=== PATIENT | female | born 1970 | race Caucasian/White ===

== ENCOUNTER 2017-02-07 19:49 | Inpatient (IN) ==
--- NOTE | 2017-02-07 20:43 | Emergency Department Note ---
Disposition Clinical Impression: Acute gallstone pancreatitis Disposition: Admitted As Inpatient Referrals: NO,PCP [Primary Care Provider] - Forms: Work/School Release, ED Satisfaction Letter General Adult HPI - General Chief complaint: ED Abdominal Pain Stated complaint: having gallbladder attack nausea Time Seen by Provider: 02/07/17 20:33 Source: patient, family Limitations: no limitations - History of Present Illness HPI Narrative: 46-year-old female reports emergency department with severe epigastric pain. She reports the pain started on Monday but then abated and now has become worse. She states she had an ultrasound of her gallbladder about 10 years ago which demonstrated stones. She has not had a cholecystectomy. The patient has had a hysterectomy remotely. There is no history of trauma. No fever. No vomiting or diarrhea but nausea is reported. The patient has no personal history of pancreatitis. There is no history of flank pain urinary problems vaginal discharge or bleeding or current . The patient denies any rashes or fevers. No chest pain or shortness of breath. She does not have a known history of cardiac disease she is not anticoagulated this time. The patient has had no previous history of gastritis or peptic ulcer disease no blackened or bloody stool is described. The patient points to the midepigastric area when describing her pain. There is no history of jaundice. No other complaints or concerns no syncope leg swelling or pain coughing up blood or fever. Pain Scale: 9 - Related Data Home Medications Medication Instructions Recorded Confirmed Cabergoline 05/15/15 05/15/15 Metformin 05/15/15 05/15/15 Somatuline Depot 05/15/15 05/15/15 Previous Rx's Medication Instructions Recorded Erythromycin OPTH Oint 0.5 gm BOTH EYES QID 7 Days 05/15/15 [Erythromycin] Allergies Allergy/AdvReac Type Severity Reaction Status Date / Time No Known Allergies Allergy Verified 02/07/17 19:54 All systems ED: reviewed and negative except as stated. Past Medical History - Past Medical History Medical history: Reports: other (Acromegaly, gallstones) Psychiatric history: Reports: no psych history - Social History Smoking Status: Never smoker Alcohol use: Reports: occasionally Drug use: Reports: none Physical Exam - General Limitations: no limitations General appearance: alert, in no apparent distress - Head Head exam: atraumatic, normocephalic, normal inspection - Eye Eye exam: Present: normal appearance, PERRL, EOMI. Absent: scleral icterus, conjunctival injection, miosis, mydriasis, periorbital swelling - ENT ENT exam: normal exam, normal oropharynx, mucous membranes moist, TM's normal bilaterally, normal external ear exam - Neck Neck exam: Present: normal inspection, full ROM, trachea midline. Absent: tenderness - Chest Chest inspection: Present: symmetric chest wall rise. Absent: tenderness - Respiratory Respiratory exam: Present: normal lung sounds bilaterally. Absent: respiratory distress, wheezes, stridor, accessory muscle use, prolonged expiratory phase - Cardiovascular Cardiovascular exam: Present: regular rate, normal rhythm, normal heart sounds - Abdominal Exam Abdominal exam: Present: soft, tenderness. Absent: distention, guarding, rebound, rigidity, Archer's sign, Rovsing's sign, tenderness at McBurney's Point , ascites, pulsatile mass Abdominal tenderness: Present: epigastrium, severe - Extremities Exam Extremities exam: Present: normal inspection, full ROM. Absent: tenderness, normal capillary refill, pedal edema, joint swelling, calf tenderness - Expanded Lower Extremity Exam Lower leg exam: Absent: Homans' sign Neurovascular/Tendon exam: Present: normal capillary refill. Absent: pulse deficit, motor deficit, sensory deficit, tendon deficit, extremity cold to touch , pallor - Back Exam Back exam: Present: normal inspection, full ROM. Absent: tenderness, CVA tenderness (R), CVA tenderness (L), vertebral tenderness - Neurological Exam Neurological exam: Present: alert, oriented X3, CN II-XII intact. Absent: motor sensory deficit - Psychiatric Psychiatric exam: Present: normal affect, normal mood - Skin Skin exam: Present: warm, dry, intact, normal color. Absent: rash, cyanosis, diaphoresis, erythema, pallor, mottled Course Vital Signs Temperature 98.1 F 02/07/17 19:50 Pulse Rate 79 02/07/17 19:50 Respiratory Rate 18 02/07/17 19:50 Blood Pressure 151/79 02/07/17 19:50 O2 Sat by Pulse Oximetry 99 02/07/17 19:50 Temperature 98.1 F 02/07/17 19:50 Pulse Rate 57 02/07/17 21:56 Respiratory Rate 12 02/07/17 21:56 Blood Pressure 111/68 02/07/17 21:56 O2 Sat by Pulse Oximetry 95 02/07/17 21:56 Oxygen Delivery Oxygen Delivery Room Air Medical Decision Making - MDM Narrative Medical decision making narrative: The patient has elevated liver function tests including direct bilirubin, lipase and amylase, her CT scan indicates ductal dilatation, it appears the patient has gallstone pancreatitis. She has no leukocytosis or fever. I discussed the case with Dr. Pitts, surgeon on-call, he recommends consulting Dr. Workman, machine erector as the primary toy consultant. Dr. Workman is not available this evening but is here tomorrow per Dr. Pitts and the call service verifies that he will be available tomorrow. I discussed the case with the hospitalist on-call regarding the patient's care, he feels comfortable admitting the patient to this facility and managing the patient with Dr. Workman as toy consultant tomorrow. The patient is currently stable. She was given IV fluids and antiemetics and pain medications. She is being admitted for further evaluation and management. Regarding antibiotic therapy, the hospitalist did not feel be required based on the patient's afebrile status with no leukocytosis. - Lab Data Lab results reviewed: Yes I reviewed the patient's lab results. Result diagrams: 02/07/17 21:05 02/07/17 21:05 Lab Results 02/07/17 02/07/17 02/07/17 Range/Units 20:38 21:05 21:05 WBC 7.4 (4.3-11.1) K/mcL RBC 4.11 (3.82-4.97) M/mcL Hgb 11.7 (11.5-15.4) g/dL Hct 36.2 (35.3-44.9) % MCV 88.1 (83.0-100.0) fL MCH 28.5 (28.0-33.3) pg MCHC 32.3 (31.6-35.5) g/dL RDW 14.4 (11.5-14.5) % Plt Count 212 (140-400) K/mcL MPV 11.8 (9.4-12.4) fL Immature Gran % 0.1 (0-4) % Seg Neutrophils % 81.5 % Lymphocytes % 9.3 % Monocytes % 8.0 % Eosinophils % 0.7 % Basophils % 0.4 % Neutrophils # 6.0 (1.6-8.9) K/mcL Lymphocytes # 0.7 (0.6-4.6) K/mcL Monocytes # 0.6 (0.0-1.3) K/mcL Eosinophils # 0.1 (0.0-0.6) K/mcL Basophils # 0.0 (0.0-0.2) K/mcL Sodium 143 (136-145) mEq/L Potassium 4.2 (3.5-4.5) mEq/L Chloride 108 (98-109) mEq/L Carbon Dioxide 26 (19-29) mEq/L BUN 21 H (7-20) mg/dL Creatinine 0.90 (0.57-1.11) mg/dL Est GFR ( Amer) > 60 (> 60) Est GFR (Non-Af Amer) > 60 (> 60) BUN/Creatinine Ratio 23 (6-26) Glucose 183 H (70-99) mg/dL Calculated Osmolality 304 H (280-300) Lactic Acid (0.5-2.2) mmol/L Calcium 10.0 (8.6-10.8) mg/dL Total Bilirubin 2.2 H (0.2-1.2) mg/dL Direct Bilirubin 1.7 H (0.0-0.5) mg/dL Indirect Bilirubin 0.5 (0.0-1.2) mg/dL AST 330 H (5-34) Units/L ALT 825 H (0-55) Units/L Alkaline Phosphatase 332 H (38-126) Units/L Troponin I (0-0.03) ng/mL C-Reactive Protein 4 (Less than 5) mg/L Serum Total Protein 7.3 (6.0-8.3) g/dL Albumin 3.8 (3.5-5.0) g/dL Globulin 3.5 (2.4-3.5) g/dL Albumin/Globulin Ratio 1.1 (1.1-2.2) Amylase 723 H (25-125) Units/L Lipase 2244 H (8-78) Units/L Urine Color Celeste A (Yellow) Urine Clarity Hazy A (Clear) Urine pH 5.5 (5.0-8.0) pH Units Ur Specific [place] > 1.030 H (1.010-1.025) Urine Protein Negative (Neg-Trace) mg/dL Urine Glucose (UA) Normal (Normal) mg/dL Urine Ketones 15 H (Negative) mg/dL Urine Blood Negative (Negative) Urine Nitrite Negative (Negative) Urine Bilirubin Moderate H (Negative) Urine Urobilinogen 2.0 H (Normal) mg/dL Ur Leukocyte Esterase Small H (Negative) Urine Microscopic RBC 0-3 (0-3) per hpf Urine Microscopic WBC 5-15 H (0-3) per hpf Ur Squamous Epith Cells Moderate H (None-Few) per lpf Calcium Oxalate Crystal Present Urine Bacteria None Seen (None-Few) per hpf Hyaline Casts None Seen (None-Few) per lpf Ur Culture Indicated? YES A (NO) 02/07/17 02/07/17 Range/Units 21:05 21:05 WBC (4.3-11.1) K/mcL RBC (3.82-4.97) M/mcL Hgb (11.5-15.4) g/dL Hct (35.3-44.9) % MCV (83.0-100.0) fL MCH (28.0-33.3) pg MCHC (31.6-35.5) g/dL RDW (11.5-14.5) % Plt Count (140-400) K/mcL MPV (9.4-12.4) fL Immature Gran % (0-4) % Seg Neutrophils % % Lymphocytes % % Monocytes % % Eosinophils % % Basophils % % Neutrophils # (1.6-8.9) K/mcL Lymphocytes # (0.6-4.6) K/mcL Monocytes # (0.0-1.3) K/mcL Eosinophils # (0.0-0.6) K/mcL Basophils # (0.0-0.2) K/mcL Sodium (136-145) mEq/L Potassium (3.5-4.5) mEq/L Chloride (98-109) mEq/L Carbon Dioxide (19-29) mEq/L BUN (7-20) mg/dL Creatinine (0.57-1.11) mg/dL Est GFR ( Amer) (> 60) Est GFR (Non-Af Amer) (> 60) BUN/Creatinine Ratio (6-26) Glucose (70-99) mg/dL Calculated Osmolality (280-300) Lactic Acid 1.9 (0.5-2.2) mmol/L Calcium (8.6-10.8) mg/dL Total Bilirubin (0.2-1.2) mg/dL Direct Bilirubin (0.0-0.5) mg/dL Indirect Bilirubin (0.0-1.2) mg/dL AST (5-34) Units/L ALT (0-55) Units/L Alkaline Phosphatase (38-126) Units/L Troponin I 0.00 (0-0.03) ng/mL C-Reactive Protein (Less than 5) mg/L Serum Total Protein (6.0-8.3) g/dL Albumin (3.5-5.0) g/dL Globulin (2.4-3.5) g/dL Albumin/Globulin Ratio (1.1-2.2) Amylase (25-125) Units/L Lipase (8-78) Units/L Urine Color (Yellow) Urine Clarity (Clear) Urine pH (5.0-8.0) pH Units Ur Specific [place] (1.010-1.025) Urine Protein (Neg-Trace) mg/dL Urine Glucose (UA) (Normal) mg/dL Urine Ketones (Negative) mg/dL Urine Blood (Negative) Urine Nitrite (Negative) Urine Bilirubin (Negative) Urine Urobilinogen (Normal) mg/dL Ur Leukocyte Esterase (Negative) Urine Microscopic RBC (0-3) per hpf Urine Microscopic WBC (0-3) per hpf Ur Squamous Epith Cells (None-Few) per lpf Calcium Oxalate Crystal Urine Bacteria (None-Few) per hpf Hyaline Casts (None-Few) per lpf Ur Culture Indicated? (NO) - Radiology Data Radiology results reviewed: Yes I reviewed the patient's radiology results.
[2017-02-07 21:06] LABS: Bilirubin,Urine Moderate (Negative); Blood,Urine Negative (Negative); Glucose,Urine (UA) Normal (Normal); Ketones,Urine 15 mg/dL (Negative); Leukocyte Esterase,Urine Small (Negative); Nitrite,Urine Negative (Negative); PH,Urine 5.5 pH Units (5.0-8.0); Protein,Urine Negative (Neg-Trace); Specific Gravity,Urine > 1.030 (1.010-1.025)
[2017-02-07 21:13] LABS: Bacteria,Urine None Seen per hpf (None-Few); Hyaline Casts,Urine None Seen per lpf (None-Few); Squamous Epithelial Cell,Urine Moderate per lpf (None-Few)
[2017-02-07 21:21] LABS: Basophils % 0.4 %; Eosinophils # 0.1 K/mcL (0.0-0.6); Eosinophils % 0.7 %; Hematocrit 36.2 % (35.3-44.9); Hemoglobin 11.7 g/dL (11.5-15.4); Immature Granulocytes % 0.1 % (0-4); Lymphocytes # 0.7 K/mcL (0.6-4.6); Lymphocytes % 9.3 %; Mean Corpuscular HGB Conc 32.3 g/dL (31.6-35.5); Mean Corpuscular Hemoglobin 28.5 pg (28.0-33.3); Mean Corpuscular Volume 88.1 fL (83.0-100.0); Mean Platelet Volume 11.8 fL (9.4-12.4); Monocytes # 0.6 K/mcL (0.0-1.3); Platelet Count 212 K/mcL (140-400); Red Blood Count 4.11 M/mcL (3.82-4.97); Red Cell Distribution Width 14.4 % (11.5-14.5); Segmented Neutrophils % 81.5 %
[2017-02-07 21:23] LABS: Clarity,Urine Hazy (Clear); Color,Urine Amber (Yellow)
[2017-02-07] MEDS ORDERED: *HR* HYDROmorphone (PF) 1 MG/ML SYRINGE IVP ONE (21:29)
[2017-02-07] MEDS ORDERED: Ondansetron 4 MG/2 ML VIAL IVP ONE (21:29)
[2017-02-07] MEDS ORDERED: 0.9 % Sodium Chloride 1,000 ML IVC ONE (21:30)
[2017-02-07 21:37] LABS: Alanine Aminotransferase 825 Units/L (0-55); Albumin 3.8 g/dL (3.5-5.0); Albumin/Globulin Ratio 1.1 (1.1-2.2); Alkaline Phosphatase 332 Units/L (38-126); Amylase 723 Units/L (25-125); Aspartate Amino Transferase 330 Units/L (5-34); BUN/Creatinine Ratio 23 (6-26); Bilirubin,Direct 1.7 mg/dL (0.0-0.5); Bilirubin,Indirect 0.5 mg/dL (0.0-1.2); Bilirubin,Total 2.2 mg/dL (0.2-1.2); Blood Urea Nitrogen 21 mg/dL (7-20); Carbon Dioxide 26 mEq/L (19-29); Chloride 108 mEq/L (98-109); Globulin 3.5 g/dL (2.4-3.5); Glucose 183 mg/dL (70-99); Osmolality,Calculated 304 (280-300); Potassium 4.2 mEq/L (3.5-4.5); Sodium 143 mEq/L (136-145); Total Protein 7.3 g/dL (6.0-8.3); eGFR For African Americans > 60 (> 60); eGFR For Non-African Americans > 60 (> 60)
[2017-02-07 21:38] LABS: Calcium Oxalate Crystals,Urine Present
[2017-02-07 21:39] LABS: RBC,Urine 0-3 per hpf (0-3)
[2017-02-07 22:08] LABS: C-Reactive Protein 4 mg/L (Less than 5)
[2017-02-07 22:12] LABS: Lipase 2244 Units/L (8-78)
[2017-02-08] MEDS ORDERED: *HR* HYDROmorphone (PF) 1 MG/ML SYRINGE IVP PRN (03:02)
[2017-02-08] MEDS ORDERED: Naloxone 0.4 MG/ML INJ IVP PRN ×2 (03:02)
[2017-02-08] MEDS ORDERED: *HR* Morphine 2 MG/ML SYRINGE IVP PRN (03:02)
[2017-02-08] MEDS ORDERED: Acetaminophen 325 MG TABLET PO PRN (03:02)
[2017-02-08] MEDS ORDERED: Ondansetron 4 MG/2 ML VIAL IVP PRN (03:02)
--- NOTE | 2017-02-08 03:09 | Internal Med History&Physical ---
Date of Encounter: 02/08/17 Time of Encounter: 03:06 Assessment and Plan (1) Acute gallstone pancreatitis Current visit: Yes Status: Acute Acute pancreatitis likely secondary to cholelithiasis Surgery and GI consult for possible ERCP and cholecystectomy at some point Keep nothing by mouth, IV fluids, Dilaudid as needed Follow lipase Protonix IV for GI prophylaxis and sequential compression devices for DVT prophylaxis. The patient will be admitted as inpatient, expected to stay more than 2 midnights. Full code. Time spent on this admission 40 minutes (2) Dehydration Current visit: Yes Status: Acute Secondary to pancreatitis (3) Acromegaly Current visit: Yes Status: Acute (4) Accelerated hypertension Current visit: Yes Status: Acute May use hydralazine as needed (5) Cholelithiasis Current visit: Yes Status: Acute Qualifiers: Cholelithiasis location: gallbladder Cholecystitis presence: without cholecystitis Biliary obstruction: with biliary obstruction Qualified Code(s ): K80.21 - Calculus of gallbladder without cholecystitis with obstruction (6) Hyperglycemia Current visit: Yes Status: Acute Likely related to pancreatitis next Consider insulin sliding scale Internal Medicine - H&P: HPI Chief complaint: Abdominal pain Admitted From: Emergency Dept History of present illness: Ms. Mcintosh is a 46 year old female with a past medical history of acromegaly, cholelithiasis, came complaining of severe abdominal pain that started on Monday. The patient says that she does not drink alcohol regularly but drank 1 beer on Monday she does not remember the last time that she drank before that time. She was diagnosed with gall bladder stones 10 years ago but did not have a cholecystectomy. Described the pain as 10 out of 10 in intensity sharp, epigastric radiating to the back, accompanied by nausea and vomiting. CT scan of the abdomen shows biliary duct dilatation with distended gallbladder containing sludge and multiple stones. Lipase is 2244 amylase 723 AST 330 ALT [address] Pitts was contacted by the ER physician and recommended to consult Dr. Workman for a possible ERCP. Bilirubin total is 2.2 direct is 1.7. She is dehydrated, received Dilaudid in the emergency room. Blood pressure is 151/79. 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), hysterectomy, other (Left knee surgeries 2, tonsillectomy, hysterectomy, transnasal surgery for hypophysis tumor) - Social History Smoking Status: Never smoker Alcohol use: occasionally Drug use: none - Family History Mother Living Status: Still Living Hx Family Cardiac Disorders: No (HTN) Hx Family Cancer: No (ovarian) - Additional Family History Additional family history: Mother with CAD and father with diabetes Internal Medicine - H&P: Meds Somatuline Depot 25 mg IM DAILY 05/15/15 [History] Allergies No Known Allergies Allergy (Verified 02/07/17 19:54) All Systems PM: A 10-system review of systems was performed and is negative for pertinent findings except as documented above in the HPI. Review of systems: Abdominal pain, other systems out of the 10 reviewed were negative UA shows 15 white blood cells but she denies any dysuria - Constitutional Vitals: Temp Pulse Resp BP Pulse Ox 97.6 F 56 15 113/77 95 02/08/17 01:21 02/08/17 01:21 02/08/17 01:21 02/08/17 01:21 02/08/17 01:21 General appearance: Present: A&O X 3 (Dry mucosa) - Head Head exam: Present: atraumatic, normocephalic - Eye Eye exam: Present: PERRL, conjuntiva pink, sclera anicteric Pupils: Present: PERRL - Neck Neck exam general surgery: Present: supple, trachea midline. Absent: lymphadenopathy - Respiratory Respiratory exam: Present: CTAB. Absent: accessory muscle use, rales, rhonchi, wheezes - Cardiovascular Cardiovascular exam: Present: RRR, +S1, +S2. Absent: diastolic murmur, gallop, rubs, systolic murmur - GI/Abdominal GI/Abdominal exam: Present: hypoactive bowel sounds, normal bowel sounds, soft, tenderness (Epigastric tenderness), no peritoneal signs. Absent: distended - Extremities Exam Extremities exam: Present: warm, radial pulses palpable and symetrical. Absent : calf tenderness, cyanotic, pedal edema - Neurological Exam Neurological exam: Present: CN II-XII intact, oriented X3, no focal deficits. Absent: pronater drift, facial droop, speech deficit - Skin Skin exam: Present: dry, intact Internal Med - H&P Results - Labs CBC & Chem 7: 02/07/17 21:05 02/07/17 21:05
[2017-02-08] MEDS ORDERED: D5% in Water 1,000 ML IVC PRN (03:15)
[2017-02-08] MEDS ORDERED: Dextrose Gel 15 GM PO PRN ×2 (03:15)
[2017-02-08] MEDS ORDERED: *HR* Dextrose 50 % in Water (Syg) 50 ML SYRINGE IVP PRN (03:15)
[2017-02-08] MEDS: 0.9 % Sodium Chloride 1,000 ML IVC SCH ×4 (03:29→20:51)
[2017-02-08 05:26] LABS: Hematocrit 32.6 % (35.3-44.9); Hemoglobin 10.5 g/dL (11.5-15.4); Mean Corpuscular HGB Conc 32.2 g/dL (31.6-35.5); Mean Corpuscular Hemoglobin 27.9 pg (28.0-33.3); Mean Corpuscular Volume 86.5 fL (83.0-100.0); Mean Platelet Volume 11.8 fL (9.4-12.4); Platelet Count 207 K/mcL (140-400); Red Blood Count 3.77 M/mcL (3.82-4.97); Red Cell Distribution Width 14.3 % (11.5-14.5)
[2017-02-08 05:45] LABS: Alanine Aminotransferase 713 Units/L (0-55); Albumin 3.2 g/dL (3.5-5.0); Albumin/Globulin Ratio 1.1 (1.1-2.2); Alkaline Phosphatase 305 Units/L (38-126); Aspartate Amino Transferase 335 Units/L (5-34); BUN/Creatinine Ratio 24 (6-26); Bilirubin,Total 2.2 mg/dL (0.2-1.2); Blood Urea Nitrogen 17 mg/dL (7-20); Calcium 9.1 mg/dL (8.6-10.8); Carbon Dioxide 22 mEq/L (19-29); Chloride 110 mEq/L (98-109); Chol/HDL Ratio 2.3 (0-4.9); Cholesterol 181 mg/dL (< 200); Globulin 2.9 g/dL (2.4-3.5); Glucose 143 mg/dL (70-99); HDL Cholesterol 78 mg/dL (40-59); LDL Cholesterol,Calculated 97 mg/dL (0-99); Osmolality,Calculated 294 (280-300); Potassium 3.9 mEq/L (3.5-4.5); Sodium 140 mEq/L (136-145); Total Protein 6.1 g/dL (6.0-8.3); Triglycerides 30 mg/dL (< 150); eGFR For African Americans > 60 (> 60); eGFR For Non-African Americans > 60 (> 60)
[2017-02-08 06:35] LABS: Lipase 1970 Units/L (8-78)
[2017-02-08] MEDS: Insulin LISPRO 300 UNITS/3 ML VIAL SQ SCH ×3 (07:38→19:32)
[2017-02-08] MEDS: Pantoprazole 40 MG VIAL IVP SCH (07:42)
--- NOTE | 2017-02-08 09:45 | Event Note ---
Date of Encounter: 02/08/17 Time of Encounter: 09:00 46 F presented with epigastric pain. Lipase >2000. bilirrubin 2.2. DB 1.7. AST 335. ALT 713. AL phos 305. triglycerides 30. CTAP shows distended gallbladder containing sludge or multiples tiny stones and biliary duct dilation, unremarkable pancreas. Started on IV fluids, IV dilaudid and NPO. Now, patient reports mild nausea and epigastric pain /10. no vomiting. No history of pancreatitis. abdomen soft, non-distended, mild tenderness in epigastric area. a/p 1. Acute pancreatitis. 2. Gallbladder stones. 3. Hyperbilirrubinemia IV fluids. IV dilaudid prn. NPO. Us gallbladder. MRCP. close monitor of LFTs. Surgery and GI consulted.
--- NOTE | 2017-02-08 10:43 | Electrocardiograph Report ---
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
--- NOTE | 2017-02-08 12:35 | Event Note ---
<Deniz Jones - Last Filed: 02/08/17 12:32> Date of Encounter: 02/08/17 Time of Encounter: 11:30 Attempted to see patient 3 times, and patient was unavailable. Chrat reviewed, full consult tomorrow. Plan for ERCP tomorrow. Keep NPO at midnight. <Amadeo Workman - Last Filed: 02/08/17 18:50> Date of Encounter: 02/08/17 Time of Encounter: 18:00 MRCP negative for any stone. pain has resolved. We will start the patient on clear nothing by mouth after midnight no ERCP gallbladder surgery as per Dr. Pitts
[2017-02-08] MEDS: SOMAVERT SQ SCH (12:41)
--- NOTE | 2017-02-08 15:15 | General Surgery Consult Note ---
<Shantel Lutz Rashmi - Last Filed: 02/08/17 15:10> Date of Encounter: 02/08/17 Time of Encounter: 14:30 Assessment and Plan (1) Acute gallstone pancreatitis Current Visit: Yes Status: Acute Nothing by mouth IV fluids Supportive care and pain control GI has been consulted for possible ERCP We will continue to follow and assess progress and plan for laparoscopic cholecystectomy with resolution of pancreatitis Repeat a.m. labs Incentive Spirometer every 1 hour while awake History of Present Illness Consult date: 02/08/17 Reason for consult: other (gallstone pancreatitis) Requesting physician: Jensen Hdez History of present illness: Mrs. Mcintosh is a 46 year old female with a history of acromegaly, pituitary tumor, iron deficiency anemia. She reported to the emergency department with a 48 hour history of epigastric abdominal pain. She states the pain was constant and severe and located in the epigastric region. She has never experienced pain like this in the past. The pain is sharp and stabbing. She did experience associated nausea without vomiting. She had loss of appetite. She admits to difficulty taking a deep breath due to abdominal discomfort. Denies any chest pains. She admits to passing dark urine despite being well hydrated. Denies any difficulty with urination. Her laboratory studies and radiologic studies are consistent with gallstone pancreatitis. We have been asked to see and evaluate the patient for recommendations. 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), hysterectomy, other (Left knee surgeries 2, T&A, hysterectomy, transnasal surgery for pituitary tumor, tubal ligation) - Social History Smoking Status: Never smoker Alcohol use: occasionally Drug use: none - Family History Mother Living Status: Still Living Hx Family Cardiac Disorders: No (HTN) Hx Family Cancer: No (ovarian) Medications and Allergies Pegvisomant [Somavert] 25 mg SQ DAILY 05/15/15 [History] Allergies No Known Allergies Allergy (Verified 02/07/17 19:54) Review of Systems All systems PM: reviewed and no additional remarkable complaints except as stated (in the HPI) All systems PM: A 10-system review of systems was performed and is negative for pertinent findings except as documented above in the HPI. General Surgery Exam Initial Vital Signs Temp Pulse Resp BP Pulse Ox 98.1 F 79 18 151/79 99 02/07/17 19:50 02/07/17 19:50 02/07/17 19:50 02/07/17 19:50 02/07/17 19:50 - General physical appearance well developed, well nourished, no distress - Eyes normal ocular movement - ENT normal mucosa, atraumatic, normocephalic - Neck trachea midline - Respiratory normal respiratory effort, clear to auscultation - Cardiovascular Cardiovascular exam: Present: RRR - Abdomen Abdomen general surgery: Present: bowel sounds present, soft, tender Abdominal Tenderness: Present: epigastic - Integumentary Integumentary general surgery: Present: warm and dry - Neurologic Present: CN 2-12 grossly intact - Musculoskeletal Present: normal gait, normal posture - Psychiatric Psychiatric general surgery: Present: appropriate, oriented to person, oriented to place, oriented to time, speech is normal, memory intact Exam Initial Vital Signs Temp Pulse Resp BP Pulse Ox 98.1 F 79 18 151/79 99 02/07/17 19:50 02/07/17 19:50 02/07/17 19:50 02/07/17 19:50 02/07/17 19:50 Results - Labs 02/08/17 04:55 02/08/17 04:55 Abnormal lab results RBC 3.77 M/mcL (3.82-4.97) L 02/08/17 04:55 Hgb 10.5 g/dL (11.5-15.4) L 02/08/17 04:55 Hct 32.6 % (35.3-44.9) L 02/08/17 04:55 MCH 27.9 pg (28.0-33.3) L 02/08/17 04:55 Chloride 110 mEq/L (98-109) H 02/08/17 04:55 Glucose 143 mg/dL (70-99) H 02/08/17 04:55 Total Bilirubin 2.2 mg/dL (0.2-1.2) H 02/08/17 04:55 Direct Bilirubin 1.7 mg/dL (0.0-0.5) H 02/07/17 21:05 AST 335 Units/L (5-34) H 02/08/17 04:55 ALT 713 Units/L (0-55) H 02/08/17 04:55 Alkaline Phosphatase 305 Units/L (38-126) H 02/08/17 04:55 Albumin 3.2 g/dL (3.5-5.0) L 02/08/17 04:55 HDL Cholesterol 78 mg/dL (40-59) H 02/08/17 04:55 Amylase 723 Units/L (25-125) H 02/07/17 21:05 Lipase 1970 Units/L (8-78) H 02/08/17 04:55 Urine Color Celeste (Yellow) A 02/07/17 20:38 Urine Clarity Hazy (Clear) A 02/07/17 20:38 Ur Specific Michael > 1.030 (1.010-1.025) H 02/07/17 20:38 Urine Ketones 15 mg/dL (Negative) H 02/07/17 20:38 Urine Bilirubin Moderate (Negative) H 02/07/17 20:38 Urine Urobilinogen 2.0 mg/dL (Normal) H 02/07/17 20:38 Ur Leukocyte Esterase Small (Negative) H 02/07/17 20:38 Urine Microscopic WBC 5-15 per hpf (0-3) H 02/07/17 20:38 Ur Squamous Epith Cells Moderate per lpf (None-Few) H 02/07/17 20:38 Ur Culture Indicated? YES (NO) A 02/07/17 20:38 Diabetes panel 02/08/17 Range/Units 04:55 Sodium 140 (136-145) mEq/L Potassium 3.9 (3.5-4.5) mEq/L Chloride 110 H (98-109) mEq/L Carbon Dioxide 22 (19-29) mEq/L BUN 17 (7-20) mg/dL Creatinine 0.71 (0.57-1.11) mg/dL Glucose 143 H (70-99) mg/dL Calcium 9.1 (8.6-10.8) mg/dL AST 335 H (5-34) Units/L ALT 713 H (0-55) Units/L Alkaline Phosphatase 305 H (38-126) Units/L Albumin 3.2 L (3.5-5.0) g/dL Triglycerides 30 (< 150) mg/dL HDL Cholesterol 78 H (40-59) mg/dL Calcium panel 02/08/17 Range/Units 04:55 Calcium 9.1 (8.6-10.8) mg/dL Albumin 3.2 L (3.5-5.0) g/dL Pituitary panel 02/08/17 Range/Units 04:55 Sodium 140 (136-145) mEq/L Potassium 3.9 (3.5-4.5) mEq/L Chloride 110 H (98-109) mEq/L Carbon Dioxide 22 (19-29) mEq/L BUN 17 (7-20) mg/dL Creatinine 0.71 (0.57-1.11) mg/dL Glucose 143 H (70-99) mg/dL Calcium 9.1 (8.6-10.8) mg/dL Adrenal panel 02/08/17 Range/Units 04:55 Sodium 140 (136-145) mEq/L Potassium 3.9 (3.5-4.5) mEq/L Chloride 110 H (98-109) mEq/L Carbon Dioxide 22 (19-29) mEq/L BUN 17 (7-20) mg/dL Creatinine 0.71 (0.57-1.11) mg/dL Glucose 143 H (70-99) mg/dL Calcium 9.1 (8.6-10.8) mg/dL Total Bilirubin 2.2 H (0.2-1.2) mg/dL AST 335 H (5-34) Units/L ALT 713 H (0-55) Units/L Alkaline Phosphatase 305 H (38-126) Units/L Albumin 3.2 L (3.5-5.0) g/dL All other labs normal. - Imaging CT scan - abdomen: report reviewed CT scan - pelvis: report reviewed US - abdomen: report reviewed Additional studies: Abdomen/Pelvis CT 02/07/17 21:32 IMPRESSION: Distended gallbladder containing sludge or multiple tiny stones and biliary ductal dilation but no scan evidence for acute cholecystitis. D/ / Artis Galeas MD / Artis Galeas MD Interpreting Provider: Artis Galeas MD Abdomen MRI 02/08/17 07:22 IMPRESSION: 1. Mild intra and extrahepatic biliary dilatation. Common bile duct measures 8 mm, previously [address] dated 02/07/2017. No choledocholithiasis. Findings may be secondary to a recently passed stone. 2. Cholelithiasis without definite MRI evidence of acute cholecystitis. D/ / 02/08/2017 12:45:47 Ayah Blanco MD / vonda Interpreting Provider: Ayah Blanco MD Gallbladder Ultrasound 02/08/17 07:23 IMPRESSION: 1. Cholelithiasis without evidence for acute cholecystitis. 2. Biliary ductal dilatation. Please refer to subsequent MRCP. D/ / Sesar Hunter MD / Sesar Hunter MD Interpreting Provider: Sesar Hunter MD Consult Discharge Plan - Plan Referrals: Eron Jackson MD [Partnered Physician] - 02/23/17 10:00 am (Please bring the new patient packet you will receive in the mail. You will also need to bring your photo ID, insurance card and a list of all meds you are taking. If you have to cancel, please give a 24 hour notice. Thank you) - Attending Attestation I examined this patient and my medical decision-making was reviewed with the COMMUNICATIONS PROFESSOR/PA/Advanced Practice Nurse/Resident Physician. I agree with the documented findings, disposition and treatment plan as described except to the extent set forth below. <Calixto Pitts M - Last Filed: 02/09/17 12:28> Date of Encounter: 02/09/17 Assessment and Plan (1) Acute gallstone pancreatitis Current Visit: Yes Status: Acute Review of Systems All systems PM: A 10-system review of systems was performed and is negative for pertinent findings except as documented above in the HPI. General Surgery Exam Initial Vital Signs Temp Pulse Resp BP Pulse Ox 98.1 F 79 18 151/79 99 02/07/17 19:50 02/07/17 19:50 02/07/17 19:50 02/07/17 19:50 02/07/17 19:50 Exam Initial Vital Signs Temp Pulse Resp BP Pulse Ox 98.1 F 79 18 151/79 99 02/07/17 19:50 02/07/17 19:50 02/07/17 19:50 02/07/17 19:50 02/07/17 19:50 Results - Labs 02/09/17 04:59 02/09/17 04:59 Abnormal lab results RBC 3.57 M/mcL (3.82-4.97) L 02/09/17 04:59 Hgb 10.1 g/dL (11.5-15.4) L 02/09/17 04:59 Hct 32.1 % (35.3-44.9) L 02/09/17 04:59 MCHC 31.5 g/dL (31.6-35.5) L 02/09/17 04:59 RDW 14.7 % (11.5-14.5) H 02/09/17 04:59 Chloride 111 mEq/L (98-109) H 02/09/17 04:59 Magnesium 1.5 mg/dL (1.6-2.6) L 02/09/17 04:59 Direct Bilirubin 0.6 mg/dL (0.0-0.5) H 02/09/17 04:59 AST 146 Units/L (5-34) H 02/09/17 04:59 ALT 517 Units/L (0-55) H 02/09/17 04:59 Alkaline Phosphatase 265 Units/L (38-126) H 02/09/17 04:59 Serum Total Protein 5.7 g/dL (6.0-8.3) L 02/09/17 04:59 Albumin 3.1 g/dL (3.5-5.0) L 02/09/17 04:59 HDL Cholesterol 78 mg/dL (40-59) H 02/08/17 04:55 Urine Color Celeste (Yellow) A 02/07/17 20:38 Urine Clarity Hazy (Clear) A 02/07/17 20:38 Ur Specific Michael > 1.030 (1.010-1.025) H 02/07/17 20:38 Urine Ketones 15 mg/dL (Negative) H 02/07/17 20:38 Urine Bilirubin Moderate (Negative) H 02/07/17 20:38 Urine Urobilinogen 2.0 mg/dL (Normal) H 02/07/17 20:38 Ur Leukocyte Esterase Small (Negative) H 02/07/17 20:38 Urine Microscopic WBC 5-15 per hpf (0-3) H 02/07/17 20:38 Ur Squamous Epith Cells Moderate per lpf (None-Few) H 02/07/17 20:38 Ur Culture Indicated? YES (NO) A 02/07/17 20:38 Diabetes panel 02/09/17 02/09/17 Range/Units 04:59 04:59 Sodium 142 (136-145) mEq/L Potassium 3.9 (3.5-4.5) mEq/L Chloride 111 H (98-109) mEq/L Carbon Dioxide 25 (19-29) mEq/L BUN 10 (7-20) mg/dL Creatinine 0.71 (0.57-1.11) mg/dL Glucose 83 (70-99) mg/dL Calcium 8.6 (8.6-10.8) mg/dL AST 144 H 146 H (5-34) Units/L ALT 509 H 517 H (0-55) Units/L Alkaline Phosphatase 268 H 265 H (38-126) Units/L Albumin 3.1 L 3.1 L (3.5-5.0) g/dL Calcium panel 02/09/17 02/09/17 Range/Units 04:59 04:59 Calcium 8.6 (8.6-10.8) mg/dL Albumin 3.1 L 3.1 L (3.5-5.0) g/dL Pituitary panel 02/09/17 Range/Units 04:59 Sodium 142 (136-145) mEq/L Potassium 3.9 (3.5-4.5) mEq/L Chloride 111 H (98-109) mEq/L Carbon Dioxide 25 (19-29) mEq/L BUN 10 (7-20) mg/dL Creatinine 0.71 (0.57-1.11) mg/dL Glucose 83 (70-99) mg/dL Calcium 8.6 (8.6-10.8) mg/dL Adrenal panel 02/09/17 02/09/17 Range/Units 04:59 04:59 Sodium 142 (136-145) mEq/L Potassium 3.9 (3.5-4.5) mEq/L Chloride 111 H (98-109) mEq/L Carbon Dioxide 25 (19-29) mEq/L BUN 10 (7-20) mg/dL Creatinine 0.71 (0.57-1.11) mg/dL Glucose 83 (70-99) mg/dL Calcium 8.6 (8.6-10.8) mg/dL Total Bilirubin 1.0 D 1.0 (0.2-1.2) mg/dL AST 144 H 146 H (5-34) Units/L ALT 509 H 517 H (0-55) Units/L Alkaline Phosphatase 268 H 265 H (38-126) Units/L Albumin 3.1 L 3.1 L (3.5-5.0) g/dL All other labs normal. - Attending Attestation I reviewed the assessment and evaluation with the nurse practitioner present. Patient with recent onset of epigastric abdominal pain has been sharp in nature. She states that she has had a history of some mild discomfort that has been going on for a year or 2 that was intermittent in nature. Currently states her pain is improved (absent). She denies any nausea or vomiting and is nontender to palpation. Agree with evaluation for possible ERCP due to her gallstone pancreatitis. Discussed with the patient about the possibility of performing a laparoscopic cholecystectomy during this admission depending upon how she fares doing in the next several days with regards to her pancreatitis and whether or not she has an ERCP.
[2017-02-09] MEDS: Insulin LISPRO 300 UNITS/3 ML VIAL SQ SCH ×4 (01:51→18:15)
[2017-02-09] MEDS: 0.9 % Sodium Chloride 1,000 ML IVC SCH ×2 (01:55→07:03)
[2017-02-09 05:48] LABS: Basophils % 0.5 %; Eosinophils # 0.1 K/mcL (0.0-0.6); Eosinophils % 2.7 %; Hematocrit 32.1 % (35.3-44.9); Hemoglobin 10.1 g/dL (11.5-15.4); Immature Granulocytes % 0.2 % (0-4); Lymphocytes # 1.4 K/mcL (0.6-4.6); Lymphocytes % 30.9 %; Mean Corpuscular HGB Conc 31.5 g/dL (31.6-35.5); Mean Corpuscular Hemoglobin 28.3 pg (28.0-33.3); Mean Corpuscular Volume 89.9 fL (83.0-100.0); Mean Platelet Volume 12.2 fL (9.4-12.4); Monocytes # 0.4 K/mcL (0.0-1.3); Monocytes % 8.6 %; Neutrophils # 2.5 K/mcL (1.6-8.9); Platelet Count 174 K/mcL (140-400); Red Blood Count 3.57 M/mcL (3.82-4.97); Red Cell Distribution Width 14.7 % (11.5-14.5); Segmented Neutrophils % 57.1 %
[2017-02-09 06:11] LABS: Albumin 3.1 g/dL (3.5-5.0); Albumin/Globulin Ratio 1.2 (1.1-2.2); Bilirubin,Direct 0.6 mg/dL (0.0-0.5); Bilirubin,Indirect 0.4 mg/dL (0.0-1.2); Globulin 2.6 g/dL (2.4-3.5); Magnesium 1.5 mg/dL (1.6-2.6); Total Protein 5.7 g/dL (6.0-8.3)
[2017-02-09 06:12] LABS: Alanine Aminotransferase 509 Units/L (0-55); Albumin 3.1 g/dL (3.5-5.0); Albumin/Globulin Ratio 1.2 (1.1-2.2); Alkaline Phosphatase 268 Units/L (38-126); Aspartate Amino Transferase 144 Units/L (5-34); BUN/Creatinine Ratio 14 (6-26); Blood Urea Nitrogen 10 mg/dL (7-20); Calcium 8.6 mg/dL (8.6-10.8); Carbon Dioxide 25 mEq/L (19-29); Chloride 111 mEq/L (98-109); Globulin 2.6 g/dL (2.4-3.5); Glucose 83 mg/dL (70-99); Lipase 49 Units/L (8-78); Osmolality,Calculated 292 (280-300); Potassium 3.9 mEq/L (3.5-4.5); Sodium 142 mEq/L (136-145); Total Protein 5.7 g/dL (6.0-8.3); eGFR For African Americans > 60 (> 60); eGFR For Non-African Americans > 60 (> 60)
[2017-02-09 06:28] LABS: Hepatitis A Antibody IgM Nonreactive (Nonreactive); Hepatitis B Core IgM Nonreactive (Nonreactive); Hepatitis B Surface Antigen Nonreactive (Nonreactive); Hepatitis C Virus Antibody Nonreactive (Nonreactive)
[2017-02-09] MEDS ORDERED: Magnesium Sulfate 1 GM in D5% in Water 100 ML IVPB ONE (08:34)
--- NOTE | 2017-02-09 08:43 | Internal Med Progress Note ---
<Ayah Garcia - Last Filed: 02/09/17 13:37> Date of Encounter: 02/09/17 Time of Encounter: 08:43 - Assessment and plan (1) Acute gallstone pancreatitis Current Visit: Yes Status: Acute Assessment and plan: Patient presented with signs and symptoms of acute gallstone pancreatitis with physical exam correlated to imaging as below. Common bile duct initially [address] decrease to 8 mm on MRI suggestive of passage of stone. On admission , laboratory results demonstrated elevated total bilirubin at 2.2, elevated direct bilirubin at 1.7, AST 330, ALT 825, alkaline phosphatase 332, amylase 723, lipase 2244. Laboratories today demonstrate trending downward further suggestive of stone passage. Total bilirubin 1.0, direct bilirubin 0.6 , AST 146, ALT 517, alkaline phosphatase 265, amylase 102, lipase 49. Given patient's downtrending labs in improving clinical status plan is to proceed with laparoscopic cholecystectomy with intraoperative cholangiogram as ERCP is not required at this time. On physical exam, patient's abdomen is soft nontender nondistended no peritoneal signs. Patient denies any nausea, vomiting , abdominal pain she is Asymptomatic at this time. Vital stable. Afebrile. Nonfocal neuro exam. Abdomen/Pelvis CT 02/07/17 21:32 IMPRESSION: Distended gallbladder containing sludge or multiple tiny stones and biliary ductal dilation but no scan evidence for acute cholecystitis. Abdomen MRI 02/08/17 07:22 IMPRESSION: 1. Mild intra and extrahepatic biliary dilatation. Common bile duct measures 8 mm, previously [address] dated 02/07/2017. No choledocholithiasis. Findings may be secondary to a recently passed stone. 2. Cholelithiasis without definite MRI evidence of acute cholecystitis. Gallbladder Ultrasound 02/08/17 07:23 IMPRESSION: 1. Cholelithiasis without evidence for acute cholecystitis. 2. Biliary ductal dilatation. Please refer to subsequent MRCP. Supportive care and pain control Nothing by mouth Decrease IV fluids at 100 mL per hour Incentive spirometer every 1 hour while awake PPI therapy: Patoprazole 40 mg IVP daily Anti-emetic: Zofran for nausea Hyperglycemia secondary to pancreatitis: Continue sliding scale insulin as needed per protocol. Surgery is following. Plan for cholecystectomy in next 12-[address] Pitts. Pending surgery recommendations for discharge. The assessment and plan as outlined above was discussed with the patient and/or family members who expressed understanding and agreement. All questions were answered. (2) Acromegaly Current Visit: Yes Status: Chronic Assessment and plan: Resume home medications/injections: Somavert SQ Daily. (3) Cholelithiasis Current Visit: Yes Status: Acute Assessment and plan: Laparoscopic cholecystectomy with intraoperative cholangiogram planned for today. Qualifiers: Cholelithiasis location: gallbladder Cholecystitis presence: without cholecystitis Biliary obstruction: with biliary obstruction Qualified Code(s ): K80.21 - Calculus of gallbladder without cholecystitis with obstruction (4) Dehydration Current Visit: Yes Status: Resolved Assessment and plan: On admission patient had dark urine and volume contraction. Patient was given IV fluid rehydration at 200 mils an hour over the past 2 days and has subsequently been making urine without difficulty that is "normal in color ". Her laboratory results now demonstrate slight overhydration. Will decrease fluids to 100 mils an hour. Continue to monitor. - Subjective Interval history: Patient was seen and examined. She reports no acute events overnight. She does express that she has had multiple bowel movements today and is urinating without difficulty and her urine color is back to normal. She denies any nausea or vomiting. She states that her pain is very well controlled at a 0 out of 10 today. Patient's partner is at bedside and is requesting to give her her medication. Expressed will discuss with pharmacy for clearance of injection for acromegaly status post transsphenoidectomy of pituitary tumor. Nurse was informed. Patient is in good spirits is conversant and pleasant. - Constitutional Vitals: Temp Pulse Resp BP Pulse Ox 97.5 F L 63 16 111/68 98 02/09/17 07:00 02/09/17 07:00 02/09/17 07:00 02/09/17 07:00 02/09/17 07:00 General appearance: Present: A&O X 3 (Dry mucosa) Exam: General: Cooperative, pleasant, no acute distress, alert and oriented 3, answers questions appropriately HEENT: Normocephalic, atraumatic, neck supple, trachea midline, Conjunctiva pink , sclera anicteric, EOMI, PERRL, oral mucosa moist, no orophargeal erythema or exudates Respiratory: No accessory muscle usage, clear to auscultation bilaterally, no wheezes/rhonchi/rales appreciated Cardiovascular: Regular rate and rhythm, S1 and S2 present, no murmurs/rubs/ gallops/clicks appreciated GI/abdominal: Nondistended, nontender, soft, normal bowel sounds, no peritoneal signs Extremities: No calf tenderness, noncyanotic, no pedal edema appreciated, warm, lower extremity pulses palpable and symmetrical Neurological: Alert and oriented 3, no facial droop, no focal deficits Skin: Dry, intact, normal color Internal Medicine: Result - Labs CBC & Chem 7: 02/09/17 04:59 02/09/17 04:59 Labs: Short CBC 02/09/17 Range/Units 04:59 WBC 4.4 (4.3-11.1) K/mcL Hgb 10.1 L (11.5-15.4) g/dL Hct 32.1 L (35.3-44.9) % Plt Count 174 (140-400) K/mcL Neutrophils # 2.5 (1.6-8.9) K/mcL BMP 02/09/17 04:59 Sodium 142 Potassium 3.9 Chloride 111 H Carbon Dioxide 25 BUN 10 Creatinine 0.71 Glucose 83 Calcium 8.6 Liver Function 02/09/17 02/09/17 Range/Units 04:59 04:59 Total Bilirubin 1.0 D 1.0 (0.2-1.2) mg/dL Direct Bilirubin 0.6 H (0.0-0.5) mg/dL AST 144 H 146 H (5-34) Units/L ALT 509 H 517 H (0-55) Units/L Alkaline Phosphatase 268 H 265 H (38-126) Units/L Albumin 3.1 L 3.1 L (3.5-5.0) g/dL - Impressions Impressions Abdomen MRI 02/08/17 07:22 IMPRESSION: 1. Mild intra and extrahepatic biliary dilatation. Common bile duct measures 8 mm, previously [address] dated 02/07/2017. No choledocholithiasis. Findings may be secondary to a recently passed stone. 2. Cholelithiasis without definite MRI evidence of acute cholecystitis. D/ / 02/08/2017 12:45:47 Ayah Blanco MD / vonda Interpreting Provider: Ayah Blanco MD Gallbladder Ultrasound 02/08/17 07:23 IMPRESSION: 1. Cholelithiasis without evidence for acute cholecystitis. 2. Biliary ductal dilatation. Please refer to subsequent MRCP. D/ / Sesar Hunter MD / Sesar Hunter MD Interpreting Provider: Sesar Hunter MD Consult Discharge Plan - Plan Referrals: Eron Jackson MD [Partnered Physician] - 02/23/17 10:00 am (Please bring the new patient packet you will receive in the mail. You will also need to bring your photo ID, insurance card and a list of all meds you are taking. If you have to cancel, please give a 24 hour notice. Thank you) <Renée Epps E - Last Filed: 02/09/17 15:47> Date of Encounter: 02/09/17 - Constitutional Vitals: Temp Pulse Resp BP Pulse Ox 98.4 F 73 17 116/64 96 02/09/17 14:53 02/09/17 14:53 02/09/17 14:53 02/09/17 14:53 02/09/17 14:53 Internal Medicine: Result - Labs CBC & Chem 7: 02/09/17 04:59 02/09/17 04:59 Labs: Short CBC 02/09/17 Range/Units 04:59 WBC 4.4 (4.3-11.1) K/mcL Hgb 10.1 L (11.5-15.4) g/dL Hct 32.1 L (35.3-44.9) % Plt Count 174 (140-400) K/mcL Neutrophils # 2.5 (1.6-8.9) K/mcL BMP 02/09/17 04:59 Sodium 142 Potassium 3.9 Chloride 111 H Carbon Dioxide 25 BUN 10 Creatinine 0.71 Glucose 83 Calcium 8.6 Liver Function 02/09/17 02/09/17 Range/Units 04:59 04:59 Total Bilirubin 1.0 D 1.0 (0.2-1.2) mg/dL Direct Bilirubin 0.6 H (0.0-0.5) mg/dL AST 144 H 146 H (5-34) Units/L ALT 509 H 517 H (0-55) Units/L Alkaline Phosphatase 268 H 265 H (38-126) Units/L Albumin 3.1 L 3.1 L (3.5-5.0) g/dL - Attending Attestation I examined this patient and reviewed laboratory, imaging and all diagnostic data. My medical decision-making was reviewed with Dr Ayah Garcia - Resident Physician. I agree with the documented findings, disposition and treatment plan as described above.
[2017-02-09] MEDS: Pantoprazole 40 MG VIAL IVP SCH (09:06)
[2017-02-09] MEDS: SOMAVERT SQ SCH (10:41)
--- NOTE | 2017-02-09 11:45 | Gastroenterology Consult Note ---
<Deniz Jones - Last Filed: 02/09/17 11:43> Date of Encounter: 02/09/17 Time of Encounter: 10:35 - Assessment and plan (1) Acute gallstone pancreatitis Current Visit: Yes Status: Acute Assessment and plan: Lipase on admission 2244 and this AM 49. Pt denies any nausea, vomiting, or abdominal pain. MRCP completed yesterday negative for stone, no indication for ERCP at this time. Pt to have gallbladder surgery per Dr. Pitts today, keep pt NPO. (2) Cholelithiasis Current Visit: Yes Status: Acute Assessment and plan: Pt to have gallbladder surgery per Dr. Pitts today. Keep NPO. Qualifiers: Cholelithiasis location: gallbladder Cholecystitis presence: without cholecystitis Biliary obstruction: with biliary obstruction Qualified Code(s ): K80.21 - Calculus of gallbladder without cholecystitis with obstruction - Time Spent With Patient Total time spent is greater than 50% in coordination of care (as documented) at patient's floor/unit and/or counseling patient: GI History of Present Illness - Data of Consult Patient: new to practice Consult date: 02/08/17 Requesting Physician: Renée Epps - Consult Narrative Reason for consult: ERCP History of present illness: Ms. Mcintosh is a 46 year old female with PMHx of acromegaly, pituitary tumor, and cholelithiasis presented to the ED with severe abdominal pain that started on Monday. The patient says that she does not drink alcohol regularly but drank 1 beer on Monday she does not remember the last time that she drank before that time. She was diagnosed with gallbladder stones 10 years ago but did not have a cholecystectomy. Described the pain as 10 out of 10 in intensity sharp, epigastric radiating to the back, accompanied by nausea and vomiting. CT scan of the abdomen shows biliary duct dilatation with distended gallbladder containing sludge and multiple stones. On admission lipase 2244, amylase 723, TB 2.2, AST 330, ALT 825, and alk phos 332. We have been consulted for possible ERCP. MRCP completed yesterday with CBD 8 mm, no choledocholithiasis. Today she denies abdominal pain, nausea, or vomiting. Procedures: None NSAIDs: None Anticoagulation: None Past Med Surg Social Fam HX - Past Medical History Medical history: other (Acromegaly, pituitary tumor, iron deficiency anemia and cholelithiasis) Psychiatric history: no psych history - Past Surgical History Surgical History: breast surgery (Left breast surgery due to benign tumor), hysterectomy, other (Left knee surgeries 2, T&A, hysterectomy, transnasal surgery for pituitary tumor, tubal ligation) - Social History Smoking Status: Never smoker Alcohol use: occasionally Drug use: none - Family History Mother Living Status: Still Living Hx Family Cardiac Disorders: No (HTN) Hx Family Cancer: No (ovarian) - Gastrointestinal Gastrointestinal: Present: as per HPI - Constitutional Constitutional: as per HPI - EENT Eyes: as per HPI Ears: Present: as per HPI Nose, mouth and throat: Present: as per HPI - Cardiovascular Cardiovascular ROS: Present: as per HPI - Respiratory Respiratory IM: Present: as per HPI - Genitourinary Genitourinary: Absent: change in color, Urinary frequency - Neurological ROS Neurological GI: Present: as per HPI - Hematologic/Lymphatic Hematologic/Lymphatic pediatric: Present: as per HPI - Musculoskeletal Musculoskeletal ROS GI: Present: as per HPI - Integumentary Integumentary GI: Present: as per HPI - Psychiatric ROS Psychiatric GI: Present: as per HPI - Endocrine Endocrine IM: Present: as per HPI - Constitutional Vitals: Temp Pulse Resp BP Pulse Ox 98.1 F 60 16 110/72 99 02/09/17 10:58 02/09/17 10:58 02/09/17 10:58 02/09/17 10:58 02/09/17 10:58 General appearance: Present: cooperative, A&O X 3, no acute distress, answers questions appropriately - Head Head exam: Present: atraumatic, normocephalic - Eye Eye exam: Present: normal appearance, sclera anicteric - ENT ENT exam: Present: mucous membranes dry - Neck Neck exam general surgery: Present: normal inspection, trachea midline - Respiratory Respiratory exam: Present: CTAB. Absent: rales, rhonchi - Cardiovascular Cardiovascular exam: Present: RRR, +S1, +S2 - GI/Abdominal GI/Abdominal exam: Present: soft, no peritoneal signs. Absent: distended, firm , guarding, tenderness - Rectal Rectal exam: Present: deferred - Extremities Exam Extremities exam: Present: warm - Neurological Exam Neurological exam: Present: no focal deficits - Psychiatric Psychiatric exam: Present: normal affect, normal mood - Skin Skin exam: Present: dry, intact, normal color, warm Results - Labs CBC & Chem 7: 02/09/17 04:59 02/09/17 04:59 Labs: Last Result Calcium 8.6 mg/dL (8.6-10.8) 02/09/17 04:59 Troponin I 0.00 ng/mL (0-0.03) 02/07/17 21:05 C-Reactive Protein 4 mg/L (Less than 5) 02/07/17 21:05 Triglycerides 30 mg/dL (< 150) 02/08/17 04:55 Entire Visit Hgb 10.1 g/dL (11.5-15.4) L 02/09/17 04:59 Hct 32.1 % (35.3-44.9) L 02/09/17 04:59 Total Bilirubin 1.0 mg/dL (0.2-1.2) 02/09/17 04:59 AST 146 Units/L (5-34) H 02/09/17 04:59 ALT 517 Units/L (0-55) H 02/09/17 04:59 Amylase 102 Units/L (25-125) 02/09/17 04:59 Lipase 49 Units/L (8-78) 02/09/17 04:59 - Impressions Impressions Abdomen MRI 02/08/17 07:22 IMPRESSION: 1. Mild intra and extrahepatic biliary dilatation. Common bile duct measures 8 mm, previously [address] dated 02/07/2017. No choledocholithiasis. Findings may be secondary to a recently passed stone. 2. Cholelithiasis without definite MRI evidence of acute cholecystitis. D/ / 02/08/2017 12:45:47 Ayah Blanco MD / vonda Interpreting Provider: Ayah Blanco MD Gallbladder Ultrasound 02/08/17 07:23 IMPRESSION: 1. Cholelithiasis without evidence for acute cholecystitis. 2. Biliary ductal dilatation. Please refer to subsequent MRCP. D/ / Sesar Hunter MD / Sesar Hunter MD Interpreting Provider: Sesar Hunter MD Consult Discharge Plan - Plan Referrals: Eron Jackson MD [Partnered Physician] - 02/23/17 10:00 am (Please bring the new patient packet you will receive in the mail. You will also need to bring your photo ID, insurance card and a list of all meds you are taking. If you have to cancel, please give a 24 hour notice. Thank you) <Amadeo Workman - Last Filed: 02/09/17 14:06> Date of Encounter: 02/08/17 Time of Encounter: 18:00 - Time Spent With Patient Total time spent is greater than 50% in coordination of care (as documented) at patient's floor/unit and/or counseling patient: GI History of Present Illness - Data of Consult Requesting Physician: Renée Epps - Consult Narrative History of present illness: Ms. Mcintosh is a 46 year old female - Constitutional Vitals: Temp Pulse Resp BP Pulse Ox 98.1 F 60 16 110/72 99 02/09/17 10:58 02/09/17 10:58 02/09/17 10:58 02/09/17 10:58 02/09/17 10:58 Results - Labs CBC & Chem 7: 02/09/17 04:59 02/09/17 04:59 Labs: Last Result Calcium 8.6 mg/dL (8.6-10.8) 02/09/17 04:59 Troponin I 0.00 ng/mL (0-0.03) 02/07/17 21:05 C-Reactive Protein 4 mg/L (Less than 5) 02/07/17 21:05 Triglycerides 30 mg/dL (< 150) 02/08/17 04:55 Entire Visit Hgb 10.1 g/dL (11.5-15.4) L 02/09/17 04:59 Hct 32.1 % (35.3-44.9) L 02/09/17 04:59 Total Bilirubin 1.0 mg/dL (0.2-1.2) 02/09/17 04:59 AST 146 Units/L (5-34) H 02/09/17 04:59 ALT 517 Units/L (0-55) H 02/09/17 04:59 Amylase 102 Units/L (25-125) 02/09/17 04:59 Lipase 49 Units/L (8-78) 02/09/17 04:59 - Attending Attestation I examined this patient and my medical decision-making was reviewed with the BRUSH MACHINE SETTER/PA/Advanced Practice Nurse/Resident Physician. I agree with the documented findings, disposition and treatment plan as described except to the extent set forth below.
--- NOTE | 2017-02-09 12:13 | General Surgery Progress Note ---
Date of Encounter: 02/09/17 Time of Encounter: 12:12 - Assessment and Plan (1) Acute gallstone pancreatitis Current Visit: Yes Status: Acute I explained to the patient that since her amylase and lipase values normalized and her bilirubin is normal and she has no pain symptoms she does not require an ERCP. I do think it would be appropriate to go ahead and proceed with a laparoscopic cholecystectomy with cholangiogram. Risks and benefits have been discussed with the patient and she agrees to the above plan. Subjective Patient reports: no new complaints, other (feels better. No pain.) Objective Vital Signs - Last 8 Hours Temp Pulse Resp BP Pulse Ox 02/09/17 10:58 98.1 F 60 16 110/72 99 02/09/17 07:00 97.5 F L 63 16 111/68 98 02/09/17 04:49 97.5 F L 51 14 108/70 99 Intake and Output 02/08/17 02/09/17 02/09/17 23:59 07:59 15:59 Intake Total 1000 / 1000 2000 / 2000 0 / 0 Output Total 1000 / 1000 2250 / 2250 900 / 900 Balance 0 / 0 -250 / -250 -900 / -900 Intake: IV Fluids 1000 / 1000 2000 / 2000 0.9 % Sodium Chloride 1, 1000 / 1000 2000 / 2000 000 ML @ 200 mls/hr IVC . Q5H [facility] Rx#:[id number] Oral 0 / 0 0 / 0 Output: Urine 1000 / 1000 2250 / 2250 900 / 900 Other: Meal NPO Percent of Meal Consumed 0% Weight 77.201 kg Blood Glucose* 82 82 84 Patient Weight 02/09/17 23:59 Weight 77.201 kg - General physical appearance well developed, well nourished, no distress - Abdomen Abdomen: Present: non tender - Labs 02/09/17 04:59 02/09/17 04:59 Diabetes panel 02/09/17 02/09/17 Range/Units 04:59 04:59 Sodium 142 (136-145) mEq/L Potassium 3.9 (3.5-4.5) mEq/L Chloride 111 H (98-109) mEq/L Carbon Dioxide 25 (19-29) mEq/L BUN 10 (7-20) mg/dL Creatinine 0.71 (0.57-1.11) mg/dL Glucose 83 (70-99) mg/dL Calcium 8.6 (8.6-10.8) mg/dL AST 144 H 146 H (5-34) Units/L ALT 509 H 517 H (0-55) Units/L Alkaline Phosphatase 268 H 265 H (38-126) Units/L Albumin 3.1 L 3.1 L (3.5-5.0) g/dL Calcium panel 02/09/17 02/09/17 Range/Units 04:59 04:59 Calcium 8.6 (8.6-10.8) mg/dL Albumin 3.1 L 3.1 L (3.5-5.0) g/dL Pituitary panel 02/09/17 Range/Units 04:59 Sodium 142 (136-145) mEq/L Potassium 3.9 (3.5-4.5) mEq/L Chloride 111 H (98-109) mEq/L Carbon Dioxide 25 (19-29) mEq/L BUN 10 (7-20) mg/dL Creatinine 0.71 (0.57-1.11) mg/dL Glucose 83 (70-99) mg/dL Calcium 8.6 (8.6-10.8) mg/dL Adrenal panel 02/09/17 02/09/17 Range/Units 04:59 04:59 Sodium 142 (136-145) mEq/L Potassium 3.9 (3.5-4.5) mEq/L Chloride 111 H (98-109) mEq/L Carbon Dioxide 25 (19-29) mEq/L BUN 10 (7-20) mg/dL Creatinine 0.71 (0.57-1.11) mg/dL Glucose 83 (70-99) mg/dL Calcium 8.6 (8.6-10.8) mg/dL Total Bilirubin 1.0 D 1.0 (0.2-1.2) mg/dL AST 144 H 146 H (5-34) Units/L ALT 509 H 517 H (0-55) Units/L Alkaline Phosphatase 268 H 265 H (38-126) Units/L Albumin 3.1 L 3.1 L (3.5-5.0) g/dL Consult Discharge Plan - Plan Referrals: Eron Jackson MD [Partnered Physician] - 02/23/17 10:00 am (Please bring the new patient packet you will receive in the mail. You will also need to bring your photo ID, insurance card and a list of all meds you are taking. If you have to cancel, please give a 24 hour notice. Thank you)
[2017-02-09] MEDS ORDERED: 0.9 % Sodium Chloride 1,000 ML IVC SCH (13:21)
--- NOTE | 2017-02-09 16:29 | Anesthesia Evaluation PreOp ---
Date of Encounter: 02/09/17 Time of Encounter: 18:15 - Past History Planned Operation: Lap. Yanna Cardiac History: HTN Pulmonary History: Denies Any Significant HX [facility]P [employer]EARCH [employer] STRATEGIC ANALYSIS History: Denies Any Significant HX Other Medical History: Other (Acromegall) Anesthesia History: Past Anesthesia (Breast sx, JOVAN< left Knee x 2, Transnasal hypophysis tumor) : No (JOVAN) Alcohol Use: occasionally Drug use: none Medications and Allergies Pegvisomant [Somavert] 25 mg SQ DAILY 05/15/15 [History] Allergies No Known Allergies Allergy (Verified 02/07/17 19:54) - Meds/Allergy Pre-op Review Medications Reviewed: Yes Allergies Reviewed: Yes Beta Blockers on Current Med List: No Anesthesia Results - Labs 02/09/17 04:59 02/09/17 04:59 - Imaging EKG: image reviewed (SR, swetha old ant. [place]) Anesthesia Exam O2 Sat Weight 77.201 kg O2 Sat by Pulse Oximetry 96 O2 Sat by Pulse Oximetry 99 O2 Sat by Pulse Oximetry 98 O2 Sat by Pulse Oximetry 99 O2 Sat by Pulse Oximetry 98 O2 Sat by Pulse Oximetry 94 Vital Signs Temp Pulse Resp BP Pulse Ox 98.1 F 79 18 151/79 99 02/07/17 19:50 02/07/17 19:50 02/07/17 19:50 02/07/17 19:50 02/07/17 19:50 Vital Signs/O2 Sat, Most Current Temp Pulse Resp BP Pulse Ox 98.4 F 73 17 116/64 96 02/09/17 14:53 02/09/17 14:53 02/09/17 14:53 02/09/17 14:53 02/09/17 14:53 Height: 5'6'' Weight: 170# NPO (# of Hours): > 8 hrs Pain Scale: 0 Pain Scale Used: Numeric (1 - 10) - HEENT Pupil (Motor): Pupils equal, EOMI Mallampati: II Teeth: Normal Oral Opening: Greater than 3 - SVP RESEARCH AND STRATEGIC ANALYSIS LOC: Oriented SVP [employer] STRATEGIC ANALYSIS Motor: Normal RUE, Normal LUE, Normal RLE, Normal LLE, Normal Face SVP [employer] STRATEGIC ANALYSIS Sensory: Normal: RUE, LUE, RLE, LLE, Face - Cardiac Rhythm: Regular Murmur: None JVD: No Carotid Bruit: No - Pulmonary Breath Sounds: bilateral Clear Respiratory Effort: Symmetrical Anesthesia Assess/Plan ASA Score: 2 Modified Stebbins Scale for Level of Consciousness: Cooperative, oriented, and tranquil Anesthetic Plan: General Autologous Blood: Yes Monitoring Plan: Standard Monitors Recovery Plan: PACU
[2017-02-09] MEDS ORDERED: *HR* Rocuronium Bromide 50 MG/5 ML VIAL ONE ×2 (18:30→19:27)
[2017-02-09] MEDS ORDERED: Ondansetron 4 MG/2 ML VIAL ONE (18:30)
[2017-02-09] MEDS ORDERED: Dexamethasone 4 MG/ML VIAL ONE (18:30)
[2017-02-09] MEDS ORDERED: Neostigmine Methylsulfate 3 MG/3 ML SYRINGE ONE ×3 (18:30→19:54)
[2017-02-09] MEDS ORDERED: *HR* FentaNYL (PF) 100 MCG/2 ML VIAL ONE (18:30)
[2017-02-09] MEDS ORDERED: Lidocaine -MPF 2% 2 ML VIAL ONE (18:30)
[2017-02-09] MEDS ORDERED: *HR* Propofol 200 MG/20 ML VIAL IVP ONE (18:31)
[2017-02-09] MEDS ORDERED: *HR* Midazolam HCl 2 MG/2 ML VIAL ONE (18:31)
[2017-02-09] MEDS ORDERED: Lidocaine -MPF 4% 5 ML AMPUL ONE (18:36)
[2017-02-09] MEDS ORDERED: *HR* Labetalol 20 MG/4 ML SYRINGE IVP PRN (18:48)
[2017-02-09] MEDS ORDERED: *HR* Promethazine 25 MG/ML VIAL IVP PRN (18:48)
[2017-02-09] MEDS ORDERED: *HR* HYDROmorphone (PF) 1 MG/ML SYRINGE IVP PRN ×2 (18:48→21:29)
[2017-02-09] MEDS ORDERED: Ondansetron 4 MG/2 ML VIAL IVP ONE (18:48)
[2017-02-09] MEDS ORDERED: Ringers Solution, Lactated 1,000 ML IVC SCH (19:00)
[2017-02-09] MEDS ORDERED: Acetaminophen IV 1,000 MG/100 ML INFUS..BTL ONE (19:21)
[2017-02-09] MEDS ORDERED: Ketorolac 30 MG/ML VIAL ONE (19:43)
--- NOTE | 2017-02-09 19:47 | Operative Note ---
Date of procedure: 02/09/17 Pre-op diagnosis: Gallstone pancreatitis Post-op diagnosis: same Procedure: Laparoscopic cholecystectomy with intraoperative cholangiogram Anesthesia: LISET Surgeon: Calixto Pitts Pt Escort: Kristy Hunt Estimated blood loss (cc): 20 Specimen: gallbladder and contents Condition: stable Disposition: PACU Procedure in Detail: Date of surgery; 02/09/17 After properly identifying the patient, the patient was brought to the operating room and placed in the supine position. After proper IV sedation was achieved followed by general endotracheal intubation, the patient's abdomen was prepped and draped in a normal sterile fashion. A timeout was performed noting the patient's name and type of procedure to be performed. A supraumbilical incision with an 11 blade scalpel was made down to the level of the rectus fascia. The rectus fascia was incised and the abdomen was entered and a 12 mm port was placed through the incision and the abdomen was insufflated with carbon dioxide. A laparoscopic camera was placed the port which showed no injury to the intra-abdominal organs upon entry. A subxiphoid 5 mm port and a right subcostal margin 5 mm port were then placed under direct camera visualization. The patient was placed in a reverse Trendelenburg position and the gallbladder was examined and retracted superiorly/anteriorly. The peritoneal covering overlying the cystic duct and artery was bluntly dissected free with a [place] dissector. Once the cystic duct was isolated a laparoscopic clip was placed on the distal end of the duct near the infundibulum. The nontraumatic grasper was exchanged for a Min grasper and a cholangiogram catheter was introduced to the side port of the device. Laparoscopic scissors were used to make an incision just proximal to the clip on the cystic duct and the catheter was then placed through this opening and secured with a clip. Intraoperative cholangiogram demonstrated a dilated common bile duct with flow into the small bowel and no filling defect. There was retrograde filling of the hepatic radicals with no evidence of a filling defect. The cholangiocatheter was then removed and the cystic duct was formally clipped with laparoscopic clips and incised with laparoscopic scissors. The cystic artery was likewise isolated, clipped, and incised with scissors. The gallbladder was dissected off of the gallbladder fossa with Bovie cauterization. Bovie cauterization was also used to maintain hemostasis during the dissection. During the dissection the gallbladder was iatrogenically entered with spillage of bile which was immediately suctioned. Once the gallbladder was dissected free, it was removed from the abdomen via an Endobag. Reinspection of the right upper quadrant demonstrated maintenance of hemostasis and the right upper quadrant was copiously irrigated with normal saline solution until the effluent was clear. All ports were then removed from the abdomen after the abdomen was desufflated. The rectus fascia for the supraumbilical incision was reapproximated with a [id number] 0 Vicryl suture. The subcutaneous tissue was reapproximated with interrupted 3-0 Vicryl sutures. The epidermal and dermal layers for the remaining incisions were reapproximated with 4-0 Monocryl sutures. Needle, sponge, and instrument counts were correct 2 and the incisions were covered with Steri-Strips and Band-Aids. The patient was aroused from IV sedation, extubated in the operating room without complication, and transported to the recovery room in stable condition.
[2017-02-09] MEDS ORDERED: *HR* Morphine 10 MG/ML VIAL ONE (20:01)
--- NOTE | 2017-02-09 20:26 | Anesthesia Evaluation Post Op ---
Date of Encounter: 02/09/17 Time of Encounter: 20:25 - Vital Signs Vital Signs: Vital Signs/O2 Sat/Glucose, Most Current Temp Pulse Resp BP Pulse Ox 02/09/17 20:19 47 16 137/74 100 02/09/17 20:10 97.0 F L 48 18 134/74 100 - Lungs Lungs: Clear Ascult./Percussion - Airway Airway: Non-obstructed - Cardiovascular Regular Rate - Mental Status Mental Status: Alert & Oriented, Answers Appropriately - Pain Pain Scale: 0 - Nausea Vomiting Nausea Vomiting: Not Present - Hydration Hydration: NPO - Discharge PostOp Status: Transfer Patient to floor
[2017-02-09] MEDS ORDERED: *HR* Morphine 2 MG/ML SYRINGE IVP PRN (20:35)
[2017-02-09] MEDS ORDERED: *HR* Morphine 2 MG/ML SYRINGE ONE (20:37)
[2017-02-09] MEDS ORDERED: Naloxone 0.4 MG/ML INJ IVP PRN (21:29)
[2017-02-09] MEDS ORDERED: Acetaminophen 325 MG TABLET PO PRN (21:29)
[2017-02-09] MEDS ORDERED: Dextrose Gel 15 GM PO PRN ×2 (21:29)
[2017-02-09] MEDS ORDERED: Ondansetron 4 MG/2 ML VIAL IVP PRN (21:29)
[2017-02-09] MEDS ORDERED: *HR* Dextrose 50 % in Water (Syg) 50 ML SYRINGE IVP PRN (21:29)
[2017-02-09] MEDS ORDERED: D5% in Water 1,000 ML IVC PRN (21:29)
[2017-02-09] MEDS: *HR* OxyCODONE/APAP 10/325 TABLET PO PRN (22:09)
[2017-02-10] MEDS: Insulin LISPRO 300 UNITS/3 ML VIAL SQ SCH ×2 (01:56→08:33)
[2017-02-10] MEDS: *HR* OxyCODONE/APAP 10/325 TABLET PO PRN (05:47)
[2017-02-10] MEDS ORDERED: *HR* Heparin 5,000 UNIT/ML VIAL SQ SCH (06:00)
[2017-02-10 06:59] VITALS: BP 110/69
[2017-02-10 08:34] LABS: Basophils % 0.1 %; Eosinophils % 0.3 %; Hematocrit 33.9 % (35.3-44.9); Hemoglobin 11.1 g/dL (11.5-15.4); Immature Granulocytes % 0.1 % (0-4); Lymphocytes # 1.2 K/mcL (0.6-4.6); Lymphocytes % 16.7 %; Mean Corpuscular HGB Conc 32.7 g/dL (31.6-35.5); Mean Corpuscular Volume 88.5 fL (83.0-100.0); Mean Platelet Volume 11.7 fL (9.4-12.4); Monocytes # 0.6 K/mcL (0.0-1.3); Monocytes % 8.1 %; Neutrophils # 5.2 K/mcL (1.6-8.9); Platelet Count 187 K/mcL (140-400); Red Blood Count 3.83 M/mcL (3.82-4.97); Red Cell Distribution Width 14.6 % (11.5-14.5); Segmented Neutrophils % 74.7 %
[2017-02-10 08:50] LABS: Alanine Aminotransferase 447 Units/L (0-55); Albumin 3.3 g/dL (3.5-5.0); Albumin/Globulin Ratio 1.1 (1.1-2.2); Alkaline Phosphatase 273 Units/L (38-126); Aspartate Amino Transferase 134 Units/L (5-34); BUN/Creatinine Ratio 15 (6-26); Bilirubin,Direct 0.5 mg/dL (0.0-0.5); Bilirubin,Indirect 0.4 mg/dL (0.0-1.2); Bilirubin,Total 0.9 mg/dL (0.2-1.2); Blood Urea Nitrogen 11 mg/dL (7-20); Calcium 9.3 mg/dL (8.6-10.8); Carbon Dioxide 29 mEq/L (19-29); Chloride 106 mEq/L (98-109); Globulin 3.1 g/dL (2.4-3.5); Glucose 91 mg/dL (70-99); Lipase 21 Units/L (8-78); Osmolality,Calculated 291 (280-300); Potassium 4.5 mEq/L (3.5-4.5); Sodium 141 mEq/L (136-145); Total Protein 6.4 g/dL (6.0-8.3); eGFR For African Americans > 60 (> 60); eGFR For Non-African Americans > 60 (> 60)
[2017-02-10] MEDS ORDERED: SOMAVERT SQ SCH (09:00)
[2017-02-10] MEDS ORDERED: Pantoprazole 40 MG VIAL IVP SCH (09:00)
--- NOTE | 2017-02-10 09:13 | Discharge Summary ---
Date of Encounter: 02/10/17 Time of Encounter: 09:11 - Discharge Diagnosis (1) Acute gallstone pancreatitis Priority: Primary Status: Acute (2) Cholelithiasis Priority: Primary Status: Acute Qualifiers: Cholelithiasis location: gallbladder Cholecystitis presence: without cholecystitis Biliary obstruction: with biliary obstruction Qualified Code(s ): K80.21 - Calculus of gallbladder without cholecystitis with obstruction (3) Dehydration Priority: Primary Status: Resolved (4) Acromegaly Priority: Secondary Status: Chronic - Discharge Medications Prescriptions: OxyCODONE/APAP 10/325 [Percocet 10/325 MG] 1 each PO Q6HR PRN #20 tablet PRN Reason: Moderate Pain Home Medications: Pegvisomant [Somavert] 25 mg SQ DAILY 05/15/15 [History] OxyCODONE/APAP 10/325 [Percocet 10/325 MG] 1 each PO Q6HR PRN #20 tablet [Rx] Allergies/Adverse Reactions: Allergies No Known Allergies Allergy (Verified 02/07/17 19:54) Procedures/tests Complete & Pending: Procedures Performed prior 72 hours Category Date Time Status US gall bladder [US] Routine Exams 02/08/17 07:23 Completed MRCP [MR abdomen wo con] [MR] Routine MRI 02/08/17 07:22 Completed Date of admission: 02/08/17 03:02 Primary care physician: PCP NO Consults: 02/08/17 03:14 Consult to Surgery [CONS] Routine Consulting Provider: Calixto Pitts Reason for Consult: gallstones / pancreatitis, called by ER Call Completed: Yes - Patient Status Disposition: Home, Self-Care Condition: Good Functional capacity at discharge: independent ambulation Overall status at discharge: patient is progressing back to baseline - Discharge Instructions Instructions: Oxycodone/Acetaminophen (By mouth), Narcotic-Analgesic/ Acetaminophen (By mouth), Pancreatitis (DC) Follow Up With: Eron Jackson MD [Partnered Physician] - 02/23/17 10:00 am (Please bring the new patient packet you will receive in the mail. You will also need to bring your photo ID, insurance card and a list of all meds you are taking. If you have to cancel, please give a 24 hour notice. Thank you) Additional Instructions: pls provide s/p lap javier instructions. take blood test next Monday. follow up with primary care doctor as scheduled. - Diet and Activity Activity: resume usual activities as tolerated, other (no heavy activitities for a month) Diet: low fat, low cholesterol Interval History: she is tolerating her diet well. no nausea. no vomiting. mild abdominal pain, expected after surgery. Hospital course: Ms. Mcintosh is a 46 year old female with past medical history of acromegaly who presents with severe abdominal pain. On admission 02/07/17, laboratory results demonstrated elevated total bilirubin at 2.2, elevated direct bilirubin at 1.7, AST 330, ALT 825, alkaline phosphatase 332, amylase 723, lipase 2244. CT abdomen showed colelithiasis. She was diagnosed with acute gallstone pancreatitis and was started on NPO, IV fluids and pain control with clinical improvement. Her lipase normalized. Common bile duct initially [address] decrease to 8 mm on MRI suggestive of passage of stone. Patient underwent cholecystectomy without complications. Her bilirrubin normalized and rest of LFTs were trending down PLAN: low fat diet. f/u in the surgery clinic. - Time Spent with Patient Total time spent providing and/or coordinating discharge services: - Constitutional Vitals: Temp Pulse Resp BP Pulse Ox 97.9 F 60 16 110/69 97 02/10/17 06:58 02/10/17 06:58 02/10/17 06:58 02/10/17 06:58 02/10/17 06:58 General appearance: Present: cooperative, A&O X 3 (Dry mucosa), pleasant, no acute distress, answers questions appropriately - Eye Eye exam: Present: PERRL, sclera anicteric - Neck Neck exam general surgery: Present: supple, trachea midline. Absent: lymphadenopathy - Respiratory Respiratory exam: Present: CTAB - Cardiovascular Cardiovascular exam: Present: RRR - GI/Abdominal GI/Abdominal exam: Present: distended (mild abdominal distension, expected after lap javier), normal bowel sounds, soft, tenderness (mild diffuse tenderness , expected post surgery) - Extremities Exam Extremities exam: Absent: pedal edema - Back Exam Back exam: Absent: CVA tenderness (L), CVA tenderness (R) - Neurological Exam Neurological exam: Present: alert, oriented X3, no focal deficits, strengths equal and symetr throughout. Absent: facial droop, speech deficit - Skin Skin exam: Absent: rash - VTE Documentation of Mechanical Device: Intermittent pneumatic compression device
== END 2017-02-10 10:53 | disposition home or self-care (01) | DRG 418 ==
LOC: 3ANU 19:49 → EMEROO 19:49 → 3ANU 02-08 00:45 → SUATTDRO 02-08 03:02
PROVIDERS: ADMIT Internal Medicine; ATTEND Internal Medicine

== ENCOUNTER 2019-04-24 18:50 | Inpatient (IN) ==
--- NOTE | 2019-04-24 19:07 | Emergency Department Note ---
Disposition Clinical Impression: Facial swelling, Swelling of right ear Cellulitis Qualifiers: Site of cellulitis: face Qualified Code(s): L03.211 - Cellulitis of face Sepsis Qualifiers: Sepsis type: sepsis due to unspecified organism Sepsis acute organ dysfunction status: unspecified Qualified Code(s): A41.9 - Sepsis, unspecified organism Disposition: Admitted As Inpatient Referrals: Eron Jackson MD [Primary Care Provider] - Forms: ED Satisfaction Letter, Work/School Release Time of Disposition: 21:37 General Adult HPI - General Chief complaint: ED General Medical Stated complaint: facial/neck swelling Time Seen by Provider: 04/24/19 19:04 Source: patient Mode of arrival: private vehicle Limitations: no limitations Nursing Notes Reviewed: Yes Vital Signs Reviewed: Yes - History of Present Illness HPI Narrative: Patient is a 48-year-old female with past medical history who presents with right-sided facial swelling onset yesterday. She recently was seen at [facility] on 04/19 for sore throat and diagnosed with viral pharyngitis, she was prescribed oral prednisone. She took her last dose of prednisone today. She states that her throat soreness has improved. She complains of right sided facial swelling involving her right ear since yesterday. Patient states that she has associated pain which she described as tightness and rates as a 9 out of 10. Pain is relieved somewhat with Tylenol, but this right sided facial swelling has been worsening. She denies feeling like her throat is closing, shortness of breath, hoarse voice, denies ear pain, drainage from the ear, or changes in hearing. Patient admits to subjective fevers and chills at home. She denies chest pain, shortness of breath, abdominal pain, diarrhea, constipation, dysuria, urinary frequency. Denies history of IV drug use, history of oral teeth abscesses Pain Scale: 9 - Related Data Home Medications Medication Instructions Recorded Confirmed Pegvisomant [Somavert] 25 mg SQ DAILY 05/15/15 08/06/17 Cabergoline 0.25 mg PO 04/19/19 Previous Rx's Medication Instructions Recorded predniSONE [PredniSONE] 60 mg PO DAILY #15 tablet 04/19/19 Allergies Allergy/AdvReac Type Severity Reaction Status Date / Time No Known Allergies Allergy Verified 08/06/17 11:31 All systems ED: reviewed and negative except as stated. Review of Systems: As Per HPI Constitutional: Reports: fever, chills. Denies: weakness ENT ED: Reports: ear pain, other (Swelling and erythema to the right external ear with indurated mass to right cheek). Denies: dental pain, hearing loss, congestion, dysphagia Cardiovascular: Denies: chest pain, palpitations Respiratory: Denies: cough, dyspnea, wheezes Gastrointestinal: Denies: abdominal pain, nausea, vomiting, diarrhea, constipation Genitourinary: Denies: urgency, dysuria, frequency Neurological: Denies: headache, weakness, numbness Past Medical History - Past Medical History Attestation: Yes The following information was validated with the patient. 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 Indurated swelling and erythema of the right cheek and extending into the right auricle. Right and left tympanic membrane are normal without erythema or bulging, no right ear drainage, no tenderness to palpation of the right mastoid process however there is tenderness to palpation overlying the right ear, inferior portion of the ear and the right cheek. No tenderness or swelling below the tongue. No tenderness or swelling of the submandibular gland) - Neck Neck exam: Present: full ROM, trachea midline, other (No cervical adenopathy, pain to palpation). Absent: tenderness, meningismus - Chest Chest inspection: Present: normal inspection, symmetric chest wall rise - Respiratory Respiratory exam: Present: normal lung sounds bilaterally. Absent: respiratory distress, wheezes - Cardiovascular Cardiovascular exam: Present: regular rate, normal rhythm, normal heart sounds - Abdominal Exam Abdominal exam: Present: soft, Non-Tender. Absent: distention - Extremities Exam Extremities exam: Present: normal capillary refill. Absent: pedal edema, calf tenderness - Neurological Exam Neurological exam: Present: alert, oriented X3, CN II-XII intact - Psychiatric Psychiatric exam: Present: normal affect, normal mood - Skin Skin exam: Present: warm, dry. Absent: diaphoresis, pallor Course Vital Signs Temperature 103 F H 04/24/19 18:53 Pulse Rate 100 04/24/19 18:53 Respiratory Rate 18 04/24/19 18:53 Blood Pressure 165/93 04/24/19 18:53 O2 Sat by Pulse Oximetry 99 04/24/19 18:53 Temperature 103 F H 04/24/19 18:53 Pulse Rate 100 04/24/19 20:37 Respiratory Rate 21 04/24/19 19:12 Blood Pressure 124/71 04/24/19 20:37 O2 Sat by Pulse Oximetry 97 04/24/19 20:37 Oxygen Delivery Oxygen Delivery Room Air Medical Decision Making - [facility] Narrative Medical decision making narrative: Patient has significant swelling, induration, erythema concerning for cellulitis and soft tissue infection involving the right cheek and right ear. She is febrile and so we will give Tylenol. Mildly tachycardic. We will give her a liter of IV fluids, obtain CBC, BMP, lactate, blood cultures. We will empirically start IV Zosyn and vancomycin to cover strep, staph, Pseudomonas for sepsis likely secondary to cellulitis. We will obtain CT facial bones with IV contrast. She may need ENT consultation pending results of the CT. No evidence of otitis media or otitis externa 21:05 CT imaging results reviewed. There is cellulitis seen around the right ear region and right cheek with no evidence for abscess. Glands appear normal. ENT paged for inpatient consult. We will limit hospitalist for sepsis secondary to cellulitis and pain control. 21:[address] Lau, ENT. He states he agrees with admission and current management. No further recommendations at this time. Admit to hospitalist and consult as needed. Hospitalist has been paged for admission. 21:[address] Hooks, hospitalist, who accepts admission. - Medical Records Medical records reviewed: Yes I reviewed the patient's medical records. - Lab Data Lab results reviewed: Yes I reviewed the patient's lab results. Result diagrams: 04/24/19 19:15 04/24/19 19:15 Lab Results 04/24/19 04/24/19 04/24/19 Range/Units 19:15 19:15 19:15 WBC 11.5 H (4.3-11.1) K/mcL RBC 3.92 (3.82-4.97) M/mcL Hgb 11.3 L (11.5-15.4) g/dL Hct 34.7 L (35.3-44.9) % MCV 88.5 (83.0-100.0) fL MCH 28.8 (28.0-33.3) pg MCHC 32.6 (31.6-35.5) g/dL RDW 14.0 (11.5-14.5) % Plt Count 241 (140-400) K/mcL MPV 11.0 (9.4-12.4) fL Immature Gran % 0.8 (0-4) % Seg Neutrophils % 80.5 % Lymphocytes % 9.8 % Monocytes % 8.6 % Eosinophils % 0.1 % Basophils % 0.2 % Neutrophils # 9.3 H (1.6-8.9) K/mcL Lymphocytes # 1.1 (0.6-4.6) K/mcL Monocytes # 1.0 (0.0-1.3) K/mcL Eosinophils # 0.0 (0.0-0.6) K/mcL Basophils # 0.0 (0.0-0.2) K/mcL Sodium 138 (136-145) mEq/L Potassium 3.3 L (3.5-5.1) mEq/L Chloride 103 (98-107) mEq/L Carbon Dioxide 25 (23-29) mEq/L BUN 18 (6-20) mg/dL Creatinine 0.90 (0.60-1.20) mg/dL Est GFR ( Amer) > 60 (> 60) Est GFR (Non-Af Amer) > 60 (> 60) BUN/Creatinine Ratio 20 (6-26) Glucose 171 H (70-105) mg/dL Calculated Osmolality 292 (280-300) Lactic Acid 2.8 H (0.5-2.2) mmol/L Calcium 9.1 (8.6-10.3) mg/dL - Radiology Data Radiology results reviewed: Yes I reviewed the patient's radiology results. Face CT 04/24/19 19:14 IMPRESSION: Cellulitis seen around the right year region on the right with no evidence for abscess. D/ / Tavo Farah MD / Tavo Farah MD Interpreting Provider: Tavo Farah MD
[2019-04-24] MEDS ORDERED: 0.9 % Sodium Chloride 1,000 ML IVC ONE ×2 (19:13→19:58)
[2019-04-24] MEDS ORDERED: Isovue-370 500 ML BOTTLE IVP ONE (19:14)
[2019-04-24] MEDS ORDERED: Piperacillin/Tazobactam 3.375 GM in 0.9 % Sodium Chloride Mini Bag 100 ML IVPB ONE (19:16)
[2019-04-24] MEDS ORDERED: *HR* HYDROmorphone (PF) 1 MG/ML SYRINGE IVP ONE (19:22)
[2019-04-24 19:37] LABS: Basophils % 0.2 %; Eosinophils % 0.1 %; Hematocrit 34.7 % (35.3-44.9); Hemoglobin 11.3 g/dL (11.5-15.4); Immature Granulocytes % 0.8 % (0-4); Lymphocytes # 1.1 K/mcL (0.6-4.6); Lymphocytes % 9.8 %; Mean Corpuscular HGB Conc 32.6 g/dL (31.6-35.5); Mean Corpuscular Hemoglobin 28.8 pg (28.0-33.3); Mean Corpuscular Volume 88.5 fL (83.0-100.0); Monocytes % 8.6 %; Neutrophils # 9.3 K/mcL (1.6-8.9); Platelet Count 241 K/mcL (140-400); Red Blood Count 3.92 M/mcL (3.82-4.97); Segmented Neutrophils % 80.5 %; White Blood Count 11.5 K/mcL (4.3-11.1)
--- NOTE | 2019-04-24 19:46 | Emergency Department Note ---
Disposition Clinical Impression: Facial swelling, Swelling of right ear Cellulitis Qualifiers: Site of cellulitis: face Qualified Code(s): L03.211 - Cellulitis of face Sepsis Qualifiers: Sepsis type: sepsis due to unspecified organism Sepsis acute organ dysfunction status: unspecified Qualified Code(s): A41.9 - Sepsis, unspecified organism Disposition: Admitted As Inpatient Condition: Fair Time of Disposition: 21:37 General Adult HPI - General Chief complaint: ED General Medical Stated complaint: facial/neck swelling Time Seen by Provider: 04/24/19 19:04 Source: patient Mode of arrival: private vehicle Limitations: no limitations - History of Present Illness Pain Scale: 9 - Related Data Home Medications Medication Instructions Recorded Confirmed Pegvisomant [Somavert] 30 mg SQ DAILY 05/15/15 04/24/19 Cabergoline 0.5 mg PO QWEEK 04/19/19 04/24/19 Allergies Allergy/AdvReac Type Severity Reaction Status Date / Time No Known Allergies Allergy Verified 08/06/17 11:31 Constitutional: Reports: fever, chills. Denies: weakness ENT ED: Reports: ear pain, other (Swelling and erythema to the right external ear with indurated mass to right cheek). Denies: dental pain, hearing loss, congestion, dysphagia Cardiovascular: Denies: chest pain, palpitations Respiratory: Denies: cough, dyspnea, wheezes Gastrointestinal: Denies: abdominal pain, nausea, vomiting, diarrhea, constipation Genitourinary: Denies: urgency, dysuria, frequency Neurological: Denies: headache, weakness, numbness Past Medical History - Past Medical History Medical history: Reports: other Surgical history: Reports: breast surgery (Left breast surgery due to benign tumor), hysterectomy, other (Left knee surgeries 2, T&A, hysterectomy, t ransnasal surgery for pituitary tumor, tubal ligation) 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 history: 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 - Social History Smoking Status: Former smoker Smokeless Tobacco Status: No Alcohol use: Reports: occasionally Drug use: Reports: none Physical Exam - General Limitations: no limitations General appearance: alert, in no apparent distress Course Vital Signs Temperature 103 F H 04/24/19 18:53 Pulse Rate 100 04/24/19 18:53 Respiratory Rate 18 04/24/19 18:53 Blood Pressure 165/93 04/24/19 18:53 O2 Sat by Pulse Oximetry 99 04/24/19 18:53 Temperature 100.5 F H 04/24/19 22:29 Pulse Rate 92 04/24/19 22:29 Respiratory Rate 15 04/24/19 22:29 Blood Pressure 128/77 04/24/19 22:29 O2 Sat by Pulse Oximetry 94 04/24/19 22:29 Oxygen Delivery Oxygen Delivery Room Air Medical Decision Making - Lab Data Result diagrams: 04/24/19 19:15 04/24/19 19:15 Lab Results 04/24/19 04/24/19 04/24/19 Range/Units 19:15 19:15 19:15 WBC 11.5 H (4.3-11.1) K/mcL RBC 3.92 (3.82-4.97) M/mcL Hgb 11.3 L (11.5-15.4) g/dL Hct 34.7 L (35.3-44.9) % MCV 88.5 (83.0-100.0) fL MCH 28.8 (28.0-33.3) pg MCHC 32.6 (31.6-35.5) g/dL RDW 14.0 (11.5-14.5) % Plt Count 241 (140-400) K/mcL MPV 11.0 (9.4-12.4) fL Immature Gran % 0.8 (0-4) % Seg Neutrophils % 80.5 % Lymphocytes % 9.8 % Monocytes % 8.6 % Eosinophils % 0.1 % Basophils % 0.2 % Neutrophils # 9.3 H (1.6-8.9) K/mcL Lymphocytes # 1.1 (0.6-4.6) K/mcL Monocytes # 1.0 (0.0-1.3) K/mcL Eosinophils # 0.0 (0.0-0.6) K/mcL Basophils # 0.0 (0.0-0.2) K/mcL Sodium 138 (136-145) mEq/L Potassium 3.3 L (3.5-5.1) mEq/L Chloride 103 (98-107) mEq/L Carbon Dioxide 25 (23-29) mEq/L BUN 18 (6-20) mg/dL Creatinine 0.90 (0.60-1.20) mg/dL Est GFR ( Amer) > 60 (> 60) Est GFR (Non-Af Amer) > 60 (> 60) BUN/Creatinine Ratio 20 (6-26) Glucose 171 H (70-105) mg/dL Calculated Osmolality 292 (280-300) Lactic Acid 2.8 H (0.5-2.2) mmol/L Calcium 9.1 (8.6-10.3) mg/dL Attestation Statement - Attestation Attestation: I examined this patient and my medical decision-making was reviewed with the Resident Physician. I agree with the documented findings, disposition and treatment plan as described except to the extent set forth below. Patient a 48-year-old female presents to department with chief complaint of right-sided facial and ear swelling. The patient reports that recently she was seen for a sore throat treated with by mouth prednisone noticed she started have swelling in the parotid area of her face. Patient also noticed that its extended to the auricle and has significant pain and pain with movement and touching of her ear. Exam the patient is awake alert in mild pain distress she has erythema and swelling of the right are all there is swelling of the right parotid gland region. Medical decision management will undergo laboratory testing as well as helical imaging of the facial bones with IV contrast to evaluate for abscess/infection. Patient will be treated with IV Zosyn in the emergency department and the patient will require admission.
[2019-04-24 19:50] LABS: BUN/Creatinine Ratio 20 (6-26); Blood Urea Nitrogen 18 mg/dL (6-20); Calcium 9.1 mg/dL (8.6-10.3); Carbon Dioxide 25 mEq/L (23-29); Chloride 103 mEq/L (98-107); Glucose 171 mg/dL (70-105); Osmolality,Calculated 292 (280-300); Potassium 3.3 mEq/L (3.5-5.1); Sodium 138 mEq/L (136-145); eGFR For African Americans > 60 (> 60); eGFR For Non-African Americans > 60 (> 60)
[2019-04-24] MEDS ORDERED: Ondansetron 4 MG/2 ML VIAL IVP PRN (22:04)
[2019-04-24] MEDS ORDERED: Ketorolac 15 MG/ML VIAL IVP PRN (22:04)
[2019-04-24] MEDS ORDERED: Naloxone 0.4 MG/ML INJ IVP PRN (22:04)
[2019-04-24] MEDS ORDERED: 0.9 % Sodium Chloride 1,000 ML IVC SCH (22:15)
--- NOTE | 2019-04-24 22:17 | Internal Med History&Physical ---
Date of Encounter: 04/24/19 Time of Encounter: 22:14 Internal Medicine - H&P: HPI Chief complaint: Facial Swelling History of present illness: Ms. Mcintosh is a 48 year old female with past medical history of Acromegaly who presents with right-sided facial swelling. Patient states that she was recently evaluated at [facility] on 04/19 for sore throat. Strep throat had been ruled and patient was diagnosed with viral pharyngitis and was prescribed oral prednisone. Patient denied any swelling at that time. She took her last dose of prednisone today. Her symptoms of sore throat have improved, however, she complains of right sided facial swelling involving her right ear since yesterday which became progressively worse today. Denies any trauma or injury to that a jorgito of her face. Patient has associated pain which she described as tightness and rates as a 9 out of 10. She denies feeling like her throat is closing, shortness of breath, hoarse voice, denies ear pain, drainage from the ear, or changes in hearing. Patient admits to subjective fevers and chills at home. She denies chest pain, shortness of breath, abdominal pain, diarrhea, constipation, dysuria, urinary frequency. Reports sick contacts consisting of her daughter and granddaughter both had strep. 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 On initial valuation patient was found to be febrile with a temperature of 103. She was mildly hypertensive with a heart rate in the 90s to 100s. CT imaging with contrast showed cellulitis seen around the right ear region and right cheek with no evidence for abscess. Glands appear normal. Case was discussed with Dr. Lau, ENT who agreed with admission and current management. No further recommendations at this time. Past Med Surg Social Fam HX - Past Medical History Medical history: other Additional medical history: Acromegally. 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 brain - Social History Smoking Status: Former smoker Smokeless Tobacco Status: No Alcohol use: occasionally Drug use: none - Family History Mother Living Status: Still Living Hx Family Cardiac Disorders: No (HTN) Hx Family Cancer: No (ovarian) Internal Medicine - H&P: Meds Pegvisomant [Somavert] 30 mg SQ DAILY 05/15/15 [History] Cabergoline 0.5 mg PO QWEEK 04/19/19 [History] Allergy/AdvReac Type Severity Reaction Status Date / Time No Known Allergies Allergy Verified 08/06/17 11:31 All Systems PM: A 10-system review of systems was performed and is negative for pertinent findings except as documented above in the HPI. - Constitutional Constitutional: no chills, no fever(s), no night sweats - EENT Eyes: no change in vision, no discharge, no pain, no photophobia Ears: no ear discharge, no ear pain, no tinnitus Nose, mouth and throat: no dysphagia, no nasal discharge, no neck pain, no sore throat - Cardiovascular Cardiovascular ROS IM: no chest pain, no diaphoresis, no dyspnea, no lightheadedness, no palpitations, no syncope - Respiratory Respiratory: no cough, no dyspnea, no wheezing, no excessive phlegm production - Gastrointestinal Gastrointestinal: no abdominal pain, no diarrhea, no hematemesis, no hematochezia, no melena, no nausea, no vomiting - Genitourinary Genitourinary: no change in urinary stream, no dysuria, no flank pain, no hematuria - Musculoskeletal Musculoskeletal ROS IM: no numbness, no tingling - Integumentary Integumentary IM: no rash, no unusual bruising - Neurological Neurological ROS: no confusion, no convulsions, no focal weakness, no numbness, no tingling, no tremor(s) - Hematologic/Lymphatic Hematologic/Lymphatic: no easy bruising - Constitutional Vitals: Temp Pulse Resp BP Pulse Ox 102.8 F H 99 21 145/80 96 04/24/19 21:37 04/24/19 21:37 04/24/19 19:12 04/24/19 21:37 04/24/19 21:37 Exam: General: Alert and oriented 3 Skin:Normal color, no rash, no lesions. HEENT:EOM, pupils equal, round and reactive. Edema of the right side of the face over the mandible and extending to the right ear Cardiovascular:Normal S1 & S2, no rubs, murmurs or gallops. No JVD. Pulse regular. Lungs:Normal breath sounds, no wheezes or crackles. Abdomen:Soft, non-tender, no rigidity. Extremities:No deformity, no edema or tenderness, no joint swelling or clubbing. Neurological:Normal cognition and motor skills. Pulses:Carotid and radial pulses normal +2. Rest of the physical exam is non contributory Internal Med - H&P Results - Labs CBC & Chem 7: 04/25/19 04:45 04/25/19 05:57 Labs: Short CBC 04/24/19 Range/Units 19:15 WBC 11.5 H (4.3-11.1) K/mcL Hgb 11.3 L (11.5-15.4) g/dL Hct 34.7 L (35.3-44.9) % Plt Count 241 (140-400) K/mcL Neutrophils # 9.3 H (1.6-8.9) K/mcL BMP 04/24/19 19:15 Sodium 138 Potassium 3.3 L Chloride 103 Carbon Dioxide 25 BUN 18 Creatinine 0.90 Glucose 171 H Calcium 9.1 - Impressions ITS Impressions Face CT 04/24/19 19:14 IMPRESSION: Cellulitis seen around the right year region on the right with no evidence for abscess. D/ / Tavo Farah MD / Tavo Farah MD Interpreting Provider: Tavo Farah MD - Assessment and Plan (1) Cellulitis Current Visit: Yes Status: Acute Assessment and plan: Patient presenting with 2 day history of right-sided swelling and pain in the setting of fever and leukocytosis concerning for right-sided facial cellulitis. Area of swelling is tender to palpation and nonfluctuant. CT scan of the head with contrast consistent with cellulitis around the right ear region with no evidence for abscess. Case was discussed with ENT who recommended continuing current management. Patient started on vancomycin and Zosyn. -Continue current antibiotic regimen -Follow-up blood cultures -Consider ENT/ID consult if symptoms do not improve Qualifiers: Site of cellulitis: face Qualified Code(s): L03.211 - Cellulitis of face (2) Severe sepsis Current Visit: Yes Status: Acute Assessment and plan: Patient presenting with Fever, tachycardia, and Leukocytosis. Found to have a lactic acid of 2.8. Patient received 2 L of fluid bolus in the ED. Repeat lactic acid 1.0. Currently hemodynamically stable -Continue fluid support -Continue antibiotics -Follow up cultures (3) Hypokalemia Current Visit: Yes Status: Acute Assessment and plan: Mild hypokalemia of 3.3. We will replete with oral potassium (4) Facial swelling Current Visit: Yes Status: Acute Assessment and plan: See Cellulitis above (5) Swelling of right ear Current Visit: Yes Status: Acute (6) Acromegaly Current Visit: No Status: Chronic Assessment and plan: Continue patient's home regimen (7) DVT prophylaxis Current Visit: Yes Status: Acute - Time Spent With Patient Total time spent is greater than 50% in coordination of care (as documented) at patient's floor/unit and/or counseling patient:
[2019-04-25 05:16] LABS: Basophils % 0.2 %; Hematocrit 34.8 % (35.3-44.9); Hemoglobin 10.9 g/dL (11.5-15.4); Immature Granulocytes % 0.7 % (0-4); Lymphocytes # 0.7 K/mcL (0.6-4.6); Lymphocytes % 5.4 %; Mean Corpuscular HGB Conc 31.3 g/dL (31.6-35.5); Mean Corpuscular Hemoglobin 28.8 pg (28.0-33.3); Mean Corpuscular Volume 91.8 fL (83.0-100.0); Mean Platelet Volume 10.7 fL (9.4-12.4); Monocytes # 0.7 K/mcL (0.0-1.3); Monocytes % 5.4 %; Neutrophils # 11.4 K/mcL (1.6-8.9); Platelet Count 237 K/mcL (140-400); Red Blood Count 3.79 M/mcL (3.82-4.97); Red Cell Distribution Width 14.1 % (11.5-14.5); Segmented Neutrophils % 88.3 %; White Blood Count 12.9 K/mcL (4.3-11.1)
[2019-04-25 05:26] LABS: INR 1.2; Prothrombin Time 14.1 Seconds (9.4-12.1)
[2019-04-25 05:29] LABS: Activated Partial Thrombo Time 29.9 Seconds (26.0-36.0)
[2019-04-25 06:37] LABS: Alanine Aminotransferase 22 Units/L (7-52); Albumin 3.5 g/dL (3.5-5.7); Albumin/Globulin Ratio 1.3 (1.1-2.2); Alkaline Phosphatase 84 Units/L (34-104); Aspartate Amino Transferase 16 Units/L (13-39); BUN/Creatinine Ratio 17 (6-26); Bilirubin,Total 0.3 mg/dL (0.3-1.0); Blood Urea Nitrogen 11 mg/dL (6-20); Calcium 8.5 mg/dL (8.6-10.3); Carbon Dioxide 23 mEq/L (23-29); Chloride 110 mEq/L (98-107); Globulin 2.7 g/dL (2.4-3.5); Glucose 175 mg/dL (70-105); Osmolality,Calculated 298 (280-300); Sodium 142 mEq/L (136-145); Total Protein 6.2 g/dL (6.4-8.9); eGFR For African Americans > 60 (> 60); eGFR For Non-African Americans > 60 (> 60)
[2019-04-25] MEDS: *HR* Heparin 5,000 UNIT/ML VIAL SQ SCH ×3 (06:46→21:18)
[2019-04-25] MEDS: Piperacillin/Tazobactam 3.375 GM in 0.9 % Sodium Chloride Mini Bag 100 ML IVPB SCH ×2 (09:43→17:49)
[2019-04-25] MEDS: PEGVISOMANT SQ SCH (09:44)
[2019-04-25] MEDS ORDERED: traMADol 50 MG TABLET PO PRN (10:56)
--- NOTE | 2019-04-25 10:58 | Internal Med Progress Note ---
Hospitalist Progress Note - Encounter Date of Encounter: 04/25/19 Time of Encounter: 08:15 - Subjective Interval History: Patient seen the bedside. Mentions increase in the pain at the site of cellulitis. Denies fever, chills, rigors. Denies shortness of breath. Mentioned that she had sore throat almost one week there, she was negative for strep, sore throat almost went away but then she developed a cellulitis. Did not have any injury or trauma. No previous episodes. Denies hearing loss, ear infections. - Exam Vitals: Temp Pulse Resp BP Pulse Ox 97.8 F 58 14 112/68 95 04/25/19 06:34 04/25/19 06:34 04/25/19 06:34 04/25/19 06:34 04/25/19 06:34 Exam: General: Alert and oriented 3 Skin:Normal color, no rash, no lesions. HEENT:EOM, pupils equal, round and reactive. Edema of the right side of the face over the mandible and extending to the right ear, erythema noted, tenderness to palpation. Cardiovascular:Normal S1 & S2, no rubs, murmurs or gallops. No JVD. Pulse regular. Lungs:Normal breath sounds, no wheezes or crackles. Abdomen:Soft, non-tender, no rigidity. Extremities:No deformity, no edema or tenderness, no joint swelling or clubbing. Neurological:Normal cognition and motor skills. Pulses:Carotid and radial pulses normal +2. - Assessment and Plan (1) Cellulitis Current Visit: Yes Status: Acute Assessment and Plan: Today history of right sided swelling and pain along with fever. Leukocytosis of 11.5, 12.9 today. Afebrile. Hemodynamic stable. CT scan of the head with contrast consistent with cellulitis around the right ear region with no evidence for abscess. Blood cultures have been sent. Continue the current antibiotic regimen. ID consult placed as it seems patient swelling and erythema has worsened since last night. Patient is clinical severe pain, we will adjust up in the medication regimen. (2) Facial swelling Current Visit: Yes Status: Acute Assessment and Plan: Likely cellulitis. Management mentioned above. (3) Acromegaly Current Visit: No Status: Chronic Assessment and Plan: Continue patient's home regimen (4) Swelling of right ear Current Visit: Yes Status: Acute Assessment and Plan: Secondary to cellulitis. Does not seem to be having any ear discharge. (5) Severe sepsis Current Visit: Yes Status: Acute Assessment and Plan: Patient presenting with Fever, tachycardia, and Leukocytosis. Found to have a lactic acid of 2.8. Patient received 2 L of fluid bolus in the ED. Repeat lactic acid 1.0. Currently hemodynamically stable Continue antibiotics Follow up cultures (6) Hypokalemia Current Visit: Yes Status: Acute Assessment and Plan: Resolved. Potassium of 4.0 (7) DVT prophylaxis Current Visit: Yes Status: Acute Assessment and Plan: Subcutaneous heparin. - Time Spent with Patient Total time spent is greater than 50% in coordination of care (as documented) at patient's floor/unit and/or counseling patient: Internal Medicine: Result - Labs CBC & Chem 7: 04/25/19 04:45 04/25/19 05:57 Labs: Short CBC 04/24/19 04/25/19 Range/Units 19:15 04:45 WBC 11.5 H 12.9 H (4.3-11.1) K/mcL Hgb 11.3 L 10.9 L (11.5-15.4) g/dL Hct 34.7 L 34.8 L (35.3-44.9) % Plt Count 241 237 (140-400) K/mcL Neutrophils # 9.3 H 11.4 H (1.6-8.9) K/mcL BMP 04/24/19 04/25/19 19:15 05:57 Sodium 138 142 Potassium 3.3 L 4.0 Chloride 103 110 H Carbon Dioxide 25 23 BUN 18 11 Creatinine 0.90 0.64 Glucose 171 H 175 H Calcium 9.1 8.5 L Liver Function 04/25/19 Range/Units 05:57 Total Bilirubin 0.3 (0.3-1.0) mg/dL AST 16 (13-39) Units/L ALT 22 (7-52) Units/L Alkaline Phosphatase 84 (34-104) Units/L Albumin 3.5 (3.5-5.7) g/dL - ABG Interpretation ABG results: PT/INR, D-dimer PT 14.1 Seconds (9.4-12.1) H 04/25/19 04:45 - Impressions Impressions Face CT 04/24/19 19:14 IMPRESSION: Cellulitis seen around the right year region on the right with no evidence for abscess. D/ / Tavo Farah MD / Tavo Farah MD Interpreting Provider: Tavo Farah MD Consult Discharge Plan - Plan Referrals: Eron Jackson MD [Primary Care Provider] - (1) Cellulitis Qualifiers: Site of cellulitis: face Qualified Code(s): L03.211 - Cellulitis of face
--- NOTE | 2019-04-25 14:53 | Infectious Disease Consult ---
Infectious Disease-Consult - Encounter Date/Time Date of Encounter: 04/25/19 Time of Encounter: 14:50 - Data of Consult Patient: new to practice Reason for consult: facial cellulitis Consult date: 04/25/19 Requesting Physician: Victor M Stallings Primary Care Provider: Eron Jackson MD - HPI HPI: Patient is a 48-year-old woman who presented to [place] last night with facial swelling.. We are consulted today for facial swelling is getting worse. Patient is a 48-year-old woman who has a past medical history significant for acromegaly and mitral valve prolapse presented to the patient with right sided facial swelling. Briefly, patient tells me that she lives with her , child and grandchild at home. 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 Patient states that about 3 weeks prior to admission both her grandchild and her child had sore throat and were diagnosed with strep t hroat. About 1 week prior to admission she has some throat pain and she was concerned that she could have strep throat as well. Patient was seen as an outpatient on 04/19/2019 and a swab for strep group a strep was negative. She was told that this was viral. On the Monday prior to admission patient started having right facial pain and right by her ear. She denies any earache she denies any ear fullness she denied any ear discharge. Pain was localized and did not shoot up to the forehead down to the jaw line or to her inside her mouth. One day prior to admission the pain got so severe and she started having fevers chills and rigors. Patient came in to the hospital for evaluation. Since admission, patient has been febrile with a MAXIMUM TEMPERATURE of 103 Fahrenheit, tachycardic and thick. Presenting labs revealed a WBC of 11.5 junk to 12.9 with 80% neutrophils no bands. Chemistry was within normal limits BUN 11 creatinine 0.64. Blood cultures were obtained and are no growth to date. CT facial previous cellulitis seen around the right ear region on the right with no evidence for abscess. Patient was started on Vancomycin and Zosyn we were asked to evaluate the patient's make further recommendations. - ROS Review of Systems: 10 point review of systems done, pertinent positives and negatives mentioned in the history of present illness. - Results CBC & Chem 7: 04/25/19 04:45 04/25/19 05:57 - Exam Vitals: Temp Pulse Resp BP Pulse Ox 98.3 F 61 16 130/75 95 04/25/19 12:26 04/25/19 12:26 04/25/19 12:26 04/25/19 12:26 04/25/19 12:26 Exam: GENERAL: Laying in bed, appears comfortable. HEAD: Normocephalic atraumatic EYES: PERRLA, EOMI, no conjunctival hemorrhage, sclera anicteric ENT: Mucous membranes moist, no oral thrush. Patient has her own teeth. No dental abscess noted. She has a firm very tender mass anterior to the right ear that is very warm to touch. There is some mild erythema over. I did not appreciate any cervical or submandibular lymphadenopathy. NECK: Supple. No meningeal signs. No masses LUNGS: Chest expanding symmetrically. Lungs sounds audible both lung bowens. No wheezing, no rhonchi CV: RRR, S1S2, ABDOMEN: Soft, nontender, nondistended. Bowel sounds audible EXTREMITY: Adequate perfusion. No joint effusion. SKIN: Normal color. No rash. NEURO: Awake alert oriented 3. No obvious focal deficit PSYCH: Calm and appropriate. No agitation. Pegvisomant [Somavert] 30 mg SQ DAILY 05/15/15 [History] Cabergoline 0.5 mg PO TUFR 04/19/19 [History] Allergy/AdvReac Type Severity Reaction Status Date / Time No Known Allergies Allergy Verified 08/06/17 11:31 - Assessment and Plan (1) Sepsis Current Visit: Yes Status: Acute Patient had 3 SIRS criteria on admission Secondary to facial cellulitis/mass Also concern for bacteremia but blood cultures pending Qualifiers: Sepsis type: sepsis due to unspecified organism Sepsis acute organ dysfunction status: unspecified Qualified Code(s): A41.9 - Sepsis, unspecified organism SNOMED Code(s): 02313735 (2) Facial swelling Current Visit: Yes Status: Acute Symptoms started 2 days prior to admission associated with fevers chills and rigors CT face 04/24/2019: Cellulitis seen around the right ear region with no evidence for abscess Blood cultures obtained 09/29 sets 04/24/2019. No growth to date. Causative organism or etiology unknown. Patient had her mumps vaccine when she was young. SNOMED Code(s): 206463432 (3) Swelling of right ear Current Visit: Yes Status: Acute SNOMED Code(s): 888993505 (4) Acromegaly Current Visit: No Status: Chronic Status post pituitary surgery SNOMED Code(s): 88599847 - Recommendations Recommendations: Continue vancomycin Continue Zosyn Consult ENT; notify the hospitalist of recommendation Check amylase Follow up on blood cultures Goal vancomycin trough around 10 Monitor labs and for drug toxicity. Past Med Surg Social Fam HX - Past Medical History Medical history: other Additional medical history: Acromegally. Pre diabetic Psychiatric history: no psych history - Past Surgical History Surgical History: breast surgery (Left breast surgery due to benign tumor), h ysterectomy, other (Left knee surgeries 2, T&A, hysterectomy, transnasal surgery for pituitary tumor, tubal ligation) Additional surgical history: lump removed from L breast, L knee surgery. brain - Social History Smoking Status: Former smoker Smokeless Tobacco Status: No Alcohol use: occasionally Drug use: none - Family History Mother Living Status: Still Living Hx Family Cardiac Disorders: No (HTN) Hx Family Cancer: No (ovarian) Consult Discharge Plan - Plan Referrals: Eron Jackson MD [Primary Care Provider] -
--- NOTE | 2019-04-25 19:23 | ENT - Consult Note ---
Date of Encounter: 04/25/19 Time of Encounter: 16:15 Assessment and Plan (1) Cellulitis Current Visit: Yes Status: Acute She presents with extensive cellulitis of the right periparotid and malar regions. Does not appear to be from a salivary or otologic origin. No identifiable abscess to drain. Currently on Vanc/Zosyn. Subjectively slowly improving. Has not yet been on abx for 24 hours. -Agree with ID input -Continue to monitor closely. Signs such as crepitus or bluish/price discoloration of skin would be worrisome for necrotizing fascitis. This would be a surgical emergency. -low threshold to reimage. I would obtain a CT neck and face with contrast if she spikes a fever, or clinically worsens. -Monitior her neck symptoms closely as she is at risk of developing a deep neck space abscess. -would demarcate limit of erythema -aggresive blood sugar control -I will continue to follow along Qualifiers: Site of cellulitis: face Qualified Code(s): L03.211 - Cellulitis of face (2) Sepsis Current Visit: Yes Status: Acute Appears to be resloved as he is no longer febrile or tachycardic. Contniue broad spectrum abx and supportive care per primary. Qualifiers: Sepsis type: sepsis due to unspecified organism Sepsis acute organ dysfunction status: without acute organ dysfunction Qualified Code(s): A41.9 - Sepsis, unspecified organism History of Present Illness Consult date: 04/25/19 Reason for ENT Consult: other (Facial Cellulitis) Requesting physician: Victor M Stallings History of present illness: This is a 48 year old female who presented to the ED yesterday afternoon with right sided facial swelling and erythema. Patient states she was diagnosed with viral pharyngitis last week. She was evaluated for sore throat and had a negative strep test. She was treated with steroids. She was not placed on antibiotics. She came to the ED yesterday after her right cheek, preauricular and post-auricular regions became swollen and red. The area is very tender. She was septic and febrile to 103 with a WBC of 11.9. She was also tachycardic. She was started on Vanc/Zosyn. CT was done which showed cellulitis without abscess. Today she is feeling slightly better. She has been afebrile with a normal heart rate. Her WBC was up slightly to 12.9. Although her face is feeling somewhat better, she is now having pain into her neck. She has prediabetes. Denies history of otitis externa. Denies preceding otitis media. Denies trauma to the area. No precedent folliculitis. No history of parotitis. Past Med Surg Social Fam HX - Past Medical History Medical history: other Additional medical history: Acromegally. Pre diabetic Psychiatric history: no psych history - Past Surgical History Surgical History: breast surgery (Left breast surgery due to benign tumor), hys terectomy, other (Left knee surgeries 2, T&A, hysterectomy, transnasal surgery for pituitary tumor, tubal ligation) Additional surgical history: lump removed from L breast, L knee surgery. brain - Social History Smoking Status: Former smoker Smokeless Tobacco Status: No Alcohol use: occasionally Drug use: none - Family History Mother Living Status: Still Living Hx Family Cardiac Disorders: No (HTN) Hx Family Cancer: No (ovarian) Medications and Allergies Cabergoline 0.5 mg PO TUFR 04/19/19 [History] Pegvisomant [Somavert] 30 mg SQ DAILY 04/25/19 [History] Allergy/AdvReac Type Severity Reaction Status Date / Time No Known Allergies Allergy Verified 08/06/17 11:31 ENT Exam Initial Vital Signs Temp Pulse Resp BP Pulse Ox 103 F H 100 18 165/93 99 04/24/19 18:53 04/24/19 18:53 04/24/19 18:53 04/24/19 18:53 04/24/19 18:53 - Additional Findings General: Well-developed, well-nourished. No distress. Communication and Voice: Clear pitch and clarity Respiratory Respiratory effort: Equal inspiration and expiration without stridor Auscultation: Equal breath sounds bilaterally Cardiovascular Heart: regular rate and rhythm Peripheral Vascular: Warm extremities with equal pulses Neuro: Patient oriented to person, place, and time; Appropriate mood and affect; Gait is intact with no imbalance; Cranial nerves II-XII are intact Head and Face Inspection: Normocephalic and atraumatic. Significant erythema and edema involving the right post-auricuar region, pre-auricular region and right malar region. Palpation: Area of eythema and edema very tender to palpation. No fluctuance appreciated. Facial Strength: Facial motility symmetric and full bilaterally Eyes: PERRLA. No nystagmus with normal extraocular motion bilaterally ENT Pinna: External ear intact and fully developed External canal: Canal is patent with intact skin, no signs of otitis externa Tympanic Membrane: Clear and mobile bilatearlly External nose: No scar or anatomic deformity Internal Nose: Septum intact and midline. No edema, polyp, or rhinorrhea. TMJ: No pain to palpation with full mobility Salivary Glands: No mass or tenderness. Area of over right parotid tender and red. Able to express clear saliva for right cece's duct. Lips: No lesion. Oral cavity: No mass or lesion. Oropharynx: No mass or lesion. Tonsillar fossa symmetric. Base of tongue soft without mass or induration. Nasopharynx: unable to visualize Hypopharynx: unable to visualize Larynx: unable to visualize Neck Full range of motion although pain with right lateral movement Trachea: Midline trachea. Thyroid: No mass or nodularity. Lymphatics: No lymphadenopathy. Exam Initial Vital Signs Temp Pulse Resp BP Pulse Ox 103 F H 100 18 165/93 99 04/24/19 18:53 04/24/19 18:53 04/24/19 18:53 04/24/19 18:53 04/24/19 18:53 Results - Labs 04/25/19 04:45 04/25/19 05:57 Abnormal lab results WBC 12.9 K/mcL (4.3-11.1) H 04/25/19 04:45 RBC 3.79 M/mcL (3.82-4.97) L 04/25/19 04:45 Hgb 10.9 g/dL (11.5-15.4) L 04/25/19 04:45 Hct 34.8 % (35.3-44.9) L 04/25/19 04:45 MCHC 31.3 g/dL (31.6-35.5) L 04/25/19 04:45 Neutrophils # 11.4 K/mcL (1.6-8.9) H 04/25/19 04:45 PT 14.1 Seconds (9.4-12.1) H 04/25/19 04:45 Potassium 3.3 mEq/L (3.5-5.1) L 04/24/19 19:15 Chloride 110 mEq/L (98-107) H 04/25/19 05:57 Glucose 175 mg/dL (70-105) H 04/25/19 05:57 Lactic Acid 2.8 mmol/L (0.5-2.2) H 04/24/19 19:15 Calcium 8.5 mg/dL (8.6-10.3) L 04/25/19 05:57 Serum Total Protein 6.2 g/dL (6.4-8.9) L 04/25/19 05:57 Diabetes panel 04/24/19 04/25/19 Range/Units 19:15 05:57 Sodium 138 142 (136-145) mEq/L Potassium 3.3 L 4.0 (3.5-5.1) mEq/L Chloride 103 110 H (98-107) mEq/L Carbon Dioxide 25 23 (23-29) mEq/L BUN 18 11 (6-20) mg/dL Creatinine 0.90 0.64 (0.60-1.20) mg/dL Glucose 171 H 175 H (70-105) mg/dL Calcium 9.1 8.5 L (8.6-10.3) mg/dL AST 16 (13-39) Units/L ALT 22 (7-52) Units/L Alkaline Phosphatase 84 (34-104) Units/L Albumin 3.5 (3.5-5.7) g/dL Calcium panel 04/24/19 04/25/19 Range/Units 19:15 05:57 Calcium 9.1 8.5 L (8.6-10.3) mg/dL Albumin 3.5 (3.5-5.7) g/dL Pituitary panel 04/24/19 04/25/19 Range/Units 19:15 05:57 Sodium 138 142 (136-145) mEq/L Potassium 3.3 L 4.0 (3.5-5.1) mEq/L Chloride 103 110 H (98-107) mEq/L Carbon Dioxide 25 23 (23-29) mEq/L BUN 18 11 (6-20) mg/dL Creatinine 0.90 0.64 (0.60-1.20) mg/dL Glucose 171 H 175 H (70-105) mg/dL Calcium 9.1 8.5 L (8.6-10.3) mg/dL Adrenal panel 04/24/19 04/25/19 Range/Units 19:15 05:57 Sodium 138 142 (136-145) mEq/L Potassium 3.3 L 4.0 (3.5-5.1) mEq/L Chloride 103 110 H (98-107) mEq/L Carbon Dioxide 25 23 (23-29) mEq/L BUN 18 11 (6-20) mg/dL Creatinine 0.90 0.64 (0.60-1.20) mg/dL Glucose 171 H 175 H (70-105) mg/dL Calcium 9.1 8.5 L (8.6-10.3) mg/dL Total Bilirubin 0.3 (0.3-1.0) mg/dL AST 16 (13-39) Units/L ALT 22 (7-52) Units/L Alkaline Phosphatase 84 (34-104) Units/L Albumin 3.5 (3.5-5.7) g/dL All other labs normal. - Imaging Additional studies: CT neck reviewed: extensive inflammation of the right malar and periparotid region. No clear abscess. Several lymph nodes in the right cervical basin. Consult Discharge Plan - Plan Referrals: Eron Jackson MD [Primary Care Provider] -
[2019-04-25] MEDS: *HR* HYDROcodone/Acet 5/325 mg TABLET PO PRN (21:17)
[2019-04-26] MEDS: Piperacillin/Tazobactam 3.375 GM in 0.9 % Sodium Chloride Mini Bag 100 ML IVPB SCH ×4 (00:37→22:58)
[2019-04-26] MEDS: *HR* Heparin 5,000 UNIT/ML VIAL SQ SCH ×3 (05:47→20:40)
--- NOTE | 2019-04-26 08:20 | ENT - Progress Note ---
Date of Encounter: 04/26/19 Time of Encounter: 08:17 - Assessment and Plan (1) Cellulitis Current Visit: Yes Status: Acute She appears to be slowly improving. Will require close monitoring. -ok for diet -encourage right parotid massages, and sour candies to treat potential parotitis -low threshold for repeat CT (CT face/neck WITH contrast) -Abx and supportive care per ID and primary team -ENT will continue to follow Qualifiers: Site of cellulitis: face Qualified Code(s): L03.211 - Cellulitis of face (2) Sepsis Current Visit: Yes Status: Acute Qualifiers: Sepsis type: sepsis due to unspecified organism Sepsis acute organ dysfunction status: without acute organ dysfunction Qualified Code(s): A41.9 - Sepsis, unspecified organism Subjective Narrative: She had an uneventful night. Remains afebrile. No subjective changes. Objective Initia Vital Signs 04/26/19 03:59 04/26/19 06:26 Temperature 97.8 F 99.5 F Pulse Rate 64 71 Respiratory Rate 17 16 Blood Pressure 130/83 119/72 O2 Sat by Pulse Oximetry 96 93 l Vital Signs Temp Pulse Resp BP Pulse Ox 103 F H 100 18 165/93 99 04/24/19 18:53 04/24/19 18:53 04/24/19 18:53 04/24/19 18:53 04/24/19 18:53 - Additional Exam AAOx3, non-labored breathing Right EAC without edema or signs of OE Stable edema, mildly improved over the right post-auricular area. Still significant over parotid regions Full neck ROM OC/OP clear, no palatal fullness. No signs of peritonsillar or RP abscess No trismus Unable to express saliva from right cece's duct this am - Labs 04/25/19 04:45 04/25/19 05:57 No WBC resulted today at time of my evaluation Consult Discharge Plan - Plan Referrals: Eron Jackson MD [Primary Care Provider] -
[2019-04-26 08:28] LABS: Basophils % 0.3 %; Eosinophils % 0.4 %; Hematocrit 37.1 % (35.3-44.9); Hemoglobin 11.9 g/dL (11.5-15.4); Immature Granulocytes % 2.1 % (0-4); Lymphocytes # 1.7 K/mcL (0.6-4.6); Mean Corpuscular HGB Conc 32.1 g/dL (31.6-35.5); Mean Corpuscular Hemoglobin 28.6 pg (28.0-33.3); Mean Corpuscular Volume 89.2 fL (83.0-100.0); Mean Platelet Volume 10.5 fL (9.4-12.4); Monocytes % 8.7 %; Neutrophils # 8.3 K/mcL (1.6-8.9); Platelet Count 247 K/mcL (140-400); Red Blood Count 4.16 M/mcL (3.82-4.97); Segmented Neutrophils % 73.5 %; White Blood Count 11.2 K/mcL (4.3-11.1)
[2019-04-26 08:36] LABS: BUN/Creatinine Ratio 10 (6-26); Blood Urea Nitrogen 7 mg/dL (6-20); Calcium 9.1 mg/dL (8.6-10.3); Carbon Dioxide 27 mEq/L (23-29); Chloride 104 mEq/L (98-107); Glucose 121 mg/dL (70-105); Osmolality,Calculated 295 (280-300); Potassium 3.5 mEq/L (3.5-5.1); Sodium 143 mEq/L (136-145); eGFR For African Americans > 60 (> 60); eGFR For Non-African Americans > 60 (> 60)
[2019-04-26] MEDS: CABERGOLINE 0.5 MG PO SCH (08:55)
[2019-04-26] MEDS: PEGVISOMANT SQ SCH (08:55)
[2019-04-26] MEDS: *HR* HYDROcodone/Acet 5/325 mg TABLET PO PRN ×2 (08:57→22:28)
[2019-04-26] MEDS ORDERED: PEGVISOMANT SQ SCH (09:00)
--- NOTE | 2019-04-26 11:12 | Internal Med Progress Note ---
Hospitalist Progress Note - Encounter Date of Encounter: 04/26/19 Time of Encounter: 09:10 - Subjective Interval History: Patient was seen at bedside. Mention improvement in the swelling. Mentions improvement in the pain. Denies fever, chills, rigors. Has been feeling better than yesterday. No other acute overnight events. ENT was consulted, no lisbeth gical intervention at this point. Start the patient on diet. - Exam Vitals: Temp Pulse Resp BP Pulse Ox 98.2 F 78 16 113/71 95 04/26/19 10:11 04/26/19 10:11 04/26/19 10:11 04/26/19 10:11 04/26/19 10:11 Exam: General: Alert and oriented 3 Skin:Normal color, no rash, no lesions. HEENT:EOM, pupils equal, round and reactive. Edema of the right side of the face over the mandible and extending to the right ear, erythema noted, tenderness to palpation, mild improvement as compated to yesterday per markings. Cardiovascular:Normal S1 & S2, no rubs, murmurs or gallops. No JVD. Pulse regular. Lungs:Normal breath sounds, no wheezes or crackles. Abdomen:Soft, non-tender, no rigidity. Extremities:No deformity, no edema or tenderness, no joint swelling or clubbing. Neurological:Normal cognition and motor skills. Pulses:Carotid and radial pulses normal +2. - Assessment and Plan (1) Cellulitis Current Visit: Yes Status: Acute Assessment and Plan: 2 day history of right sided swelling and pain along with fever. Leukocytosis of 11.2 today, improving Afebrile. Hemodynamic stable. CT scan of the head with contrast consistent with cellulitis around the right ear region with no evidence for abscess. Blood cultures have been sent. Awaiting results Patient had the phone last night and she was able to swallow the food without any difficulty. Denies any problem with the breathing. No suspicion of any abscess in the neck but cannot be ruled out. Low threshold for CT scan. Continue the current antibiotic regimen. ID on board appreciate recommendations ENT on board, no surgical intervention at this point. (2) Facial swelling Current Visit: Yes Status: Acute Assessment and Plan: Likely cellulitis. Management mentioned above. (3) Acromegaly Current Visit: No Assessment and Plan: Continue patient's home regimen (4) Swelling of right ear Current Visit: Yes Status: Acute Assessment and Plan: Secondary to cellulitis. Does not seem to be having any ear discharge. ENT on board, apprciate recommnedations (5) Severe sepsis Current Visit: Yes Status: Acute Assessment and Plan: Patient presenting with Fever, tachycardia, and Leukocytosis. Found to have a lactic acid of 2.8. Patient received 2 L of fluid bolus in the ED. Repeat lactic acid 1.0. Currently hemodynamically stable Continue antibiotics Follow up cultures (6) Hypokalemia Current Visit: Yes Status: Acute Assessment and Plan: Resolved. Potassium normal (7) DVT prophylaxis Current Visit: Yes Status: Acute Assessment and Plan: Subcutaneous heparin. - Time Spent with Patient Total time spent is greater than 50% in coordination of care (as documented) at patient's floor/unit and/or counseling patient: Internal Medicine: Result - Labs CBC & Chem 7: 04/26/19 07:48 04/26/19 07:48 Labs: Short CBC 04/26/19 Range/Units 07:48 WBC 11.2 H (4.3-11.1) K/mcL Hgb 11.9 (11.5-15.4) g/dL Hct 37.1 (35.3-44.9) % Plt Count 247 (140-400) K/mcL Neutrophils # 8.3 (1.6-8.9) K/mcL BMP 04/26/19 07:48 Sodium 143 Potassium 3.5 Chloride 104 Carbon Dioxide 27 BUN 7 Creatinine 0.68 Glucose 121 H Calcium 9.1 - ABG Interpretation ABG results: PT/INR, D-dimer PT 14.1 Seconds (9.4-12.1) H 04/25/19 04:45 Consult Discharge Plan - Plan Referrals: Eron Jackson MD [Primary Care Provider] - (1) Cellulitis Qualifiers: Site of cellulitis: face Qualified Code(s): L03.211 - Cellulitis of face
--- NOTE | 2019-04-26 17:42 | Infectious Disease Progress No ---
ID Progress Note Date of Encounter: 04/26/19 Time of Encounter: 17:41 - Subjective Subjective: Agency and examined. Clinically doing significantly better. Less pain and swelling in the right face. No hearing problem. Patient denies any chest pain or shortness of breath. No diarrhea no urinary symptoms. She has not had a bowel movement since admission which is over 48 hours now. Vital signs reviewed continues to be afebrile labs noted - Objective CBC & Chem 7: 04/26/19 07:48 04/26/19 07:48 - Exam Vitals: Temp Pulse Resp BP Pulse Ox 98.2 F 65 16 116/75 94 04/26/19 13:51 04/26/19 13:51 04/26/19 13:51 04/26/19 13:51 04/26/19 13:51 Exam: GENERAL: Comfortable. Laying in bed NAD HEENT: LUIS EDUARDO, EOMI. Right facial cellulitis with less swelling and the not is not as hard. Erythema is subsiding LUNGS: Good air sounds bilaterally, no wheezing or rhonchi CV: RRR, S1 S2 ABDOMEN: Soft, nontender, + bowel sounds EXT: Adequate perfusion. No edema NEURO: A&OX3; no focal deficit - Assessment and Plan (1) Sepsis Current Visit: Yes Status: Acute Patient had 3 SIRS criteria on admission Secondary to facial cellulitis/mass Also concern for bacteremia but blood cultures pending Qualifiers: Sepsis type: sepsis due to unspecified organism Sepsis acute organ dysfunction status: without acute organ dysfunction Qualified Code(s): A41.9 - Sepsis, unspecified organism SNOMED Code(s): 65047388 (2) Facial swelling Current Visit: Yes Status: Acute Symptoms started 2 days prior to admission associated with fevers chills and rigors CT face 04/24/2019: Cellulitis seen around the right ear region with no evidence for abscess Blood cultures obtained 09/29 sets 04/24/2019. No growth to date. Causative organism or etiology unknown. Patient had her mumps vaccine when she was young. SNOMED Code(s): 775756402 (3) Swelling of right ear Current Visit: Yes Status: Acute SNOMED Code(s): 842758849 (4) Acromegaly Current Visit: No Status: Chronic Status post pituitary surgery SNOMED Code(s): 68708424 - Recommendations Recommendations: I would continue vancomycin/Zosyn for now Vancomycin trough 11 goal vancomycin trough between 06/11 In 2448 hours if patient continues to improve significantly and is okay with ENT, I will switch the patient to combination of Augmentin and Bactrim to treat through 05/04/2019 Monitor labs for drug toxicity Consult Discharge Plan - Plan Referrals: Eron Jackson MD [Primary Care Provider] -
[2019-04-26] MEDS: Acetaminophen 325 MG TABLET PO PRN (20:41)
[2019-04-27] MEDS: *HR* Heparin 5,000 UNIT/ML VIAL SQ SCH ×3 (05:28→23:37)
[2019-04-27 05:29] LABS: Basophils % 0.3 %; Eosinophils # 0.1 K/mcL (0.0-0.6); Hematocrit 38.1 % (35.3-44.9); Hemoglobin 11.9 g/dL (11.5-15.4); Immature Granulocytes % 1.3 % (0-4); Lymphocytes # 1.8 K/mcL (0.6-4.6); Lymphocytes % 18.6 %; Mean Corpuscular HGB Conc 31.2 g/dL (31.6-35.5); Mean Corpuscular Hemoglobin 27.9 pg (28.0-33.3); Mean Corpuscular Volume 89.4 fL (83.0-100.0); Mean Platelet Volume 10.6 fL (9.4-12.4); Monocytes # 1.1 K/mcL (0.0-1.3); Monocytes % 10.7 %; Neutrophils # 6.8 K/mcL (1.6-8.9); Platelet Count 256 K/mcL (140-400); Red Blood Count 4.26 M/mcL (3.82-4.97); Red Cell Distribution Width 14.2 % (11.5-14.5); Segmented Neutrophils % 68.1 %; White Blood Count 9.9 K/mcL (4.3-11.1)
[2019-04-27 05:51] LABS: Potassium 3.7 mEq/L (3.5-5.1)
[2019-04-27] MEDS: Piperacillin/Tazobactam 3.375 GM in 0.9 % Sodium Chloride Mini Bag 100 ML IVPB SCH ×2 (08:30→08:38)
[2019-04-27] MEDS: PEGVISOMANT SQ SCH (08:32)
[2019-04-27] MEDS: 0.9 % Sodium Chloride 1,000 ML IVC SCH ×2 (08:32→19:30)
[2019-04-27 08:40] LABS: Calcium 8.8 mg/dL (8.6-10.3); Potassium 3.5 mEq/L (3.5-5.1)
[2019-04-27 08:57] LABS: Sodium, Urine 59.6 mEq/L
[2019-04-27 09:18] LABS: Bacteria,Urine None Seen per hpf (None-Few); Bilirubin,Urine Negative (Negative); Blood,Urine Negative (Negative); Clarity,Urine Clear (Clear); Color,Urine Yellow (Yellow); Glucose,Urine (UA) Normal (Normal); Hyaline Casts,Urine None Seen per lpf (None-Few); Ketones,Urine Negative (Negative); Leukocyte Esterase,Urine Negative (Negative); Nitrite,Urine Negative (Negative); Protein,Urine 30 mg/dL (Neg-Trace); RBC,Urine 0-3 per hpf (0-3); Squamous Epithelial Cell,Urine Moderate per lpf (None-Few); Urobilinogen,Urine Normal (Normal); WBC,Urine 0-3 per hpf (0-3)
--- NOTE | 2019-04-27 10:48 | Internal Med Progress Note ---
Hospitalist Progress Note - Encounter Date of Encounter: 04/27/19 Time of Encounter: 08:15 - Subjective Interval History: Patient seen at bedside. Mentions improvement in the pain. Denies fever, chills, rigors. Is feeling a lot better. On the review of the labs, it was found that the patient creatinine went up to 2.21 from a baseline of 0.68. Patient has had a total urine output output of 2.25 L yesterday. Denies any pain with history of kidney problems. No other overnight events. - Exam Vitals: Temp Pulse Resp BP Pulse Ox 98.3 F 61 15 130/84 95 04/27/19 07:04 04/27/19 07:04 04/27/19 07:04 04/27/19 07:04 04/27/19 07:04 Exam: General: Alert and oriented 3 Skin:Normal color, no rash, no lesions. HEENT: Edema of the right side of the face over the mandible and extending to the right ear, erythema improved, mild tenderness to palpation, swelling is also improved.. Abdomen:Soft, nontender. Cardiovascular:Normal S1 & S2, no rubs, murmurs or gallops. No JVD. Pulse regular. Lungs:Normal breath sounds, no wheezes or crackles., non-tender, no rigidity. Extremities:No deformity, no edema or tenderness, no joint swelling or clubbing. Neurological:Normal cognition and motor skills. Pulses:Carotid and radial pulses normal +2. - Assessment and Plan (1) Cellulitis Current Visit: Yes Status: Acute Assessment and Plan: History of right sided swelling and pain along with fever . WBC count improving Afebrile. Hemodynamic stable. CT scan of the head with contrast consistent with cellulitis around the right ear region with no evidence for abscess. Blood cultures have been sent. Awaiting results Able to swallow the food without any difficulty. Denies any problem with the breathing. No suspicion of any abscess compromising the respiratory tract in the neck but cannot be ruled out. Low threshold for CT scan. Worsening in the kidney functions, likley due to antibiotics. D/W Dr. Haji, antibioitcs changed to Daptomycin and cefepime, dosing d/w pharmacy ENT on board, no surgical intervention at this point. (2) Facial swelling Current Visit: Yes Status: Acute Assessment and Plan: Likely cellulitis. Management mentioned above. (3) Acromegaly Current Visit: No Assessment and Plan: Continue patient's home regimen (4) Swelling of right ear Current Visit: Yes Status: Acute Assessment and Plan: Secondary to cellulitis. Does not seem to be having any ear discharge. ENT on board, apprciate recommnedations (5) Severe sepsis Current Visit: Yes Status: Acute Assessment and Plan: Patient presenting with Fever, tachycardia, and Leukocytosis. Found to have a lactic acid of 2.8. Patient received 2 L of fluid bolus in the ED. Repeat lactic acid 1.0. Currently hemodynamically stable Continue antibiotics Follow up cultures (6) Hypokalemia Current Visit: Yes Status: Acute Assessment and Plan: Resolved. Potassium normal (7) DVT prophylaxis Current Visit: Yes Status: Acute Assessment and Plan: Subcutaneous heparin. (8) Acute kidney injury Current Visit: Yes Status: Acute Assessment and Plan: Patient creatinine went up to 2.21 from 0.71 negative baseline. Likely etiology seems to be use of vancomycin and Zosyn. FeNA calculated to be 2.3%, consistent with intrinsic pathology. Patient seems to be hypovolemic, started the patient on IV fluids. U/O of 1100 for today Discontinue vancomycin and Zosyn. After discussion with ID, patient has been started on daptomycin and cefepime. Renally dosed. Nephrology consulted. Urine studies sent. - Time Spent with Patient Total time spent is greater than 50% in coordination of care (as documented) at patient's floor/unit and/or counseling patient: Internal Medicine: Result - Labs CBC & Chem 7: 04/27/19 04:15 04/27/19 08:08 Labs: Short CBC 04/27/19 Range/Units 04:15 WBC 9.9 (4.3-11.1) K/mcL Hgb 11.9 (11.5-15.4) g/dL Hct 38.1 (35.3-44.9) % Plt Count 256 (140-400) K/mcL Neutrophils # 6.8 (1.6-8.9) K/mcL BMP 04/27/19 04/27/19 04:15 08:08 Sodium 143 144 Potassium 3.7 3.5 Chloride 103 106 Carbon Dioxide 26 26 BUN 16 17 Creatinine 2.12 H 2.21 H Glucose 114 H 120 H Calcium 9.0 8.8 Urine 04/27/19 Range/Units 08:20 Urine Color Yellow (Yellow) Urine Clarity Clear (Clear) Urine pH 7.0 (5.0-8.0) pH Units Ur Specific [place] 1.010 (1.010-1.025) Urine Protein 30 H (Neg-Trace) mg/dL Urine Glucose (UA) Normal (Normal) mg/dL - ABG Interpretation ABG results: PT/INR, D-dimer PT 14.1 Seconds (9.4-12.1) H 04/25/19 04:45 Consult Discharge Plan - Plan Referrals: Eron Jackson MD [Primary Care Provider] - (1) Cellulitis Qualifiers: Site of cellulitis: face Qualified Code(s): L03.211 - Cellulitis of face
[2019-04-27] MEDS: Cefepime HCl 1,000 MG in 0.9 % Sodium Chloride Mini Bag 100 ML IVPB SCH (11:27)
[2019-04-27] MEDS ORDERED: Aminoglycoside Consult 1 EACH MC ONE (12:02)
[2019-04-27] MEDS: DAPTOmycin 350 MG in 0.9 % Sodium Chloride 100 ML IVPB SCH (12:38)
--- NOTE | 2019-04-27 13:09 | Nephrology Consult Note ---
Date of Encounter: 04/27/19 Time of Encounter: 13:04 Assessment and Plan (1) Acute kidney injury Current Visit: Yes Status: Acute The patient has multifactorial acute kidney injury. She was exposed to both iodinated contrast along with intravenous vancomycin at a time that she carried the diagnosis of sepsis. Of concern is the rapid rise in her creatinine, however she is not oliguric. While she had Toradol listed as a medication to be given if needed I do not see that she received any Toradol. At this time I am hopeful that her renal function will recover given her good urine output. Since she has been volume negative for last 2 days I agree with intravenous fluid to make sure she is at least euvolemic. At the time my evaluation she does not need hemodialysis nor a renal biopsy. I recommend avoiding any unnecessary nephrotoxic agents. Adjust medications for renal function. Thank you for this interesting consult we will continue to follow with you. (2) Cellulitis Current Visit: Yes Status: Acute Per the primary team. Infectious disease has been consult and is following. Qualifiers: Site of cellulitis: face Qualified Code(s): L03.211 - Cellulitis of face (3) Hypokalemia Current Visit: Yes Status: Acute Potassium is normal. (4) Sepsis Current Visit: Yes Status: Acute Per the primary team. Seems to be improving. Qualifiers: Sepsis type: sepsis due to unspecified organism Sepsis acute organ dysfunction status: without acute organ dysfunction Qualified Code(s): A41.9 - Sepsis, unspecified organism (5) Accelerated hypertension Current Visit: No Status: Acute Her blood pressures currently control. History of Present Illness - Reason for Consult Consult date: 04/27/19 Acute Kidney Injury - Chief Complaint marla - History of Present Illness Ms. Mcintosh is a 48 yo woman who presents for the evaluation of facial swelling. She was diagnosed with cellulitis along with severe sepsis. She was treated with antibiotics and fluid after receiving a CT scan with contrast. The patient does not have a history of kidney disease. She states she currently feels better and denies chest pain, shortness of breath, nausea, or vomiting. [facility] was consult to investigate the acute kidney injury. Past Med Surg Social Fam HX - Past Medical History Medical history: other Additional medical history: Acromegally. 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 brain - Social History Smoking Status: Former smoker Smokeless Tobacco Status: No Alcohol use: occasionally Drug use: none - Family History Mother Living Status: Still Living Hx Family Cardiac Disorders: No (HTN) Hx Family Cancer: No (ovarian) Medications and Allergies Cabergoline 0.25 mg PO TUFR 04/19/19 [History] Pegvisomant [Somavert] 30 mg SQ DAILY 04/25/19 [History] Allergy/AdvReac Type Severity Reaction Status Date / Time No Known Allergies Allergy Verified 08/06/17 11:31 Review of Systems All Systems: reviewed and no additional remarkable complaints except as stated (As documented in the history of present illness) Exam - Vital Signs Vital signs: Initial Vital Signs Temp Pulse Resp BP Pulse Ox 103 F H 100 18 165/93 99 04/24/19 18:53 04/24/19 18:53 04/24/19 18:53 04/24/19 18:53 04/24/19 18:53 Vital Signs - Last 8 Hours Temp Pulse Resp BP Pulse Ox 04/27/19 11:12 98.7 F 58 15 135/84 95 04/27/19 07:04 98.3 F 61 15 130/84 95 Intake and Output 04/26/19 04/27/19 04/27/19 23:59 07:59 15:59 Intake Total 100 / 1150 350 / 450 100 / 450 Output Total 450 / 2250 0 / 1100 1100 / 1100 Balance -350 / -1100 350 / -650 -1000 / -650 Intake: IV Fluids 100 / 550 350 / 450 100 / 450 Maxipime 1,000 MG In 0.9 % 100 / 100 Sodium Chloride (Mini-Bag +) 100 ML @ 200 mls/hr IVPB Q24H [facility] Rx#:[id number] Zosyn 3.375 GM In 0.9 % Sodium 100 / 300 100 / 100 Chloride (Mini-Bag +) 100 ML @ 25 mls/hr IVPB Q8HR GEORGE Rx#: [id number] Vancocin 1,250 MG In 0.9 % 250 / 250 Sodium Chloride 250 ML @ 166.67 mls/hr IVPB Q12H GEORGE Rx#: [id number] Oral 0 / 600 Output: Urine 450 / 2250 0 / 1100 1100 / 1100 Other: Stool Size Moderate Stool Consistency formed Stool Characteristics Normal for Patient Stool Color Brown # Bowel Movements 2 - General Appearance General appearance: well-developed, well-nourished EENT: ATNC Neck: supple Respiratory: course breath sounds Cardiology: no edema, regular rate Gastrointestinal: no tenderness Integumentary: no rash, warm and dry Neurologic: alert and oriented x3 Musculoskeletal: no cyanosis Psychiatric: mood/affect appropriate Results - Lab Results 04/27/19 04:15 04/27/19 08:08 Most recent lab results 04/27/19 04/27/19 04/27/19 04:15 08:08 08:20 Calcium 9.0 8.8 Urine Creatinine 39 Urine Sodium 59.6 Consult Discharge Plan - Plan Referrals: Eron Jackson MD [Primary Care Provider] -
--- NOTE | 2019-04-27 16:47 | ENT - Progress Note ---
Date of Encounter: 04/27/19 Time of Encounter: 04:30 - Assessment and Plan (1) Facial swelling Current Visit: Yes Status: Acute Resolving preauricular cellulitis much less severe than yesterday much less tender patient has been afebrile for several days creatinine elevation concerning for nephrotoxicity patient clinically improving antibiotics have been changed because of possible nephrotoxicity I think this patient will continue to do well there is no identifiable source for the cellulitis need for further evaluation at this point continued ENT surveillance certainly if patient worsens we should be notified Subjective Patient reports: no new complaints, feels better, still having pain, pain is less, afebrile Objective Initial Vital Signs Temp Pulse Resp BP Pulse Ox 103 F H 100 18 165/93 99 04/24/19 18:53 04/24/19 18:53 04/24/19 18:53 04/24/19 18:53 04/24/19 18:53 - General physical appearance well developed, well nourished, no distress, moderate pain - Eyes PERRL - ENT normal pinna, normal nares, normal mucosa - Neck no masses, no lymphadectomy, other (There is a minor amount of swelling in the preauricular region the erythema and swelling are markedly reduced in the area of its demarcated with a marking pen the patient feels much better there was no pain on the intraoral examination on palpation of the tonsil tongue base or the submandibular area intraorally) - Respiratory normal expansion, normal respiratory effort - Abdomen soft - Integumentary no rash, other (Slight erythema of right preauricular area markedly decreased from previous evaluations on the other days markedly less painful) - Neurologic CN 2-12 grossly intact - Labs 04/27/19 04:15 04/27/19 08:08 Diabetes panel 04/27/19 04/27/19 Range/Units 04:15 08:08 Sodium 143 144 (136-145) mEq/L Potassium 3.7 3.5 (3.5-5.1) mEq/L Chloride 103 106 (98-107) mEq/L Carbon Dioxide 26 26 (23-29) mEq/L BUN 16 17 (6-20) mg/dL Creatinine 2.12 H 2.21 H (0.60-1.20) mg/dL Glucose 114 H 120 H (70-105) mg/dL Calcium 9.0 8.8 (8.6-10.3) mg/dL Calcium panel 04/27/19 04/27/19 Range/Units 04:15 08:08 Calcium 9.0 8.8 (8.6-10.3) mg/dL Pituitary panel 04/27/19 04/27/19 Range/Units 04:15 08:08 Sodium 143 144 (136-145) mEq/L Potassium 3.7 3.5 (3.5-5.1) mEq/L Chloride 103 106 (98-107) mEq/L Carbon Dioxide 26 26 (23-29) mEq/L BUN 16 17 (6-20) mg/dL Creatinine 2.12 H 2.21 H (0.60-1.20) mg/dL Glucose 114 H 120 H (70-105) mg/dL Calcium 9.0 8.8 (8.6-10.3) mg/dL Adrenal panel 04/27/19 04/27/19 Range/Units 04:15 08:08 Sodium 143 144 (136-145) mEq/L Potassium 3.7 3.5 (3.5-5.1) mEq/L Chloride 103 106 (98-107) mEq/L Carbon Dioxide 26 26 (23-29) mEq/L BUN 16 17 (6-20) mg/dL Creatinine 2.12 H 2.21 H (0.60-1.20) mg/dL Glucose 114 H 120 H (70-105) mg/dL Calcium 9.0 8.8 (8.6-10.3) mg/dL Consult Discharge Plan - Plan Referrals: Eron Jackson MD [Primary Care Provider] -
[2019-04-28] MEDS: 0.9 % Sodium Chloride 1,000 ML IVC SCH ×2 (05:53→14:26)
[2019-04-28] MEDS: *HR* Heparin 5,000 UNIT/ML VIAL SQ SCH ×3 (05:53→21:34)
[2019-04-28 08:32] LABS: Basophils % 0.2 %; Eosinophils % 0.3 %; Hematocrit 35.7 % (35.3-44.9); Hemoglobin 11.4 g/dL (11.5-15.4); Immature Granulocytes % 0.9 % (0-4); Lymphocytes # 1.1 K/mcL (0.6-4.6); Lymphocytes % 9.7 %; Mean Corpuscular HGB Conc 31.9 g/dL (31.6-35.5); Mean Corpuscular Hemoglobin 28.1 pg (28.0-33.3); Mean Corpuscular Volume 88.1 fL (83.0-100.0); Mean Platelet Volume 10.2 fL (9.4-12.4); Monocytes # 1.2 K/mcL (0.0-1.3); Monocytes % 10.2 %; Neutrophils # 9.1 K/mcL (1.6-8.9); Platelet Count 259 K/mcL (140-400); Red Blood Count 4.05 M/mcL (3.82-4.97); Red Cell Distribution Width 13.8 % (11.5-14.5); Segmented Neutrophils % 78.7 %; White Blood Count 11.6 K/mcL (4.3-11.1)
[2019-04-28 08:54] LABS: Albumin 3.4 g/dL (3.5-5.7); Calcium 8.8 mg/dL (8.6-10.3); Phosphorous 4.5 mg/dL (2.7-4.5); Potassium 3.5 mEq/L (3.5-5.1)
--- NOTE | 2019-04-28 09:58 | Nephrology Progress Note ---
Date of Encounter: 04/28/19 Time of Encounter: 09:54 - Assessment and Plan (1) Acute kidney injury Current Visit: Yes Status: Acute The patient has multifactorial acute kidney injury. She was exposed to both iodinated contrast along with intravenous vancomycin at a time that she carried the diagnosis of sepsis. Of concern is the rapid rise in her creatinine, however she is not oliguric. While she had Toradol listed as a medication to be given if needed I do not see that she received any Toradol. At this time I am hopeful that her renal function will recover given her good urine output. Since she has been volume negative for last 2 days I agree with intravenous fluid to make sure she is at least euvolemic. At the time my evaluation she does not need hemodialysis nor a renal biopsy. I recommend avoiding any unnecessary nephrotoxic agents. Adjust medications for renal function. Her creatinine is at a plateau and hopefully will start to decrease within the next 1-2 days. Continue with intravenous fluids. (2) Cellulitis Current Visit: Yes Status: Acute Qualifiers: Site of cellulitis: face Qualified Code(s): L03.211 - Cellulitis of face (3) Hypokalemia Current Visit: Yes Status: Acute (4) Sepsis Current Visit: Yes Status: Acute Qualifiers: Sepsis type: sepsis due to unspecified organism Sepsis acute organ dysfunction status: without acute organ dysfunction Qualified Code(s): A41.9 - Sepsis, unspecified organism (5) Accelerated hypertension Current Visit: No Status: Acute Subjective Principal diagnosis: marla Interval history: The patient was seen. She has no new complaint. She is eating breakfast. She has slight nausea, but no vomiting. Her review of systems is either negative or stable. Objective - Vital Signs Vital signs: Vital Signs Temp Pulse Resp BP Pulse Ox 04/28/19 06:47 99.6 F 69 15 131/76 96 04/28/19 03:45 98.8 F 72 17 134/88 94 04/27/19 19:30 99.3 F 64 17 146/86 97 04/27/19 14:01 98.9 F 65 15 127/83 95 04/27/19 11:12 98.7 F 58 15 135/84 95 Intake and Output 04/27/19 04/28/19 04/28/19 23:59 07:59 15:59 Intake Total 1000 / 1670 1240 / 1834 594 / 1834 Output Total 2250 / 3350 1100 / 3350 Balance 1000 / -130 -1010 / -1516 -506 / -1516 Intake: IV Fluids 1000 / 1550 1000 / 1594 594 / 1594 0.9 % Sodium Chloride 1,000 ML 1000 / 1000 1000 / 1594 594 / 1594 @ 125 mls/hr IVC .Q8H [facility] Rx#: [id number] Oral 240 / 240 Output: Urine 2250 / 3350 1100 / 3350 Other: Weight 88.3 kg Patient Weight 04/28/19 23:59 Weight 88.3 kg - General Appearance General appearance: Present: well-developed, well-nourished EENT: Present: ATNC Neck: Present: supple Cardiology: Present: regular rate Neurologic: Present: alert and oriented x3 Psychiatric: Present: mood/affect appropriate - Lab 04/28/19 08:14 04/28/19 08:14 Most recent lab results 04/28/19 08:14 Calcium 8.8 Phosphorus 4.5 Consult Discharge Plan - Plan Referrals: Eron Jackson MD [Primary Care Provider] -
--- NOTE | 2019-04-28 11:13 | Internal Med Progress Note ---
Hospitalist Progress Note - Encounter Date of Encounter: 04/28/19 Time of Encounter: 11:09 - Subjective Interval History: Patient with regression of erythema on face and less pain and face. Feels otherwise good this morning. - Exam Vitals: Temp Pulse Resp BP Pulse Ox 98.8 F 66 15 137/86 98 04/28/19 10:48 04/28/19 10:48 04/28/19 10:48 04/28/19 10:48 04/28/19 10:48 Exam: General: Ill-appearing and in no acute distress HEENT: R face with mild erythema but significant regression from presentation. No swelling noted. Lymphatics: No mandibular or cervical lymphadenopathy Cardiovascular: RRR. No murmurs. No chest wall tenderness. Lungs: Clear to auscelltation bilaterally. Regular chest rise. Abdomen: Non-tender. No rebound or gaurding. Nl bowel sounds. Extremities: No edema. 2+ pulses radial and pedal pulses Skin: No rahses, abrasions, or contusions. Nl cap refill. Psych: Nl attention. 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 5/5 strength. Sensation to light touch and pinprick intact. - Assessment and Plan (1) Severe sepsis Current Visit: Yes Status: Acute Assessment and Plan: Patient presents with pain in and erythema of right side of face meeting sepsis criteria on admission with extensive erythema and swelling of right temporal region on physical exam and evidence of cellulitis on CT without evidence of abscess. -Patient is prediabetic but no other risk factors for aggressive infection of the face -Was evaluated by ENT and do not think infection is of otologic or glandular origin -Has been on broad-spectrum antibiotics with interval improvement Developed history of present illness from Deniz Navarrete so switched to daptomycin and cefepime Per ID, can switch to Bactrim plus Augmentin, however, Bactrim not ideal in setting of COLE[facility] PLAN: - We will leave patient on daptomycin and cefepime for today given she will remain in the hospital because of COLE[place] DC tomorrow, will ask ID if they prefer an alternative to Bactrim (2) Cellulitis Current Visit: Yes Status: Acute Assessment and Plan: See above (3) Acromegaly Current Visit: No Assessment and Plan: History of acromegaly (4) Acute kidney injury Current Visit: Yes Status: Acute Assessment and Plan: In the setting of use of vancomycin and Zosyn and sepsis on admission. Urine protein elevated but otherwise urinalysis within normal limits. Retro- peritoneal ultrasound within normal limits. Nephrology consulted and recommend changing antibiotics, IVF, and trend. - IVF today - Reassess tomorrow DVT Prophylaxis: heparin Internal Medicine: Result - Labs CBC & Chem 7: 04/28/19 08:14 04/28/19 08:14 Labs: Short CBC 04/28/19 Range/Units 08:14 WBC 11.6 H (4.3-11.1) K/mcL Hgb 11.4 L (11.5-15.4) g/dL Hct 35.7 (35.3-44.9) % Plt Count 259 (140-400) K/mcL Neutrophils # 9.1 H (1.6-8.9) K/mcL BMP 04/28/19 08:14 Sodium 144 Potassium 3.5 Chloride 107 Carbon Dioxide 27 BUN 15 Creatinine 2.26 H Glucose 120 H Calcium 8.8 Liver Function 04/28/19 Range/Units 08:14 Albumin 3.4 L (3.5-5.7) g/dL - ABG Interpretation ABG results: PT/INR, D-dimer PT 14.1 Seconds (9.4-12.1) H 04/25/19 04:45 - Impressions Impressions Retroperitoneum Ultrasound 04/27/19 13:20 IMPRESSION: No evidence of hydronephrosis. Normal renal cortical echogenicity. D/ / Emile Hylton MD / Emile Hylton MD Interpreting Provider: Emile Hylton MD Consult Discharge Plan - Plan Referrals: Eron Jackson MD [Primary Care Provider] - (2) Cellulitis Qualifiers: Site of cellulitis: face Qualified Code(s): L03.211 - Cellulitis of face
[2019-04-28] MEDS: Cefepime HCl 1,000 MG in 0.9 % Sodium Chloride Mini Bag 100 ML IVPB SCH (11:33)
[2019-04-28] MEDS: PEGVISOMANT SQ SCH (11:35)
[2019-04-28 12:12] LABS: Estimated Average Glucose 134 mg/dl
[2019-04-28] MEDS: Acetaminophen 325 MG TABLET PO PRN (17:14)
--- NOTE | 2019-04-28 19:47 | ENT - Progress Note ---
Date of Encounter: 04/28/19 Time of Encounter: 07:30 - Assessment and Plan (1) Facial swelling Current Visit: Yes Status: Acute Resolving preauricular cellulitis much less severe than yesterday much less tender patient has been afebrile for several days creatinine elevation concerning for nephrotoxicity patient clinically improving antibiotics have been changed because of possible nephrotoxicity I think this patient will continue to do well there is no identifiable source for the cellulitis need for further evaluation at this point continued ENT surveillance certainly if patient worsens we should be notified called in to evaluate patient on 91 because of recurrent temperature elevation the original site of cellulitis is improved compared to yesterday and there is very little tenderness today essentially none compared to yesterday patient has no complaints in the head and neck region CT was evaluated and noted to be fairly unremarkable and in fact that improved since the other day no further ENT evaluation deemed necessary Subjective Patient reports: no new complaints, feels better (Called by hospitalist because of temperature elevation tonight suggested we repeat CT to reevaluate the facial cellulitis and rule out deep abscess) Objective Initial Vital Signs Temp Pulse Resp BP Pulse Ox 103 F H 100 18 165/93 99 04/24/19 18:53 04/24/19 18:53 04/24/19 18:53 04/24/19 18:53 04/24/19 18:53 - General physical appearance well developed, well nourished, no distress, no pain - Eyes PERRL, normal ocular movement - ENT normal pinna, normal nares, normal mucosa, no hearing loss, Other (There is less tenderness she is essentially asymptomatic with minimal erythema no pain on swallowing or palpating of the external neck today) - Neck no masses (Nontender neck no palpable suggestion of abscess) - Labs 04/28/19 08:14 04/28/19 08:14 Diabetes panel 04/28/19 04/28/19 Range/Units 08:14 11:35 Sodium 144 (136-145) mEq/L Potassium 3.5 (3.5-5.1) mEq/L Chloride 107 (98-107) mEq/L Carbon Dioxide 27 (23-29) mEq/L BUN 15 (6-20) mg/dL Creatinine 2.26 H (0.60-1.20) mg/dL Glucose 120 H (70-105) mg/dL Hemoglobin A1c 6.3 H ( - 5.6) % Calcium 8.8 (8.6-10.3) mg/dL Albumin 3.4 L (3.5-5.7) g/dL Calcium panel 04/28/19 Range/Units 08:14 Calcium 8.8 (8.6-10.3) mg/dL Phosphorus 4.5 (2.7-4.5) mg/dL Albumin 3.4 L (3.5-5.7) g/dL Pituitary panel 04/28/19 Range/Units 08:14 Sodium 144 (136-145) mEq/L Potassium 3.5 (3.5-5.1) mEq/L Chloride 107 (98-107) mEq/L Carbon Dioxide 27 (23-29) mEq/L BUN 15 (6-20) mg/dL Creatinine 2.26 H (0.60-1.20) mg/dL Glucose 120 H (70-105) mg/dL Calcium 8.8 (8.6-10.3) mg/dL Adrenal panel 04/28/19 Range/Units 08:14 Sodium 144 (136-145) mEq/L Potassium 3.5 (3.5-5.1) mEq/L Chloride 107 (98-107) mEq/L Carbon Dioxide 27 (23-29) mEq/L BUN 15 (6-20) mg/dL Creatinine 2.26 H (0.60-1.20) mg/dL Glucose 120 H (70-105) mg/dL Calcium 8.8 (8.6-10.3) mg/dL Albumin 3.4 L (3.5-5.7) g/dL Consult Discharge Plan - Plan Referrals: Eron Jackson MD [Primary Care Provider] -
[2019-04-29] MEDS: 0.9 % Sodium Chloride 1,000 ML IVC SCH ×3 (00:02→16:37)
[2019-04-29 05:00] LABS: Albumin 3.4 g/dL (3.5-5.7); Calcium 8.8 mg/dL (8.6-10.3); Phosphorous 3.5 mg/dL (2.7-4.5); Potassium 3.3 mEq/L (3.5-5.1)
[2019-04-29] MEDS: *HR* Heparin 5,000 UNIT/ML VIAL SQ SCH ×3 (06:03→21:36)
[2019-04-29 08:11] LABS: Hematocrit 33.8 % (35.3-44.9); Hemoglobin 10.9 g/dL (11.5-15.4); Mean Corpuscular HGB Conc 32.2 g/dL (31.6-35.5); Mean Corpuscular Hemoglobin 28.6 pg (28.0-33.3); Mean Corpuscular Volume 88.7 fL (83.0-100.0); Mean Platelet Volume 9.8 fL (9.4-12.4); Platelet Count 232 K/mcL (140-400); Red Blood Count 3.81 M/mcL (3.82-4.97); Red Cell Distribution Width 13.6 % (11.5-14.5)
--- NOTE | 2019-04-29 10:42 | Nephrology Progress Note ---
Date of Encounter: 04/29/19 Time of Encounter: 10:40 - Assessment and Plan (1) Acute kidney injury Current Visit: Yes Status: Acute The patient has multifactorial acute kidney injury. She was exposed to both iodinated contrast along with intravenous vancomycin at a time that she carried the diagnosis of sepsis. Of concern is the rapid rise in her creatinine, however she is not oliguric. While she had Toradol listed as a medication to be given if needed I do not see that she received any Toradol. At this time I am hopeful that her renal function will recover given her good urine output. Since she has been volume negative for last 2 days I agree with intravenous fluid to make sure she is at least euvolemic. At the time my evaluation she does not need hemodialysis nor a renal biopsy. I recommend avoiding any unnecessary nephrotoxic agents. Adjust medications for renal function. Her creatinine is at a plateau and hopefully will start to decrease within the next 1-2 days. Continue with intravenous fluids. Okay to judiciously give supplemental potassium for her hypokalemia. (2) Cellulitis Current Visit: Yes Status: Acute Per the primary team. Infectious disease and ENT have been consulted and is following. Qualifiers: Site of cellulitis: face Qualified Code(s): L03.211 - Cellulitis of face (3) Hypokalemia Current Visit: Yes Status: Acute (4) Sepsis Current Visit: Yes Status: Acute Qualifiers: Sepsis type: sepsis due to unspecified organism Sepsis acute organ dysfunction status: without acute organ dysfunction Qualified Code(s): A41.9 - Sepsis, unspecified organism (5) Accelerated hypertension Current Visit: No Status: Acute Subjective Principal diagnosis: marla Interval history: The patient was seen. She has no new complaint. She is eating breakfast. Her review of systems is either negative or stable. Objective - Vital Signs Vital signs: Vital Signs Temp Pulse Resp BP Pulse Ox 04/29/19 07:00 98.5 F 69 15 129/76 94 04/29/19 03:30 99.5 F 70 17 148/83 96 04/28/19 18:52 97.9 F 71 16 121/77 95 04/28/19 18:07 99.7 F H 04/28/19 15:12 101.3 F H 67 15 146/86 94 04/28/19 10:48 98.8 F 66 15 137/86 98 Intake and Output 04/28/19 04/29/19 04/29/19 23:59 07:59 15:59 Intake Total 368 / 2708 2700 / 2820 120 / 2820 Output Total 600 / 4950 2700 / 2700 Balance -232 / -2242 0 / 120 120 / 120 Intake: IV Fluids 368 / 2468 1999 0.9 % Sodium Chloride 1,000 ML 368 / 2368 1999 @ 125 mls/hr IVC .Q8H [facility] Rx#: [id number] Oral 700 / 820 120 / 820 Output: Urine 600 / 4950 2700 / 2700 Other: Meal Breakfast Percent of Meal Consumed 40% - General Appearance General appearance: Present: well-developed, well-nourished EENT: Present: ATNC Neck: Present: supple Cardiology: Present: regular rate Integumentary: Present: warm and dry Neurologic: Present: alert and oriented x3 Musculoskeletal: Present: no cyanosis Psychiatric: Present: mood/affect appropriate - Lab 04/29/19 07:57 04/29/19 04:09 Most recent lab results 04/29/19 04:09 Calcium 8.8 Phosphorus 3.5 Consult Discharge Plan - Plan Referrals: Eron Jackson MD [Primary Care Provider] -
--- NOTE | 2019-04-29 11:16 | Internal Med Progress Note ---
Hospitalist Progress Note - Encounter Date of Encounter: 04/29/19 Time of Encounter: 11:10 - Subjective Interval History: Feeling improved from yesterday. Lisinopril face feels less swollen. Family very concerned about patient and would like to have her stay in the hospital until all acute issues resolve. - Exam Vitals: Temp Pulse Resp BP Pulse Ox 98.5 F 69 15 129/76 94 04/29/19 07:00 04/29/19 07:00 04/29/19 07:00 04/29/19 07:00 04/29/19 07:00 Exam: General: Ill-appearing and in no acute distress HEENT: R face with mild erythema but significant regression from presentation. No swelling noted. Lymphatics: No mandibular or cervical lymphadenopathy Cardiovascular: RRR. No murmurs. No chest wall tenderness. Lungs: Clear to auscelltation bilaterally. Regular chest rise. Abdomen: Non-tender. No rebound or gaurding. Nl bowel sounds. Extremities: No edema. 2+ pulses radial and pedal pulses Skin: No rahses, abrasions, or contusions. Nl cap refill. Psych: Nl attention. 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 5/5 strength. Sensation to light touch and pinprick intact. - Assessment and Plan (1) Severe sepsis Current Visit: Yes Status: Acute Assessment and Plan: Patient presents with pain in and erythema of right side of face meeting sepsis criteria on admission with extensive erythema and swelling of right temporal region on physical exam and evidence of cellulitis on CT without evidence of abscess. -Patient is prediabetic but no other risk factors for aggressive infection of the face -Was evaluated by ENT and do not think infection is of otologic or glandular origin -Has been on broad-spectrum antibiotics with interval improvement Developed COLEMAN with vancomycin and Zosyn so switched to daptomycin and cefepime Spiked a fever yesterday and increase in leukocytosis today. CT face yesterday with improvement Given this, feel need to keep patient one more day to ensure resolution Some concern for alternative etiologies for presentation, such as inflammatory diseases: Pulmonary renal syndromes considered, however, states symptoms are not part of respiratory tract Giant cell arteritis would be considered, however, no visual symptoms Inflammatory etiologies less likely given initial improvement with IV antibiotics PLAN: - We will leave patient on daptomycin and cefepime for today - We will have ID reevaluate patient before discharge tomorrow - ESR, CRP, ANCA (2) Cellulitis Current Visit: Yes Status: Acute Assessment and Plan: See above (3) Acromegaly Current Visit: No Assessment and Plan: History of acromegaly (4) Acute kidney injury Current Visit: Yes Status: Acute Assessment and Plan: In the setting of use of vancomycin and Zosyn and sepsis on admission. Urine protein elevated but otherwise urinalysis within normal limits. Retro- peritoneal ultrasound within normal limits. Nephrology consulted and recommend changing antibiotics, IVF, and trend. Slightly improved. - IVF today - Reassess tomorrow DVT Prophylaxis: heparin Internal Medicine: Result - Labs CBC & Chem 7: 04/29/19 07:57 04/29/19 04:09 Labs: Short CBC 04/29/19 Range/Units 07:57 WBC 13.0 H (4.3-11.1) K/mcL Hgb 10.9 L (11.5-15.4) g/dL Hct 33.8 L (35.3-44.9) % Plt Count 232 (140-400) K/mcL BMP 04/29/19 04:09 Sodium 142 Potassium 3.3 L Chloride 109 H Carbon Dioxide 24 BUN 14 Creatinine 2.11 H Glucose 115 H Calcium 8.8 Liver Function 04/29/19 Range/Units 04:09 Albumin 3.4 L (3.5-5.7) g/dL - ABG Interpretation ABG results: PT/INR, D-dimer PT 14.1 Seconds (9.4-12.1) H 04/25/19 04:45 - Impressions Impressions Face CT 04/28/19 18:02 IMPRESSION: Findings of cellulitis about the right ear are less noticeable than on prior study. No abscess formation. No new abnormality evident in the interval since prior exam. D/ / Arian Aranda / Arian Aranda Interpreting Provider: Arian Aranda Consult Discharge Plan - Plan Referrals: Eron Jackson MD [Primary Care Provider] - (2) Cellulitis Qualifiers: Site of cellulitis: face Qualified Code(s): L03.211 - Cellulitis of face
[2019-04-29] MEDS: Cefepime HCl 1,000 MG in 0.9 % Sodium Chloride Mini Bag 100 ML IVPB SCH (16:38)
[2019-04-29] MEDS: PEGVISOMANT SQ SCH (16:46)
[2019-04-29] MEDS: DAPTOmycin 350 MG in 0.9 % Sodium Chloride 100 ML IVPB SCH (16:50)
[2019-04-29] MEDS: Acetaminophen 325 MG TABLET PO PRN (16:57)
[2019-04-30] MEDS: 0.9 % Sodium Chloride 1,000 ML IVC SCH ×6 (01:17→23:06)
[2019-04-30 05:29] LABS: Hematocrit 31.8 % (35.3-44.9); Hemoglobin 10.1 g/dL (11.5-15.4); Mean Corpuscular HGB Conc 31.8 g/dL (31.6-35.5); Mean Corpuscular Hemoglobin 28.1 pg (28.0-33.3); Mean Corpuscular Volume 88.6 fL (83.0-100.0); Mean Platelet Volume 10.5 fL (9.4-12.4); Platelet Count 218 K/mcL (140-400); Red Blood Count 3.59 M/mcL (3.82-4.97); Red Cell Distribution Width 13.8 % (11.5-14.5); White Blood Count 15.2 K/mcL (4.3-11.1)
[2019-04-30 05:48] LABS: Albumin 3.2 g/dL (3.5-5.7); Calcium 8.6 mg/dL (8.6-10.3); Phosphorous 2.5 mg/dL (2.7-4.5); Potassium 3.6 mEq/L (3.5-5.1)
[2019-04-30] MEDS: *HR* Heparin 5,000 UNIT/ML VIAL SQ SCH ×3 (06:09→23:07)
[2019-04-30] MEDS: CABERGOLINE 0.5 MG PO SCH (10:11)
[2019-04-30] MEDS: PEGVISOMANT SQ SCH (10:11)
[2019-04-30] MEDS: Piperacillin/Tazobactam 3.375 GM in 0.9 % Sodium Chloride Mini Bag 100 ML IVPB SCH ×3 (11:20→23:05)
--- NOTE | 2019-04-30 12:06 | Infectious Disease Progress No ---
ID Progress Note Date of Encounter: 04/30/19 Time of Encounter: 11:54 - Subjective Subjective: Agency and examined. Clinically doing significantly better. Less pain and swelling in the right face. No hearing problem. Patient denies any chest pain or shortness of breath. No diarrhea no urinary symptoms. one soft BM today. Vital signs reviewed Tmax 100.6F labs noted - Objective CBC & Chem 7: 04/30/19 04:29 04/30/19 04:29 - Exam Vitals: Temp Pulse Resp BP Pulse Ox 98.9 F 60 20 123/77 98 04/30/19 07:35 04/30/19 07:35 04/30/19 07:35 04/30/19 07:35 04/30/19 10:24 Exam: GENERAL: Comfortable. Laying in bed NAD HEENT: LUIS EDUARDO, EOMI. Facial swelling is almost all gone. non tender, erythema minimal LUNGS: Good air sounds bilaterally, no wheezing or rhonchi CV: RRR, S1 S2 ABDOMEN: Soft, nontender, + bowel sounds EXT: Adequate perfusion. No edema NEURO: A&OX3; no focal deficit - Assessment and Plan (1) Sepsis Current Visit: Yes Status: Acute Patient had 3 SIRS criteria on admission Secondary to facial cellulitis/mass Also concern for bacteremia but blood cultures pending Qualifiers: Sepsis type: sepsis due to unspecified organism Sepsis acute organ dysfunction status: without acute organ dysfunction Qualified Code(s): A41.9 - Sepsis, unspecified organism SNOMED Code(s): 53996255 (2) Facial swelling Current Visit: Yes Status: Acute Symptoms started 2 days prior to admission associated with fevers chills and rigors CT face 04/24/2019: Cellulitis seen around the right ear region with no evidence for abscess Blood cultures obtained 09/29 sets 04/24/2019. No growth to date. Causative organism or etiology unknown. Patient had her mumps vaccine when she was young. SNOMED Code(s): 255102738 (3) Swelling of right ear Current Visit: Yes Status: Acute SNOMED Code(s): 393787304 (4) Acromegaly Current Visit: No Status: Chronic Status post pituitary surgery SNOMED Code(s): 58836527 (5) Acute kidney injury Current Visit: Yes Status: Acute Etiology not clear Appreciate nephrology input Patient's Vanco trough was only 11. Patient's 48 years old and has no other comorbidities like diabetes to cause this acute kidney injury. Not sure there is something else going on. We will discuss with the nephrology team. SNOMED Code(s): 77295369, 58446690 - Recommendations Recommendations: At this point we will continue with the daptomycin Stop cefepime Start Zosyn We will ask pharmacy to help with the dosing of the daptomycin Repeat CT reviewed Check pro calcitonin, check differential, check peripheral smear, check ESR. Clinically patient is doing well other than the persistent fever. I am not sure. She has something autoimmune or vasculitis going on. While her continue with the daptomycin and Zosyn, on discharge consider Augmentin plus levofloxacin. I will wait for labs to finalize. Consult Discharge Plan - Plan Referrals: Eron Jackson MD [Primary Care Provider] -
--- NOTE | 2019-04-30 12:24 | Nephrology Progress Note ---
Date of Encounter: 04/30/19 Time of Encounter: 12:19 - Assessment and Plan (1) Acute kidney injury Current Visit: Yes Status: Acute The patient has multifactorial acute kidney injury. She was exposed to both iodinated contrast along with intravenous vancomycin at a time that she carried the diagnosis of sepsis. Of concern was the rapid rise in her creatinine, fortunately she was not oliguric. While she had Toradol listed as a medication to be given if needed I do not see that she received any Toradol. Her renal function is improving and she has good urine output. No need for additional hydration from a renal standpoint. At the time my evaluation she does not need hemodialysis nor a renal biopsy. I recommend avoiding any unnecessary nephrotoxic agents. Adjust medications for renal function. Okay to judiciously give supplemental potassium for her hypokalemia. As she is nonoliguric, her renal function improving, and we have been asked the patient for her acute kidney injury I think it is okay for her to be discharged from a renal standpoint. For the next week she needs to maintain good hydration with at least 2-3 L of fluids daily. I recommend getting a renal function panel a week after discharge. She should follow-up with [facility] to 4 months after discharge with a renal function panel 1 week prior to the clinic visit. We will sign off. Please call if any questions or concerns. (2) Cellulitis Current Visit: Yes Status: Acute Qualifiers: Site of cellulitis: face Qualified Code(s): L03.211 - Cellulitis of face (3) Hypokalemia Current Visit: Yes Status: Acute (4) Sepsis Current Visit: Yes Status: Acute Qualifiers: Sepsis type: sepsis due to unspecified organism Sepsis acute organ dysfun ction status: without acute organ dysfunction Qualified Code(s): A41.9 - Sepsis, unspecified organism (5) Accelerated hypertension Current Visit: No Status: Acute Subjective Principal diagnosis: marla Interval history: The patient was seen. She has no new complaint. Her review of systems is either negative or stable. Objective - Vital Signs Vital signs: Vital Signs Temp Pulse Resp BP Pulse Ox 04/30/19 11:56 98.7 F 69 17 129/78 99 04/30/19 10:24 98 04/30/19 07:35 98.9 F 60 20 123/77 96 04/30/19 04:54 99.7 F H 66 16 131/81 95 04/29/19 23:11 98.8 F 58 16 115/73 96 04/29/19 19:21 98.7 F 65 16 117/76 96 04/29/19 16:52 100.6 F H 68 14 136/78 95 04/29/19 12:50 99.9 F H 62 15 148/85 97 Intake and Output 04/29/19 04/30/19 04/30/19 23:59 07:59 15:59 Intake Total 1200 / 4020 1000 / 2120 1120 / 2120 Output Total 1300 / 4000 1350 / 1350 Balance -100 / 20 -350 / 770 1120 / 770 Intake: IV Fluids 1200 / 3200 1000 / 2000 1000 / 2000 0.9 % Sodium Chloride 1,000 ML 1000 / 3000 1000 / 2000 1000 / 2000 @ 125 mls/hr IVC .Q8H [facility] Rx#: [id number] Maxipime 1,000 MG In 0.9 % 100 / 100 Sodium Chloride (Mini-Bag +) 100 ML @ 200 mls/hr IVPB Q24H [facility] Rx#:[id number] Cubicin 350 MG In 0.9 % Sodium 100 / 100 Chloride 100 ML @ 200 mls/hr IVPB Q48H [facility] Rx#:[id number] Oral 0 / 820 0 / 120 120 / 120 Output: Urine 1300 / 4000 1350 / 1350 Other: Meal Breakfast Percent of Meal Consumed 5% Weight 88 kg Patient Weight 04/30/19 23:59 Weight 88 kg - General Appearance General appearance: Present: well-developed, well-nourished EENT: Present: ATNC Cardiology: Present: regular rate Gastrointestinal: Present: obese Neurologic: Present: alert and oriented x3 Musculoskeletal: Present: no cyanosis Psychiatric: Present: mood/affect appropriate - Lab 04/30/19 04:29 04/30/19 04:29 Most recent lab results 04/30/19 04:29 Calcium 8.6 Phosphorus 2.5 L Consult Discharge Plan - Plan Referrals: Eron Jackson MD [Primary Care Provider] -
[2019-04-30 12:31] LABS: Basophils % 0.2 %; Eosinophils # 0.1 K/mcL (0.0-0.6); Eosinophils % 0.7 %; Lymphocytes # 1.1 K/mcL (0.6-4.6); Lymphocytes % 7.1 %; Monocytes # 1.5 K/mcL (0.0-1.3); Monocytes % 9.7 %; Neutrophils # 12.2 K/mcL (1.6-8.9); Segmented Neutrophils % 81.3 %
--- NOTE | 2019-04-30 15:34 | Internal Med Progress Note ---
Hospitalist Progress Note - Encounter Date of Encounter: 04/30/19 Time of Encounter: 15:32 - Subjective Interval History: Patient feeling clinically improved. Denies cough, chest pain, dysuria, abdominal pain. - Exam Vitals: Temp Pulse Resp BP Pulse Ox 98.7 F 69 17 129/78 99 04/30/19 11:56 04/30/19 11:56 04/30/19 11:56 04/30/19 11:56 04/30/19 11:56 Exam: General: Ill-appearing and in no acute distress HEENT: R face with mild erythema but significant regression from presentation. No swelling noted. Lymphatics: No mandibular or cervical lymphadenopathy Cardiovascular: RRR. No murmurs. No chest wall tenderness. Lungs: Clear to auscelltation bilaterally. Regular chest rise. Abdomen: Non-tender. No rebound or gaurding. Nl bowel sounds. Extremities: No edema. 2+ pulses radial and pedal pulses Skin: No rahses, abrasions, or contusions. Nl cap refill. Psych: Nl attention. 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 5/5 strength. Sensation to light touch and pinprick intact. - Assessment and Plan (1) Severe sepsis Current Visit: Yes Status: Acute Assessment and Plan: Patient presents with pain in and erythema of right side of face meeting sepsis criteria on admission with extensive erythema and swelling of right temporal region on physical exam and evidence of cellulitis on CT without evidence of abscess. -Patient is prediabetic but no other risk factors for aggressive infection of the face -Was evaluated by ENT and do not think infection is of otologic or glandular origin -Has been on broad-spectrum antibiotics with interval improvement Developed COLEMAN with vancomycin and Zosyn so switched to daptomycin and cefepime Spiked a fever again and increase in leukocytosis today. On exam, clinically improved and interval CT face 04/28 with improvement Discussed with ID. Recommended switching from cefepime to Zosyn Some concern for alternative etiologies for presentation, such as inflammatory diseases: Pulmonary renal syndromes considered, however, states symptoms are not part of respiratory tract Giant cell arteritis would be considered, however, no visual symptoms Inflammatory etiologies less likely given initial improvement with IV antibiotics but ID recommends EWELINA and ANCA PLAN: - Daptomycin - Cefepime --> Zosyn - ANCA and EWELINA - Re-assess tomorrow (2) Cellulitis Current Visit: Yes Status: Acute Assessment and Plan: See above (3) Acromegaly Current Visit: No Assessment and Plan: History of acromegaly and follows closely with [facility] with yearly MRIs. (4) Acute kidney injury Current Visit: Yes Status: Acute Assessment and Plan: In the setting of use of vancomycin and Zosyn and sepsis on admission and getting CT scan with contrast. Urine protein elevated but otherwise urinalysis within normal limits. Retro-peritoneal ultrasound within normal limits. Nephrology consulted and recommend changing antibiotics, IVF, and trend. Slightly improved. - IVF today - Reassess tomorrow DVT Prophylaxis: heparin Internal Medicine: Result - Labs CBC & Chem 7: 04/30/19 04:29 04/30/19 04:29 Labs: Short CBC 04/30/19 Range/Units 04:29 WBC 15.2 H (4.3-11.1) K/mcL Hgb 10.1 L (11.5-15.4) g/dL Hct 31.8 L (35.3-44.9) % Plt Count 218 (140-400) K/mcL Neutrophils # 12.2 H (1.6-8.9) K/mcL BMP 04/30/19 04:29 Sodium 141 Potassium 3.6 Chloride 105 Carbon Dioxide 25 BUN 13 Creatinine 1.95 H Glucose 125 H Calcium 8.6 Liver Function 04/30/19 Range/Units 04:29 Albumin 3.2 L (3.5-5.7) g/dL - ABG Interpretation ABG results: PT/INR, D-dimer PT 14.1 Seconds (9.4-12.1) H 04/25/19 04:45 Consult Discharge Plan - Plan Referrals: Eron Jackson MD [Primary Care Provider] - _ (2) Cellulitis Qualifiers: Site of cellulitis: face Qualified Code(s): L03.211 - Cellulitis of face
[2019-05-01] MEDS: *HR* Heparin 5,000 UNIT/ML VIAL SQ SCH ×3 (06:07→21:12)
[2019-05-01 06:14] LABS: Hematocrit 29.8 % (35.3-44.9); Hemoglobin 9.6 g/dL (11.5-15.4); Mean Corpuscular HGB Conc 32.2 g/dL (31.6-35.5); Mean Corpuscular Hemoglobin 28.4 pg (28.0-33.3); Mean Corpuscular Volume 88.2 fL (83.0-100.0); Platelet Count 216 K/mcL (140-400); Red Blood Count 3.38 M/mcL (3.82-4.97); Red Cell Distribution Width 13.9 % (11.5-14.5)
[2019-05-01 06:42] LABS: Albumin 3.1 g/dL (3.5-5.7); Calcium 8.5 mg/dL (8.6-10.3); Phosphorous 3.7 mg/dL (2.7-4.5); Potassium 3.6 mEq/L (3.5-5.1)
[2019-05-01] MEDS: Piperacillin/Tazobactam 3.375 GM in 0.9 % Sodium Chloride Mini Bag 100 ML IVPB SCH ×2 (08:22→16:57)
[2019-05-01] MEDS: DAPTOmycin 350 MG in 0.9 % Sodium Chloride 100 ML IVPB SCH (13:37)
[2019-05-01] MEDS: 0.9 % Sodium Chloride 1,000 ML IVC SCH ×2 (13:44→21:12)
--- NOTE | 2019-05-01 14:27 | Infectious Disease Progress No ---
ID Progress Note Date of Encounter: 05/01/19 Time of Encounter: 14:24 - Subjective Subjective: Agency and examined. Clinically doing significantly better. Less pain and swelling in the right face. No hearing problem. Patient denies any chest pain or shortness of breath. No diarrhea no urinary symptoms. one soft BM today. Vital signs reviewed Tmax 100.6F labs noted - Objective CBC & Chem 7: 05/01/19 04:51 05/01/19 04:51 - Exam Vitals: Temp Pulse Resp BP Pulse Ox 98.0 F 50 18 117/78 97 05/01/19 12:05 05/01/19 12:05 05/01/19 12:05 05/01/19 12:05 05/01/19 12:05 Exam: GENERAL: Comfortable. Laying in bed NAD HEENT: LUIS EDUARDO, EOMI LUNGS: Good air sounds bilaterally, no wheezing or rhonchi CV: RRR, S1 S2 ABDOMEN: Soft, nontender, + bowel sounds EXT: Adequate perfusion. No edema NEURO: A&OX3; no focal deficit - Assessment and Plan (1) Sepsis Current Visit: Yes Status: Acute Patient had 3 SIRS criteria on admission Secondary to facial cellulitis/mass Also concern for bacteremia but blood cultures pending Qualifiers: Sepsis type: sepsis due to unspecified organism Sepsis acute organ dysfunction status: without acute organ dysfunction Qualified Code(s): A41.9 - Sepsis, unspecified organism SNOMED Code(s): 69487670 (2) Facial swelling Current Visit: Yes Status: Acute Symptoms started 2 days prior to admission associated with fevers chills and rigors CT face 04/24/2019: Cellulitis seen around the right ear region with no evidence for abscess Blood cultures obtained 09/29 sets 04/24/2019. No growth to date. Causative organism or etiology unknown. Patient had her mumps vaccine when she was young. SNOMED Code(s): 697025587 (3) Swelling of right ear Current Visit: Yes Status: Acute SNOMED Code(s): 980070643 (4) Acromegaly Current Visit: No Status: Chronic Status post pituitary surgery SNOMED Code(s): 31992538 (5) Acute kidney injury Current Visit: Yes Status: Acute Etiology not clear Appreciate nephrology input Patient's Vanco trough was only 11. Patient's 48 years old and has no other comorbidities like diabetes to cause this acute kidney injury. Not sure there is something else going on. We will discuss with the nephrology team. SNOMED Code(s): 73095736, 47329583 - Recommendations Recommendations: Patient doing much better clinically no erythema no edema no pain no facial pain. Patient's fever subsided over 36 hours. Leukocytosis normalized. Kidney function continues to improve. Pro-calcitonin was negative. ESR is 105. I am not sure why the patient inflammatory markers are still elevated. Concern for possible underlying autoimmune issue. I think the patient is okay to go home on Avelox plus doxycycline. We reviewed Avelox and it does not need to be dose adjust this based on her creatinine clearance of 30 and doxycycline does not need to be adjusted either. Duration of treatment through 05/08/2019. Discussed with the hospitalist team. Consult Discharge Plan - Plan Referrals: Eron Jackson MD [Primary Care Provider] -
--- NOTE | 2019-05-01 15:19 | Internal Med Progress Note ---
Hospitalist Progress Note - Encounter Date of Encounter: 05/01/19 Time of Encounter: 10:20 - Subjective Interval History: No major events overnight. Patient was seen this a.m. SHe denied fever, chills or night sweats. SHe has no nausea, vomiting or abdominal pain. Patient denied chest pain, shortness of breath or palpitation. - Exam Vitals: Temp Pulse Resp BP Pulse Ox 98.0 F 50 18 117/78 97 05/01/19 12:05 05/01/19 12:05 05/01/19 12:05 05/01/19 12:05 05/01/19 12:05 Exam: General: Ill-appearing and in no acute distress HEENT: R face with no erythema Lymphatics: No mandibular or cervical lymphadenopathy Cardiovascular: RRR. No murmurs. No chest wall tenderness. Lungs: Clear to auscelltation bilaterally. Regular chest rise. Abdomen: Non-tender. No rebound or gaurding. Nl bowel sounds. Extremities: No edema. 2+ pulses radial and pedal pulses Skin: No rahses, abrasions, or contusions. Nl cap refill. Psych: Nl attention. 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 5/5 strength. Sensation to light touch and pinprick intact. - Assessment and Plan (1) Severe sepsis Current Visit: Yes Status: Resolved Assessment and Plan: - Patient presents with pain in and erythema of right side of face meeting sepsis criteria on admission with extensive erythema and swelling of right temporal region on physical exam and evidence of cellulitis on CT without evidence of abscess. - Was evaluated by ENT and do not think infection is of otologic or glandular origin - Hospitalization course was complicated by fever and elevated WBC counts. She has been afebrile for 48 hours and leukocytosis resolved today. Repeat CT scan revealed improvement of her cellulitis. - Currently on daptomycin and Zosyn as per ID, switched to doxycycline and moxifloxacin at discharge. - Concern was for autoimmune disease given her elevated ESR, worsening kidney dysfunction and autoimmune antibodies are still pending. (2) Cellulitis Current Visit: Yes Status: Acute Assessment and Plan: See above (3) Acute kidney injury Current Visit: Yes Status: Acute Assessment and Plan: - Improving, creatinine improved to 1.7 from 1.9 today. She has adequate urinary output. Likely from contrast exposure, vancomycin trough was normal. - Nephrology is on board. Retroperitoneal ultrasound with no significant hydronephrosis. (4) Acromegaly Current Visit: Yes Assessment and Plan: History of acromegaly and follows closely with [facility] with yearly MRIs. DVT Prophylaxis: Subcutaneous heparin - Time Spent with Patient Total time spent is greater than 50% in coordination of care (as documented) at patient's floor/unit and/or counseling patient: Internal Medicine: Result - Labs CBC & Chem 7: 05/01/19 04:51 05/01/19 04:51 Labs: Short CBC 05/01/19 Range/Units 04:51 WBC 10.0 (4.3-11.1) K/mcL Hgb 9.6 L (11.5-15.4) g/dL Hct 29.8 L (35.3-44.9) % Plt Count 216 (140-400) K/mcL BMP 05/01/19 04:51 Sodium 145 Potassium 3.6 Chloride 109 H Carbon Dioxide 24 BUN 10 Creatinine 1.75 H Glucose 100 Calcium 8.5 L Liver Function 05/01/19 Range/Units 04:51 Albumin 3.1 L (3.5-5.7) g/dL - ABG Interpretation ABG results: PT/INR, D-dimer PT 14.1 Seconds (9.4-12.1) H 04/25/19 04:45 Consult Discharge Plan - Plan Referrals: Eron Jackson MD [Primary Care Provider] - (2) Cellulitis Qualifiers: Site of cellulitis: face Qualified Code(s): L03.211 - Cellulitis of face
[2019-05-02] MEDS: Piperacillin/Tazobactam 3.375 GM in 0.9 % Sodium Chloride Mini Bag 100 ML IVPB SCH ×2 (00:07→08:28)
[2019-05-02] MEDS: *HR* Heparin 5,000 UNIT/ML VIAL SQ SCH (05:03)
[2019-05-02 05:27] LABS: Hemoglobin 9.6 g/dL (11.5-15.4); Mean Corpuscular Hemoglobin 28.7 pg (28.0-33.3); Mean Corpuscular Volume 89.6 fL (83.0-100.0); Mean Platelet Volume 10.6 fL (9.4-12.4); Platelet Count 231 K/mcL (140-400); Red Blood Count 3.35 M/mcL (3.82-4.97); Red Cell Distribution Width 13.8 % (11.5-14.5); White Blood Count 8.1 K/mcL (4.3-11.1)
[2019-05-02 05:40] LABS: Albumin 3.2 g/dL (3.5-5.7); Calcium 8.5 mg/dL (8.6-10.3); Phosphorous 3.7 mg/dL (2.7-4.5); Potassium 3.7 mEq/L (3.5-5.1)
[2019-05-02] MEDS: 0.9 % Sodium Chloride 1,000 ML IVC SCH (06:50)
[2019-05-02 07:01] VITALS: BP 119/71
[2019-05-02 10:19] LABS: Serine Protease-3 Antibody 3 AU/mL (0-19)
[2019-05-02] MEDS ORDERED: Doxycycline 100 MG CAPSULE PO SCH (10:21)
--- NOTE | 2019-05-02 10:38 | Discharge Summary ---
- NOTES TO OUTPATIENT PROVIDER Notes to Outpatient Provider: Patient was admitted for right facial cellulitis and was treated with IV antibiotics with improvement in her symptoms. Her course was complicated with COLEMAN likely from contrast exposure. She will be discharged home to continue 7 days of oral antibiotics. Recheck BMP in 3 days to confirm resolution of her COLEMAN. Orders not resulted at time of discharge: Pending orders 04/30/19 12:36 EWELINA IgG DELFINO rflx IFA Stat Date of Encounter: 05/02/19 Time of Encounter: 10:40 - Discharge Diagnosis (1) Severe sepsis Priority: Primary Status: Resolved (2) Cellulitis Priority: Secondary Status: Resolved Qualifiers: Site of cellulitis: face Qualified Code(s): L03.211 - Cellulitis of face (3) Acute kidney injury Priority: Secondary Status: Resolved (4) Acromegaly Priority: Secondary Hospital course: Ms. Mcintosh is a 48 year old female with history of acromegaly who was admitted to the hospital due to sepsis related to right facial cellulitis. Patient was initially managed with IV antibiotics by ID. Her course was complicated by intermittent fever and COLEMAN. Nephrology service was consulted and patient was placed on IVF with improvement in her kidney's functions. Her COLEMAN was related to contrast exposure. ID recommended Doxycycline and Moxifloxacin at discharge and those were sent to her outpatient pharmacy for augustin check. 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 Today, patient is afebrile more than 48 hours, hemodynamically stable. She will be discharged home in stable condition. Check BMP in 3 days to confirm resolution of her kidney function Discharge discussed with: patient - Time Spent with Patient Total time spent providing and/or coordinating discharge services: 42 minutes - Discharge Medications Prescriptions: New Moxifloxacin HCl [Avelox] 400 mg PO DAILY #7 tablet Doxycycline 100 mg PO BID 7 Days #14 capsule Continued Pegvisomant [Somavert] 30 mg SQ DAILY No Action Cabergoline 0.25 mg PO TUFR Home Medications: Cabergoline 0.25 mg PO TUFR 04/19/19 [History] Pegvisomant [Somavert] 30 mg SQ DAILY 04/25/19 [History] Doxycycline 100 mg PO BID 7 Days #14 capsule 05/02/19 [Rx] Moxifloxacin HCl [Avelox] 400 mg PO DAILY #7 tablet 05/02/19 [Rx] Allergies/Adverse Reactions: Allergy/AdvReac Type Severity Reaction Status Date / Time No Known Allergies Allergy Verified 08/06/17 11:31 Date of admission: 04/25/19 17:00 Primary care physician: Eron Jackson MD Consults: 04/25/19 09:30 Consult to Infectious Diseases [CONS] Routine Consulting Provider: Infectious Disease Shikha Reason for Consult: Facial swelling and cellulitis Call Completed: Yes 04/25/19 15:17 Consult to ENT [CONS] Routine Consulting Provider: ENT Shikha Reason for Consult: Rigth ear and face cellulitis Call Completed: Yes 04/27/19 07:45 Consult to Nephrology [CONS] Routine Consulting Provider: Kidney Helotes/CUATE/LAURA/ALEX Reason for Consult: PT with sepsis, acute kidney injury, likely ATN. Needs recommendations Call Completed: Yes 05/02/19 07:47 Consult to Farm Operator [CONS] Stat Reason for SW Consult: check insurance for abx treatment - Constitutional Vitals: Temp Pulse Resp BP Pulse Ox 98.6 F 53 16 119/71 97 05/02/19 06:55 05/02/19 06:55 05/02/19 06:55 05/02/19 06:55 05/02/19 08:15 Exam: General: Ill-appearing and in no acute distress HEENT: R face with no erythema Lymphatics: No mandibular or cervical lymphadenopathy Cardiovascular: RRR. No murmurs. No chest wall tenderness. Lungs: Clear to auscelltation bilaterally. Regular chest rise. Abdomen: Non-tender. No rebound or gaurding. Nl bowel sounds. Extremities: No edema. 2+ pulses radial and pedal pulses Skin: No rahses, abrasions, or contusions. Nl cap refill. Psych: Nl attention. 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 5/5 strength. Sensation to light touch and pinprick intact. - Patient Status Disposition: Home, Self-Care Condition: Good Functional capacity at discharge: independent ambulation Overall status at discharge: patient is back to baseline - Ambulatory Orders Ambulatory Orders: Basic Metabolic Panel [CHEM] Time Frame: 3 Days, Facility: [facility], Location: Lab - Discharge Instructions Follow Up With: Eron Jackson MD [Primary Care Provider] - - Diet and Activity Activity: resume usual activities as tolerated Diet: regular diet
[2019-05-03 10:23] LABS: ANA IgG by ELISA NONE DETECTED (None Detected)
== END 2019-05-02 12:03 | disposition home or self-care (01) | DRG 872 ==
LOC: EMEROOARM 18:50 → 3ANU 18:50 → SUATTDRO 21:45 → 3ANU 22:15 → SUATTDRO 04-25 17:00
PROVIDERS: ADMIT Internal Medicine; ATTEND Internal Medicine